=== PATIENT | female | born 1945 ===

== ENCOUNTER 2022-07-13 12:26 | Outpatient (REF) | payer MEDICARE, SELFPAY ==
[2022-07-13 13:49] LABS: MANUAL DIFF FLAG NO
[2022-07-13 13:52] LABS: Basophils Absolute Auto 0.1 X10*3/uL (0.0-0.2); Basophils Percent Auto 0.7 % (0-2); Eosinophils Absolute Auto 1.1 X10*3/uL (0.0-0.4); Eosinophils Percent Auto 12.6 % (0-4); Hematocrit 41.5 % (37.0-47.0); Imm Gran Abs Auto 0.04 X10*3/uL (0.00-0.03); Imm Gran Pct Auto 0.5 % (0.0-0.4); Lymphocytes Absolute Auto 1.6 X10*3/uL (1.2-4.9); Lymphocytes Percent Auto 17.7 % (20-40); Mean Corpuscular HGB Conc 33.7 g/dl (31.0-35.0); Mean Corpuscular Hemoglobin 28.8 pg (27.0-33.0); Mean Corpuscular Volume 85.4 fL (80.0-98.0); Mean Platelet Volume 9.9 fL (9.4-12.3); Monocytes Absolute Auto 0.3 X10*3/uL (0.1-1.2); Monocytes Percent Auto 3.8 % (2-11); Neutrophils Absolute Auto 5.7 x10*3/uL (2.0-8.3); Neutrophils Percent Auto 64.7 % (45-73); Platelet Count 372 X10*3/uL (160-400); Red Blood Count 4.86 X10*6/uL (4.20-5.50); Red Cell Distribution Width 13.2 % (11.0-16.0); White Blood Count 8.8 X10*3/uL (4.8-10.8)
[2022-07-13 14:11] LABS: Anion Gap 13 (12-20); Blood Urea Nitrogen 11 mg/dL (9-16); C Reactive Protein 4.08 mg/dL (< or = 0.50); Calcium 9.8 mg/dL (8.4-10.2); Carbon Dioxide 25 mmol/L (22-29); Chloride 107 mmol/L (96-108); Estimated Glomerular Filt Rate > 60; Glucose Random 106 mg/dL (60-115); Potassium 3.5 mmol/L (3.3-5.1); Rheumatoid Factor < 13.0 IU/mL (<15.0); Sodium 141 mmol/L (135-145)
[2022-07-13 14:33] LABS: Erythrocyte Sedimentation Rate 36 MM/HR (0-20)
[2022-07-15 21:54] LABS: A. Phagocytphilium DNA,RT-PCR NOT DETECTED (NOT DETECTED); Babesia Microti DNA, RT-PCR NOT DETECTED (NOT DETECTED); Borrelia Miyamotoi,DNA RT-PCR NOT DETECTED (NOT DETECTED); E.Chaffeensis DNA RT-PCR NOT DETECTED (NOT DETECTED); Lyme(Borrelia ssp)DNA RT-PCR NOT DETECTED (NOT DETECTED)
== END 2022-07-13 12:27 | disposition home or self-care (01) ==
LOC: HO.HMGCLDS 12:26
PROVIDERS: PCP Internal Medicine; Visit Provider Physician Assistant Medical
DX: M25.50 Pain in unspecified joint (principal); M25.40 Effusion, unspecified joint; R79.82 Elevated C-reactive protein (CRP); R70.0 Elevated erythrocyte sedimentation rate
CPT/HCPCS: 36415; 80048; 84550; 85025; 85652; 86140; 86431; 87798; 87801

== ENCOUNTER 2022-08-18 08:42 | Outpatient (REF) | payer MEDICARE, SELFPAY ==
[2022-08-18 11:28] LABS: MANUAL DIFF FLAG NO
[2022-08-18 11:32] LABS: Basophils Absolute Auto 0.1 X10*3/uL (0.0-0.2); Eosinophils Absolute Auto 0.4 X10*3/uL (0.0-0.4); Eosinophils Percent Auto 5.4 % (0-4); Hematocrit 40.9 % (37.0-47.0); Hemoglobin 13.4 g/dl (12.0-16.0); Imm Gran Abs Auto 0.02 X10*3/uL (0.00-0.03); Imm Gran Pct Auto 0.3 % (0.0-0.4); Lymphocytes Absolute Auto 1.9 X10*3/uL (1.2-4.9); Lymphocytes Percent Auto 26.7 % (20-40); Mean Corpuscular HGB Conc 32.8 g/dl (31.0-35.0); Mean Corpuscular Hemoglobin 28.7 pg (27.0-33.0); Mean Corpuscular Volume 87.6 fL (80.0-98.0); Monocytes Absolute Auto 0.5 X10*3/uL (0.1-1.2); Monocytes Percent Auto 6.2 % (2-11); Neutrophils Absolute Auto 4.4 x10*3/uL (2.0-8.3); Neutrophils Percent Auto 60.4 % (45-73); Platelet Count 342 X10*3/uL (160-400); Red Blood Count 4.67 X10*6/uL (4.20-5.50); Red Cell Distribution Width 13.9 % (11.0-16.0); White Blood Count 7.2 X10*3/uL (4.8-10.8)
[2022-08-18 11:59] LABS: Estimated Average Glucose 97 mg/dL; Hemoglobin A1C 106.9233 umol/L
[2022-08-18 12:20] LABS: Alanine Aminotransferase 29 U/L (0-31); Albumin Level 4.1 g/dL (3.5-5.0); Alkaline Phosphatase 104 U/L (39-117); Anion Gap 13 (12-20); Aspartate Amino Transferase 25 U/L (5-31); Bilirubin Total 0.4 mg/dL (0.0-1.0); Blood Urea Nitrogen 20 mg/dL (9-16); Calcium 10.3 mg/dL (8.4-10.2); Carbon Dioxide 26 mmol/L (22-29); Chloride 107 mmol/L (96-108); Cholesterol 217 mg/dL; Estimated Glomerular Filt Rate > 60; Glucose Fasting 107 mg/dL (60-99); HDL Cholesterol 61 mg/dL; LDL Cholesterol Calculated 143 mg/dl; Potassium 4.3 mmol/L (3.3-5.1); Sodium 142 mmol/L (135-145); Total Protein 6.9 g/dL (6.5-8.0); Triglycerides 67 mg/dL
[2022-08-18 12:38] LABS: TSH reflex Free T4 0.72 uIU/mL (0.32-4.0)
== END 2022-08-18 08:43 | disposition home or self-care (01) ==
LOC: HO.HMGCLDS 08:42
PROVIDERS: PCP Internal Medicine; Visit Provider Internal Medicine
DX: E03.9 Hypothyroidism, unspecified (principal)
CPT/HCPCS: 36415; 80053; 80061; 83036; 84443; 85025

== ENCOUNTER 2023-03-13 13:52 | Outpatient (AMB) | payer MEDICARE, SELFPAY ==
[2023-03-13 14:13] VITALS: BP 140/64; PULSE 55; O2SAT 97; BMI 43.7
--- NOTE | 2023-03-13 14:13 | A.OFFVIS_ITS ---
Intake Vital Signs 03/13/23 14:13 Height 5 ft Weight 224 lb BMI 43.7 BP 140/64 H Blood Pressure Location Lt brachial Position Sitting Pulse 55 Pulse Source Pulse Oximeter Pulse Oximetry (%) 97 Oxygen Delivery Method Room Air Intake Visit Reasons: Obstructive sleep apnea Intake Note: pt is here as a new patient, no problem with sleeping and some short of breath with fast walking. 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 Allergies acetaminophen [From Percocet] Allergy (Verified 03/13/23 16:03) Itching, swelling of the eyelids oxycodone [From Percocet] Allergy (Verified 03/13/23 16:03) Itching, swelling of the eyelids bees Allergy (Uncoded 03/13/23 16:03) itching Medication List - Last Reconciled 03/13/23 by Jesus Starr MD albuterol sulfate 90 mcg/actuation 2 puffs inhalation Q6H PRN amlodipine 5 mg PO DAILY aspirin (Adult Aspirin Regimen) 81 mg PO DAILY ibuprofen 800 mg PO Q8H isosorbide mononitrate ER 30 mg PO DAILY levothyroxine 150 mcg PO DAILY Do you need a note to return to daycare/school/sports/work: No HPI Obstructive sleep apnea HPI Details This is 77 years old very pleasant female of [place] background. Is being seen for the 1st time, as she needed a labor relations specialist on board. She speaks Malay very well and we had a detailed discussion. Actually I have seen her a few weeks ago, who has advanced chronic obstructive pulmonary disease, and he came today to have pulmonary function test. Silvia is more worried and concerned about her then herself. She has an interesting history as follows. She has always been overweight. Back in 2016 she underwent right knee replacement surgery. Post surgery she had low O2 and also manifested breathing pattern of so sleep apnea. She was sent home on oxygen. Later on she also had sleep study which was positive for obstructive sleep apnea and she was provided with this CPAP . To use at night Patient use the CPAP as well as O2 up until 2018, when she and her went to visit [place] and and stayed there for 3 months. Before she left for [place] and she had returned her CPAP as well as O2 equipment. On coming back from [place] she did not have any problem with sleep, she claims that she has been okay and has not felt the need for using CPAP. She was sent for a sleep study at [facility], they tried to quit nasal mask, but she could not tolerated. She declined to use the CPAP. Again she tells me that she has had no problem in sleeping. Her has never complained of her snoring. She is not sure about her oxygen at night. Overnight oximetry recording has not been done. I HAVE MENTIONED THAT WE SHOULD DO PULMONARY FUNCTION TEST, SHE TOLD ME THAT SHE HAS HAD SOME TEST RECENTLY AT [facility]. SO BEFORE I ORDERED A NEW PFT WE ARE GOING TO CHECK INTO. During the days she does get short of breath on walking around, and at times she has some cough and feels like having wheezing. She has albuterol HFA on hand for the past many years but she has really not needed to use. PATIENT IS A NONSMOKER EXCEPT FOR A FEW YEARS IN HER 20S. SHE IS BEING TREATED FOR HYPOTHYROIDISM, AND ALSO FOR QUESTION OF ANGINA. PFS . [facility] Medical History (Updated 03/13/23 @ 16:22 by Jesus Starr MD) Restrictive lung disease Morbid obesity Surgical History History of surgery of uterus History of shoulder surgery Hx of total knee replacement Hx of cholecystectomy Family History Father No problems noted. Mother Breast cancer Lung cancer Sister Breast cancer Social History Housing: House Patient Tobacco Use Status: Former Tobacco user (30 years ago) e-Cigarette/Vaping Use: Never Used Current occupational status: retired Cognitive needs: No Hearing needs: No Vision needs: Yes Review of Systems Const All systems reviewed & are unremarkable except as noted in HPI and below Eyes Reports no additional complaints ENT Reports no additional complaints and Denies nasal obstruction (Has the some kind of blockage of the right nostril, chronically ) Card Denies chest pain, Denies irregular heart rhythm, Denies leg edema and Reports dyspnea on exertion (Mild to moderate) Resp Denies cough, Reports dyspnea on exertion (Mild to moderate) and Denies wheezing GI Reports no additional complaints Reports no additional complaints Musc Reports arthralgias (Knees and shoulders) Skin/Breast Reports system reviewed and no additional complaints, except as documented Neuro Reports no additional complaints Psych Reports no additional complaints Endo Reports other (Hypothyroidism being treated with med) Lorenzo/Lymph Reports no additional complaints Aller/Immun Reports no additional complaints and Denies wheezing Physical Exam Vital Signs: Last Vital Signs Pulse 55 03/13/23 14:13 BP 140/64 H 03/13/23 14:13 Pulse Ox 97 03/13/23 14:13 Oxygen Delivery Method Room Air 03/13/23 14:13 BMI result Body Mass Index 43.7 Patient is grossly obese, with a round face. Const General: comfortable, no acute distress, alert and awake Orientation/consciousness: patient oriented x3 HEENT Head: Yes normal to inspection General nose exam: No nasal polyps present, mucous membranes and turbinates abnormal (There is moderate hypertrophy of the middle turbinate on the right side) and No nasal discharge present Face and sinus: Yes sinuses nontender Mouth: oropharynx normal Throat: Yes posterior oropharynx normal Eyes General: appearance normal, both eyes and all related structures Neck Neck: Yes normal visual inspection, Yes no lymphadenopathy, Yes trachea midline and Yes no JVD Thyroid: Thyroid normal Chest Chest palpation & inspection: normal inspection of the chest, normal palpation of entire chest wall and no tenderness Resp Other: Percussion note not perceptible because of thick chest wall. Breath sounds are as moderately distant. But no wheezes rhonchi or crepitations are heard. Cardio Palpation: normal PMI Rate: regular rate Rhythm: regular rhythm Heart sounds: no gallops and no murmurs GI Palpation (GI): Soft to palpation, nontender, No hepatosplenomegaly present and no masses Auscultation: normal bowel sounds Back/Spine/Pelvis Thoracic/Lumbar Spine: thoracic and lumbar spine normal to inspection and thoraco-lumbar ROM limited Skin General skin exam: no rashes or lesions noted Neuro General: patient oriented x3 and no focal motor deficits Cranial nerves: Yes CN's II-XII intact bilaterally Extrem General: Yes normal to inspection, Yes no clubbing, cyanosis or edema and Yes no calf tenderness Psych Appearance: grossly normal and well kempt Speech and movement: Normal speech and movement present Assessment & Plan Assessment & Plan (1) Morbid obesity: Comment: BMI= 43.7 , STRONG POSSIBILITY OF OBSTRUCTIVE SLEEP APNEA. PATIENT IS AWARE OF BEING OVERWEIGHT, SHE IS NOT ABLE TO LOSE MUCH WEIGHT. Code(s): E66.01 - Morbid (severe) obesity due to excess calories (2) Sleep apnea: Comment: PATIENT DOES HAVE HISTORY OF SLEEP APNEA DOCUMENTED AFTER HER KNEE SURGERY IN 2016, AND SUBSEQUENTLY WITH HIS SLEEP STUDY. USED CPAP AND O2 AT NIGHT BETWEEN 2016 TO 2019, WHEN SHE STOPPED USING AND RETURNED THE CPAP WELL OXYGEN EQUIPMENT. PATIENT CLAIMS THAT SHE SLEEPS WELL WHOLE NIGHT, AND WAKES UP ONLY ONCE OR TWICE TO GO TO THE BATHROOM. SHE DOES NOT WANT TO USE THE CPAP. SHE IS SLEEP STUDY IN THE SLEEP LAB HAS BEEN SCHEDULED BY HER PRIMARY CARE PHYSICIAN BUT SHE SAY IS SHE IS NOT INTERESTED IN HAVING THE STUDY. IF WE CAN DOCUMENT TO HYPOXEMIA AT NIGHT SHE WOULD BE WILLING TO USE OXYGEN AT NIGHT. I WILL ARRANGE FOR DOING OVERNIGHT OXIMETRY RECORDING. Code(s): G47.30 - Sleep apnea, unspecified (3) Nocturnal hypoxia: Comment: used supplemental O2, pt has not seeing pulmonology because of insurance NOTED ABOVE, SHE NEEDS TO HAVE OVERNIGHT OXIMETRY RECORDING. Code(s): G47.34 - Idiopathic sleep related nonobstructive alveolar hypoventilation (4) Restrictive lung disease: Comment: BECAUSE OF HER MORBID OBESITY SHE IS EXPECTED TO HAVE SIGNIFICANT RESTRICTIVE LUNG DISEASE. I WILL ORDER A CHEST X-RAY. SHE IS ADVISED THAT SHE NEEDS TO LOSE WEIGHT. SHE IS ALSO ADVISED TO DO DEEP BREATHING EXERCISES. SHE DOES HAVE AN INCENTIVE SPIROMETRY DEVICE AT HOME. Code(s): J98.4 - Other disorders of lung Orders: Orders XR chest 1V Today E66.01 - Morbid (severe) obesity due to excess calories, J98.4 - Other disorders of lung Coding Level of Care Code New Pt Level 4 (97987) Diagnoses Morbid obesity E66.01 Sleep apnea G47.30 Nocturnal hypoxia G47.34 Restrictive lung disease J98.4
== END 2023-03-13 15:13 | disposition home or self-care (01) ==
PROVIDERS: PCP Internal Medicine; Visit Provider Internal Medicine
DX: E66.01 Morbid (severe) obesity due to excess calories (principal); G47.30 Sleep apnea, unspecified; G47.34 Idiopathic sleep related nonobstructive alveolar hypoventilation; J98.4 Other disorders of lung
CPT/HCPCS: 99204

== ENCOUNTER → 2023-03-13 13:52 | Outpatient (BNVA) | payer MEDICARE, SELFPAY | PROVIDERS: PCP Internal Medicine; Visit Provider Internal Medicine ==

== ENCOUNTER 2023-03-22 08:59 | Outpatient (REF) | payer MEDICARE, SELFPAY | END 2023-03-22 09:00 | disposition home or self-care (01) | LOC: HO.XRAY 08:59 | PROVIDERS: PCP Internal Medicine; Visit Provider Internal Medicine | DX: E66.01 Morbid (severe) obesity due to excess calories (principal); J98.4 Other disorders of lung | CPT/HCPCS: 71045 ==

== ENCOUNTER 2023-05-16 11:52 | Outpatient (AMB) | payer MEDICARE, SELFPAY ==
[2023-05-16 11:54] VITALS: BP 136/80; PULSE 62; O2SAT 98; BMI 43.0
--- NOTE | 2023-05-16 11:54 | A.OFFPC_ITS ---
Vital Signs 05/16/23 11:54 Height 5 ft Weight 220 lb BMI 43.0 BP 136/80 Blood Pressure Location Lt brachial Position Sitting Pulse 62 Pulse Source Pulse Oximeter Pulse Oximetry (%) 98 Oxygen Delivery Method Room Air Intake Visit Reasons: Annual PE/HTN Intake Note: Pt is here today for PE. Allergies acetaminophen [From Percocet] Allergy (Verified 05/16/23 11:55) Itching, swelling of the eyelids oxycodone [From Percocet] Allergy (Verified 05/16/23 11:55) Itching, swelling of the eyelids bees Allergy (Uncoded 05/16/23 11:55) itching Medication List - Last Reconciled 05/16/23 by Queta Ambriz MD albuterol sulfate 90 mcg/actuation 2 puffs inhalation Q6H PRN amlodipine 5 mg PO DAILY aspirin (Adult Aspirin Regimen) 81 mg PO DAILY ibuprofen 800 mg PO Q8H isosorbide mononitrate ER 30 mg PO DAILY levothyroxine 150 mcg PO DAILY Tobacco use date assessed: 05/16/23 Fall risk assessment: No Falls in past year Last assessed Fall Risk: 05/16/23 Dental Screening Dental Screen Date: 05/16/23 Did you have a dental visit in the last 12 months?: Yes Did you have a dental problem in the last 6 months where you did not have access to dental care?: No Was dental information given to patient?: Patient has dentist HPI Annual PE/HTN HPI Details Pt presents for PE. Pt was diagnosed with TENZIN but could not tolerate Cpap. 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 Mother Breast cancer Lung cancer Sister Breast cancer Social History Housing: House Patient Tobacco Use Status: Former Tobacco user (30 years ago) e-Cigarette/Vaping Use: Never Used Current occupational status: retired Cognitive needs: No Hearing needs: No Vision needs: Yes Questionnaire Thrive Questionnaire Date Thrive assessed: 08/15/22 AUDIT C Alcohol Use Questionnaire (AUDIT-C) 1. How often do you have a drink containing alcohol?: Never 3. How often do you have six or more drinks on one occasion?: Never Total Score: 0 ZACH-7 AMB Questionnaire ZACH-7 Date ZACH - 7 assessed: 08/15/22 Source: Developed by Drs. Kulwinder Carcamo, Modesta Capellan, Kory Robert and colleagues, with an educational clara from [employer]. Review of Systems Const All systems reviewed & are unremarkable except as noted in HPI and below Reports no additional complaints Eyes Reports no additional complaints ENT Reports no additional complaints Card Reports no additional complaints Resp Reports no additional complaints GI Reports no additional complaints Reports no additional complaints Physical exam (Primary Care) Vital Signs: Last Vital Signs Pulse 62 05/16/23 11:54 BP 136/80 05/16/23 11:54 Pulse Ox 98 05/16/23 11:54 Oxygen Delivery Method Room Air 05/16/23 11:54 BMI result Body Mass Index 43.0 Tobacco/Smoking Status: Tobacco use Status Tobacco use date assessed 05/16/23 05/16/23 11:58 Patient Tobacco Use Status Former Tobacco user (30 05/16/23 11:58 years ago) e-Cigarette/Vaping Use Never Used 05/16/23 11:58 Thrive Assessment: Date of Thrive Assessment Date Thrive assessed 08/15/22 05/16/23 11:58 Const General: no acute distress HENMT Head: Yes normal to inspection Eyes General: appearance normal, both eyes and all related structures Neck Neck: Yes no lymphadenopathy and Yes supple Resp Effort & Inspection: normal respiratory effort Auscultation: clear to auscultation bilaterally Cardio Rhythm: regular rhythm Heart sounds: S1 normal heart sound present and S2 normal heart sound present GI Inspection: Yes normal to inspection Palpation (GI): Soft to palpation Percussion: Yes normal to percussion Auscultation: normal bowel sounds Assessment and Plan Assessment & Plan (1) Nocturnal hypoxia: Comment: used supplemental O2, pt has not seeing pulmonology because of insurance NOTED ABOVE, SHE NEEDS TO HAVE OVERNIGHT OXIMETRY RECORDING. Code(s): G47.34 - Idiopathic sleep related nonobstructive alveolar hypoventilation (2) Hypothyroid: Code(s): E03.9 - Hypothyroidism, unspecified Plan: Continue levothyroxine check TSH (3) HTN (hypertension): Code(s): I10 - Essential (primary) hypertension Plan: Continue current medications follow-up in 6 months with a fasting labs before (4) Hyperlipidemia: Code(s): E78.5 - Hyperlipidemia, unspecified Plan: Low-cholesterol diet increase exercise weight loss discussed with the patient (5) Obesity: Code(s): E66.9 - Obesity, unspecified Plan: Weight loss discussed with the patient Orders: Orders TSH reflex Free T4 6 Months E03.9 - Hypothyroidism, unspecified, G47.34 - Idiopathic sleep related nonobstructive alveolar hypoventilation, I10 - Essential (primary) hypertension Comprehensive [place]. Panel Fast 6 Months E03.9 - Hypothyroidism, unspecified, G47.34 - Idiopathic sleep related nonobstructive alveolar hypoventilation, I10 - Essential (primary) hypertension Complete Blood Count Auto Diff 6 Months E03.9 - Hypothyroidism, unspecified, G47.34 - Idiopathic sleep related nonobstructive alveolar hypoventilation, I10 - Essential (primary) hypertension Lipid Panel 6 Months E03.9 - Hypothyroidism, unspecified, G47.34 - Idiopathic sleep related nonobstructive alveolar hypoventilation, I10 - Essential (primary) hypertension Medications: Refilled ibuprofen 800 mg PO Q8H 30 tabs 1RF Coding Level of Care Code Est Pt Level 4 (17452) Diagnoses Nocturnal hypoxia G47.34 Hypothyroid E03.9 HTN (hypertension) I10 Hyperlipidemia E78.5 Obesity E66.9
== END 2023-05-16 12:28 | disposition home or self-care (01) ==
PROVIDERS: Visit Provider Internal Medicine
DX: G47.34 Idiopathic sleep related nonobstructive alveolar hypoventilation (principal); E03.9 Hypothyroidism, unspecified; E66.9 Obesity, unspecified; Z68.41 Body mass index [BMI] 40.0-44.9, adult; I10 Essential (primary) hypertension; E78.5 Hyperlipidemia, unspecified
CPT/HCPCS: 99214

== ENCOUNTER 2023-05-16 14:39 | Outpatient (AMB) | payer MEDICARE, SELFPAY ==
[2023-05-16 15:10] VITALS: BP 130/70; PULSE 63; O2SAT 97; BMI 43.0
--- NOTE | 2023-05-16 15:10 | MHC.OFFVIS ---
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 Allergies acetaminophen [From Percocet] Allergy (Verified 05/16/23 15:48) Itching, swelling of the eyelids oxycodone [From Percocet] Allergy (Verified 05/16/23 15:48) Itching, swelling of the eyelids bees Allergy (Uncoded 05/16/23 15:48) itching Medication List - Last Reconciled 05/16/23 by Jesus Starr MD albuterol sulfate 90 mcg/actuation 2 puffs inhalation Q6H PRN amlodipine 5 mg PO DAILY aspirin (Adult Aspirin Regimen) 81 mg PO DAILY ibuprofen 800 mg PO Q8H isosorbide mononitrate ER 30 mg PO DAILY levothyroxine 150 mcg PO DAILY Do you need a note to return to daycare/school/sports/work: No HPI Obstructive sleep apnea HPI Details THIS 77 YEARS OLD VERY PLEASANT FEMALE IS HERE FOR FOLLOW-UP. , SHE IS MORBIDLY OBESE AND HAS CLINICAL FEATURES OF OBSTRUCTIVE SLEEP APNEA. HOWEVER SHE HAS DECLINED TO GO FOR ANY TESTING AND USE CPAP. SHE DOES NOT HAVE ANY CHRONIC PULMONARY DISEASE BUT BECAUSE OF HER MORBID OBESITY IS EXPECTED TO HAVE SIGNIFICANT RESTRICTIVE LUNG DISEASE. SHE WAS CHECKED WITH OVERNIGHT OXIMETRY RECORDING AND FOUND TO HAVE O2 SAT BELOW 88% FOR 36 MINUTES. SHE CLAIMS THAT SHE IS SLEEPING WELL, AND DENIES ANY. DAYTIME SLEEPINESS SHE WILL BE WILLING TO USE O2 AT NIGHTTIME. [facility] Medical History Restrictive lung disease Morbid obesity Surgical History History of surgery of uterus History of shoulder surgery Hx of total knee replacement Hx of cholecystectomy Family History Father No problems noted. Mother Breast cancer Lung cancer Sister Breast cancer Social History Housing: House Patient Tobacco Use Status: Former Tobacco user (30 years ago) e-Cigarette/Vaping Use: Never Used Current occupational status: retired Cognitive needs: No Hearing needs: No Vision needs: Yes Review of Systems Const All systems reviewed & are unremarkable except as noted in HPI and below Eyes Reports no additional complaints ENT Reports no additional complaints and Denies nasal obstruction (Has the some kind of blockage of the right nostril, chronically ) Card Denies chest pain, Denies irregular heart rhythm, Denies leg edema and Reports dyspnea on exertion (Mild to moderate) Resp Denies cough, Reports dyspnea on exertion (Mild to moderate) and Denies wheezing GI Reports no additional complaints Reports no additional complaints Musc Reports arthralgias (Knees and shoulders) Skin/Breast Reports system reviewed and no additional complaints, except as documented Neuro Reports no additional complaints Psych Reports no additional complaints Endo Reports other (Hypothyroidism being treated with med) Lorenzo/Lymph Reports no additional complaints Aller/Immun Reports no additional complaints and Denies wheezing Physical Exam Vital Signs: Last Vital Signs Pulse 63 05/16/23 15:10 BP 130/70 05/16/23 15:10 Pulse Ox 97 05/16/23 15:10 Oxygen Delivery Method Room Air 05/16/23 15:10 BMI result Body Mass Index 43.0 Patient is grossly obese, with a round face. Const General: comfortable, no acute distress, alert and awake Orientation/consciousness: patient oriented x3 HEENT Head: Yes normal to inspection General nose exam: No nasal polyps present, mucous membranes and turbinates abnormal (There is moderate hypertrophy of the middle turbinate on the right side) and No nasal discharge present Face and sinus: Yes sinuses nontender Mouth: oropharynx normal Throat: Yes posterior oropharynx normal Eyes General: appearance normal, both eyes and all related structures Neck Neck: Yes normal visual inspection, Yes no lymphadenopathy, Yes trachea midline and Yes no JVD Thyroid: Thyroid normal Chest Chest palpation & inspection: normal inspection of the chest, normal palpation of entire chest wall and no tenderness Resp Other: Percussion note not perceptible because of thick chest wall. Breath sounds are as moderately distant. But no wheezes rhonchi or crepitations are heard. Cardio Palpation: normal PMI Rate: regular rate Rhythm: regular rhythm Heart sounds: no gallops and no murmurs GI Palpation (GI): Soft to palpation, nontender, No hepatosplenomegaly present and no masses Auscultation: normal bowel sounds Back/Spine/Pelvis Thoracic/Lumbar Spine: thoracic and lumbar spine normal to inspection and thoraco-lumbar ROM limited Skin General skin exam: no rashes or lesions noted Neuro General: patient oriented x3 and no focal motor deficits Cranial nerves: Yes CN's II-XII intact bilaterally Extrem General: Yes normal to inspection, Yes no clubbing, cyanosis or edema and Yes no calf tenderness Psych Appearance: grossly normal and well kempt Speech and movement: Normal speech and movement present Results Reviewed Results Reviewed: OVERNIGHT OXIMETRY RECORDING SHOWS THAT HER O2 SAT WAS BELOW 88% FOR 36 MINUTES. THIS QUALIFIES HER FOR USE OF OXYGEN AT NIGHT. Assessment & Plan Assessment & Plan (1) Morbid obesity: Comment: BMI= 43.0 , PATIENT IS AWARE OF BEING OVERWEIGHT, SHE IS NOT ABLE TO LOSE MUCH WEIGHT. Code(s): E66.01 - Morbid (severe) obesity due to excess calories Plan: DISCUSSED ABOUT HER WEIGHT AND ENCOURAGED TO LOSE WEIGHT EVEN AT A VERY SLOW PACE. (2) Restrictive lung disease: Comment: BECAUSE OF HER MORBID OBESITY SHE IS EXPECTED TO HAVE SIGNIFICANT RESTRICTIVE LUNG DISEASE. SHE IS ADVISED THAT SHE NEEDS TO LOSE WEIGHT. SHE IS ALSO ADVISED TO DO DEEP BREATHING EXERCISES. SHE DOES HAVE AN INCENTIVE SPIROMETRY DEVICE AT HOME. Code(s): J98.4 - Other disorders of lung Plan: ABOVE (3) Nocturnal hypoxia: Comment: Used supplemental O2, Pt has not been seeing pulmonology because of insurance Finally she agreed to have overnight oximetry recording which has confirmed that her O2 sat was below 88% for 36 minutes. Code(s): G47.34 - Idiopathic sleep related nonobstructive alveolar hypoventilation Plan: Explained to her that she would benefit from use of O2 at night. She is agreeable. So O2 concentrator has been ordered and she is advised to use 2 L/minute at night. (4) Sleep apnea: Comment: PATIENT DOES HAVE HISTORY OF SLEEP APNEA DOCUMENTED AFTER HER KNEE SURGERY IN 2016, AND SUBSEQUENTLY WITH HIS SLEEP STUDY. USED CPAP AND O2 AT NIGHT BETWEEN 2016 TO 2019, WHEN SHE STOPPED USING AND RETURNED THE CPAP WELL OXYGEN EQUIPMENT. PATIENT CLAIMS THAT SHE SLEEPS WELL WHOLE NIGHT, AND WAKES UP ONLY ONCE OR TWICE TO GO TO THE BATHROOM. SHE DOES NOT WANT TO USE THE CPAP. Code(s): G47.30 - Sleep apnea, unspecified Plan: as above Coding Level of Care Code Est Pt Level 3 (81168) Diagnoses Morbid obesity E66.01 Restrictive lung disease J98.4 Nocturnal hypoxia G47.34 Sleep apnea G47.30
== END 2023-05-16 16:00 | disposition home or self-care (01) ==
PROVIDERS: PCP Internal Medicine; Visit Provider Internal Medicine
DX: E66.01 Morbid (severe) obesity due to excess calories (principal); J98.4 Other disorders of lung; G47.34 Idiopathic sleep related nonobstructive alveolar hypoventilation; G47.30 Sleep apnea, unspecified
CPT/HCPCS: 99213

== ENCOUNTER → 2023-05-16 14:39 | Outpatient (BNVA) | payer MEDICARE, SELFPAY | PROVIDERS: PCP Internal Medicine; Visit Provider Internal Medicine | DX: G47.30 Sleep apnea, unspecified (principal); G47.34 Idiopathic sleep related nonobstructive alveolar hypoventilation; J98.4 Other disorders of lung; E66.01 Morbid (severe) obesity due to excess calories; Z68.41 Body mass index [BMI] 40.0-44.9, adult | CPT/HCPCS: 99212 ==

== ENCOUNTER 2023-09-11 13:40 | Outpatient (AMB) | payer MEDICARE, SELFPAY ==
[2023-09-11 14:03] VITALS: BP 140/74; PULSE 97; O2SAT 96; BMI 43.5
--- NOTE | 2023-09-11 14:03 | A.OFFVIS_ITS ---
Intake Vital Signs 09/11/23 14:03 Height 5 ft Weight 222 lb 10.67 oz BMI 43.5 BP 140/74 H Blood Pressure Location Lt brachial Position Sitting Pulse 97 Pulse Source Pulse Oximeter Pulse Oximetry (%) 96 Oxygen Delivery Method Room Air Intake Visit Reasons: Obstructive sleep apnea Intake Note: pt is here for follow up and states she is okay during the day but night time is not good. Allergies acetaminophen [From Percocet] Allergy (Verified 09/11/23 15:06) Itching, swelling of the eyelids oxycodone [From Percocet] Allergy (Verified 09/11/23 15:06) Itching, swelling of the eyelids bees Allergy (Uncoded 09/11/23 15:06) itching Medication List - Last Reconciled 09/11/23 by Jesus Starr MD albuterol sulfate 90 mcg/actuation 2 puffs inhalation Q6H PRN amlodipine 5 mg PO DAILY aspirin (Adult Aspirin Regimen) 81 mg PO DAILY ibuprofen 800 mg PO Q8H isosorbide mononitrate ER 30 mg PO DAILY levothyroxine 150 mcg PO DAILY Do you need a note to return to daycare/school/sports/work: No HPI Obstructive sleep apnea HPI Details Silvia is 77 years old female with morbid obesity. Past history of obstructive sleep apnea and nocturnal hypoxemia , who used O2 at night for about 3 years and gave up in 2018. Now she complains that she has a restless sleep at night and she feels tired during the daytime. She is stating that she is not getting enough oxygen at nighttime. She has no cough or wheezing. During the day she gets short of breath when she walks around, and this may be due to her severe obesity. She had overnight oximetry recording in March 2023 and her O2 sat was below 88% for 36 minutes. We had to try to get her oxygen at home. However it was not covered by insurance because she did not have an associated medical diagnosis [facility] Medical History Restrictive lung disease Morbid obesity Surgical History History of surgery of uterus History of shoulder surgery Hx of total knee replacement Hx of cholecystectomy Family History Father No problems noted. Mother Breast cancer Lung cancer Sister Breast cancer Social History Housing: House Patient Tobacco Use Status: Former Tobacco user (30 years ago) e-Cigarette/Vaping Use: Never Used Current occupational status: retired Cognitive needs: No Hearing needs: No Vision needs: Yes Review of Systems Const All systems reviewed & are unremarkable except as noted in HPI and below Eyes Reports no additional complaints ENT Reports no additional complaints and Denies nasal obstruction (Has the some kind of blockage of the right nostril, chronically ) Card Denies chest pain, Denies irregular heart rhythm, Denies leg edema and Reports dyspnea on exertion (Mild to moderate) Resp Denies cough, Reports dyspnea on exertion (Mild to moderate) and Denies wheezing GI Reports no additional complaints Reports no additional complaints Musc Reports arthralgias (Knees and shoulders) Skin/Breast Reports system reviewed and no additional complaints, except as documented Neuro Reports no additional complaints Psych Reports no additional complaints Endo Reports other (Hypothyroidism being treated with med) Lorenzo/Lymph Reports no additional complaints Aller/Immun Reports no additional complaints and Denies wheezing Physical Exam Vital Signs: Last Vital Signs Pulse 97 09/11/23 14:03 BP 140/74 H 09/11/23 14:03 Pulse Ox 96 09/11/23 14:03 Oxygen Delivery Method Room Air 09/11/23 14:03 BMI result Body Mass Index 43.5 Patient is grossly obese, with a round face. Const General: comfortable, no acute distress, alert and awake Orientation/consciousness: patient oriented x3 HEENT Head: Yes normal to inspection General nose exam: No nasal polyps present, mucous membranes and turbinates abnormal (There is moderate hypertrophy of the middle turbinate on the right side) and No nasal discharge present Face and sinus: Yes sinuses nontender Mouth: oropharynx normal Throat: Yes posterior oropharynx normal Eyes General: appearance normal, both eyes and all related structures Neck Neck: Yes normal visual inspection, Yes no lymphadenopathy, Yes trachea midline and Yes no JVD Thyroid: Thyroid normal Chest Chest palpation & inspection: normal inspection of the chest, normal palpation of entire chest wall and no tenderness Resp Other: Percussion note not perceptible because of thick chest wall. Breath sounds are as moderately distant. But no wheezes rhonchi or crepitations are heard. Cardio Palpation: normal PMI Rate: regular rate Rhythm: regular rhythm Heart sounds: no gallops and no murmurs GI Palpation (GI): Soft to palpation, nontender, No hepatosplenomegaly present and no masses Auscultation: normal bowel sounds Back/Spine/Pelvis Thoracic/Lumbar Spine: thoracic and lumbar spine normal to inspection and thoraco-lumbar ROM limited Skin General skin exam: no rashes or lesions noted Neuro General: patient oriented x3 and no focal motor deficits Cranial nerves: Yes CN's II-XII intact bilaterally Extrem General: Yes normal to inspection, Yes no clubbing, cyanosis or edema and Yes no calf tenderness Psych Appearance: grossly normal and well kempt Speech and movement: Normal speech and movement present Assessment & Plan Assessment & Plan (1) Morbid obesity: Comment: BMI= 43.5 , PATIENT IS AWARE OF BEING OVERWEIGHT, SHE IS NOT ABLE TO LOSE MUCH WEIGHT. Code(s): E66.01 - Morbid (severe) obesity due to excess calories Plan: Discussed with the patient about her weight, but from practical point of view she is not going to be able to lose much weight. She is already trying to watch her diet. She can not do any vigorous exercise. (2) Sleep apnea: Comment: PATIENT DOES HAVE HISTORY OF SLEEP APNEA DOCUMENTED AFTER HER KNEE SURGERY IN 2016, AND SUBSEQUENTLY WITH HER SLEEP STUDY. USED CPAP AND O2 AT NIGHT BETWEEN 2015 TO 2019, WHEN SHE STOPPED USING AND RETURNED THE CPAP WELL OXYGEN EQUIPMENT. PATIENT CLAIMS THAT SHE WAS SLEEPING WELL WHOLE NIGHT, BUT NOW MORE RECENTLY HER SLEEP IS DITURBED , AND SHE FEELS TIRED DURING DAY TIME . SHE IS REQUESTING IF SHE CAN HAVE O2 TO USE AT NIGHT Code(s): G47.30 - Sleep apnea, unspecified Plan: PULMONARY FUNCTION TEST IS ORDERED TO SEE IF SHE HAS ANY SIGNIFICANT RESTRICTIVE PULMONARY DISORDER. WE NEED TO ORDER O2 FOR HER HOME ON BASIS OF A PULMONARY DIAGNOSIS RATHER THAN SLEEP DIAGNOSIS (3) Nocturnal hypoxia: Comment: Used supplemental O2, Pt has not been seeing pulmonology because of insurance . Finally she agreed to have overnight oximetry recording which has confirmed that her O2 sat was below 88% for 36 minutes. Code(s): G47.34 - Idiopathic sleep related nonobstructive alveolar hypoventilation Plan: PULMONARY FUNCTION TEST IS ORDERED TO CHECK IF WE CAN QUALIFY HER FOR OXYGEN ON BASIS OF A PULMONARY DIAGNOSIS . (4) Restrictive lung disease: Comment: BECAUSE OF HER MORBID OBESITY SHE IS EXPECTED TO HAVE SIGNIFICANT RESTRICTIVE LUNG DISEASE. Code(s): J98.4 - Other disorders of lung Plan: SHE IS ADVISED THAT SHE NEEDS TO LOSE WEIGHT. SHE IS ALSO ADVISED TO DO DEEP BREATHING EXERCISES. SHE DOES HAVE AN INCENTIVE SPIROMETRY DEVICE AT HOME. Orders: Orders PFT pulmonary function test Today E66.01 - Morbid (severe) obesity due to excess calories, G47.34 - Idiopathic sleep related nonobstructive alveolar hypoventilation Coding Level of Care Code Est Pt Level 3 (34229) Diagnoses Morbid obesity E66.01 Sleep apnea G47.30 Nocturnal hypoxia G47.34 Restrictive lung disease J98.4
== END 2023-09-11 14:33 | disposition home or self-care (01) ==
PROVIDERS: PCP Internal Medicine; Visit Provider Internal Medicine
DX: E66.01 Morbid (severe) obesity due to excess calories (principal); G47.30 Sleep apnea, unspecified; G47.34 Idiopathic sleep related nonobstructive alveolar hypoventilation; J98.4 Other disorders of lung
CPT/HCPCS: 99213

== ENCOUNTER → 2023-09-11 13:40 | Outpatient (BNVA) | payer MEDICARE, SELFPAY | PROVIDERS: PCP Internal Medicine; Visit Provider Internal Medicine | DX: E66.01 Morbid (severe) obesity due to excess calories (principal); J98.4 Other disorders of lung; G47.34 Idiopathic sleep related nonobstructive alveolar hypoventilation; G47.30 Sleep apnea, unspecified | CPT/HCPCS: 99212 ==

== ENCOUNTER 2023-09-13 09:48 | Outpatient (REF) | payer MEDICARE, SELFPAY ==
[2023-09-13 09:35] VITALS: PULSE 82; RESP 16; O2SAT 96
--- NOTE | 2023-09-13 11:03 | PFT_ITS ---
Flows: FEV1: 100 % of predicted at 1.76 L FVC: 100 % of predicted at 2.30 L FEV1/FVC: 76 % Bronchodilator response: Absent Volumes: Total lung capacity: 90 % of predicted at 3.82 L Residual volume: 87 % of predicted at 1.58 L Slow vital capacity: 94 % of predicted at 2.24 L Expiratory reserve volume: 133 % of predicted at 0.73 L Diffusion capacity: Normal Impression: No obstructive or restrictive ventilatory defect. No bronchodilator response. Normal pulmonary function test. MTDD
== END 2023-09-13 09:49 | disposition home or self-care (01) ==
LOC: HO.RESP 09:48
PROVIDERS: PCP Internal Medicine; Visit Provider Internal Medicine
DX: E66.01 Morbid (severe) obesity due to excess calories (principal); G47.34 Idiopathic sleep related nonobstructive alveolar hypoventilation
CPT/HCPCS: 94010; 94640; 94727; 94729

== ENCOUNTER → 2023-09-13 11:03 | Outpatient (BNV) | payer MEDICARE, SELFPAY | PROVIDERS: PCP Internal Medicine; Visit Provider Internal Medicine Pulmonary Disease | DX: R06.09 Other forms of dyspnea (principal) | CPT/HCPCS: 94060; 94727; 94729 ==

== ENCOUNTER 2023-11-13 09:37 | Outpatient (REF) | payer MEDICARE, SELFPAY ==
[2023-11-13 10:22] LABS: MANUAL DIFF FLAG NO
[2023-11-13 10:33] LABS: Basophils Absolute Auto 0.1 X10*3/uL (0.0-0.2); Eosinophils Absolute Auto 0.3 X10*3/uL (0.0-0.4); Eosinophils Percent Auto 4.3 % (0-4); Hematocrit 43.1 % (37.0-47.0); Hemoglobin 14.2 g/dl (12.0-16.0); Imm Gran Abs Auto 0.04 X10*3/uL (0.00-0.03); Imm Gran Pct Auto 0.6 % (0.0-0.4); Lymphocytes Absolute Auto 2.1 X10*3/uL (1.2-4.9); Mean Corpuscular HGB Conc 32.9 g/dl (31.0-35.0); Mean Corpuscular Hemoglobin 28.5 pg (27.0-33.0); Mean Corpuscular Volume 86.4 fL (80.0-98.0); Mean Platelet Volume 9.4 fL (9.4-12.3); Monocytes Absolute Auto 0.4 X10*3/uL (0.1-1.2); Neutrophils Absolute Auto 4.3 x10*3/uL (2.0-8.3); Neutrophils Percent Auto 59.1 % (45-73); Platelet Count 372 X10*3/uL (160-400); Red Blood Count 4.99 X10*6/uL (4.20-5.50); Red Cell Distribution Width 13.2 % (11.0-16.0); White Blood Count 7.2 X10*3/uL (4.8-10.8)
[2023-11-13 11:24] LABS: Alanine Aminotransferase 26 U/L (0-31); Albumin Level 4.2 g/dL (3.5-5.0); Alkaline Phosphatase 79 U/L (39-117); Anion Gap 11 (12-20); Aspartate Amino Transferase 25 U/L (5-31); Bilirubin Total 0.4 mg/dL (0.0-1.0); Blood Urea Nitrogen 14 mg/dL (9-16); Calcium 10.7 mg/dL (8.4-10.2); Carbon Dioxide 29 mmol/L (22-29); Chloride 106 mmol/L (96-108); Cholesterol 220 mg/dL (<200); Estimated Glomerular Filt Rate > 60; Glucose Fasting 113 mg/dL (60-99); HDL Cholesterol 58 mg/dL (>40); LDL Cholesterol Calculated 146 mg/dL (<100); Potassium 4.3 mmol/L (3.3-5.1); Sodium 142 mmol/L (135-145); Total Protein 7.5 g/dL (6.5-8.0); Triglycerides 81 mg/dL (<150)
== END 2023-11-13 09:38 | disposition home or self-care (01) ==
LOC: HO.HMGCLDS 09:37
PROVIDERS: PCP Internal Medicine; Visit Provider Internal Medicine
DX: E03.9 Hypothyroidism, unspecified (principal); I10 Essential (primary) hypertension; G47.34 Idiopathic sleep related nonobstructive alveolar hypoventilation
CPT/HCPCS: 36415; 80053; 80061; 84439; 84443; 85025

== ENCOUNTER 2023-11-15 12:10 | Outpatient (AMB) | payer MEDICARE, SELFPAY ==
--- NOTE | 2023-11-15 12:21 | MHC.PC.OV ---
Vital Signs 11/15/23 12:23 Height 5 ft Weight 215 lb 8 oz BMI 42.1 BP 139/80 Blood Pressure Location Lt brachial Position Sitting Pulse 84 Pulse Source Pulse Oximeter Pulse Oximetry (%) 98 Oxygen Delivery Method Room Air Intake Visit Reasons: 6 month follow up Allergies acetaminophen [From Percocet] Allergy (Verified 11/15/23 12:25) Itching, swelling of the eyelids oxycodone [From Percocet] Allergy (Verified 11/15/23 12:25) Itching, swelling of the eyelids bees Allergy (Uncoded 09/11/23 15:06) itching Medication List - Last Reconciled 11/15/23 by Queta Ambriz MD albuterol sulfate 90 mcg/actuation 2 puffs inhalation Q6H PRN amlodipine-valsartan 5-160 mg 1 tab PO DAILY aspirin (Adult Aspirin Regimen) 81 mg PO DAILY ibuprofen 800 mg PO .qd isosorbide mononitrate ER 30 mg PO DAILY levothyroxine 137 mcg PO DAILY Tobacco use date assessed: 11/15/23 Fall risk assessment: No Falls in past year Last assessed Fall Risk: 11/15/23 Dental Screening Dental Screen Date: 11/15/23 Did you have a dental visit in the last 12 months?: No Did you have a dental problem in the last 6 months where you did not have access to dental care?: No Was dental information given to patient?: No HPI 6 month follow up HPI Details Pt presents for f/u HTN, hypothyroid, hyperlipidemia PFSH Medical History (Updated 11/15/23 @ 13:01 by Queta Ambriz MD) Restrictive lung disease Morbid obesity Surgical History History of surgery of uterus History of shoulder surgery Hx of total knee replacement Hx of cholecystectomy Family History Father No problems noted. Mother Breast cancer Lung cancer Sister Breast cancer Social History Housing: House Patient Tobacco Use Status: Former Tobacco user (30 years ago) e-Cigarette/Vaping Use: Never Used Current occupational status: retired Cognitive needs: No Hearing needs: No Vision needs: Yes Questionnaire Thrive Questionnaire Date Thrive assessed: 08/15/22 ZACH-7 AMB Questionnaire ZACH-7 Date ZACH - 7 assessed: 08/15/22 Source: Developed by Drs. Kulwinder Carcamo, Modesta Capellan, Kory Robert and colleagues, with an educational clara from [employer]. Review of Systems Const All systems reviewed & are unremarkable except as noted in HPI and below Reports no additional complaints Eyes Reports no additional complaints ENT Reports no additional complaints Card Reports no additional complaints Resp Reports no additional complaints GI Reports no additional complaints Reports no additional complaints Physical exam (Primary Care) Vital Signs: Last Vital Signs Pulse 84 11/15/23 12:23 BP 152/80 H 11/15/23 12:23 Pulse Ox 98 11/15/23 12:23 Oxygen Delivery Method Room Air 11/15/23 12:23 BMI result Body Mass Index 42.1 Tobacco/Smoking Status: Tobacco use Status Tobacco use date assessed 11/15/23 11/15/23 12:25 Patient Tobacco Use Status Former Tobacco user (11/15/23 12:25 years ago) e-Cigarette/Vaping Use Never Used 11/15/23 12:25 Thrive Assessment: Date of Thrive Assessment Date Thrive assessed 08/15/22 11/15/23 12:25 Const General: no acute distress HENMT Head: Yes normal to inspection Ears: hearing grossly normal bilaterally Face and sinus: Yes normal facial exam Mouth: Normal oral and palatal mucosa present Throat: Yes posterior oropharynx normal Eyes General: appearance normal, both eyes and all related structures Neck Neck: Yes no lymphadenopathy and Yes supple Resp Effort & Inspection: normal respiratory effort Auscultation: clear to auscultation bilaterally Cardio Rhythm: regular rhythm Heart sounds: S1 normal heart sound present and S2 normal heart sound present GI Inspection: Yes normal to inspection Palpation (GI): Soft to palpation Percussion: Yes normal to percussion Auscultation: normal bowel sounds Assessment and Plan Assessment & Plan (1) Hypothyroid: Code(s): E03.9 - Hypothyroidism, unspecified Plan: Decrease levothyroxine to 137 mcg and check TSH in 2 months (2) HTN (hypertension): Code(s): I10 - Essential (primary) hypertension Plan: Change amlodipine to amlodipine with valsartan , check basic metabolic panel in 1 week follow-up in 6 weeks (3) Hyperlipidemia: Comment: Patient refuses medications Code(s): E78.5 - Hyperlipidemia, unspecified Plan: Low-cholesterol diet increase physical activity weight loss discussed with the patient (4) Morbid obesity: Comment: BMI= 43.5 , PATIENT IS AWARE OF BEING OVERWEIGHT, SHE IS NOT ABLE TO LOSE MUCH WEIGHT. Code(s): E66.01 - Morbid (severe) obesity due to excess calories Plan: Increase physical activity decrease caloric intake and weight loss discussed with the patient Orders: Orders TSH reflex Free T4 2 Months E03.9 - Hypothyroidism, unspecified Basic Metabolic Panel 1 Week I10 - Essential (primary) hypertension Medications: New amlodipine-valsartan 5-160 mg 1 tab PO DAILY 90 tabs 0RF levothyroxine 137 mcg PO DAILY 90 caps 1RF Changed From ibuprofen 800 mg PO Q8H 30 tabs 1RF To ibuprofen 800 mg PO .qd 30 tabs 2RF Coding Level of Care Code Est Pt Level 4 (61030) Diagnoses Hypothyroid E03.9 HTN (hypertension) I10 Hyperlipidemia E78.5 Morbid obesity E66.01
[2023-11-15 12:23] VITALS: BP 139/80; PULSE 84; O2SAT 98; BMI 42.1
== END 2023-11-15 13:08 | disposition home or self-care (01) ==
PROVIDERS: PCP Internal Medicine; Visit Provider Internal Medicine
DX: E03.9 Hypothyroidism, unspecified (principal); I10 Essential (primary) hypertension; E66.01 Morbid (severe) obesity due to excess calories; Z68.41 Body mass index [BMI] 40.0-44.9, adult; E78.5 Hyperlipidemia, unspecified
CPT/HCPCS: 99214

== ENCOUNTER 2023-12-25 10:41 | Outpatient (REF) | payer MEDICARE, SELFPAY ==
[2023-12-25 13:19] LABS: Anion Gap 12 (12-20); Blood Urea Nitrogen 20 mg/dL (9-16); Calcium 10.3 mg/dL (8.4-10.2); Carbon Dioxide 27 mmol/L (22-29); Chloride 106 mmol/L (96-108); Estimated Glomerular Filt Rate > 60; Glucose Random 108 mg/dL (60-115); Potassium 3.9 mmol/L (3.3-5.1); Sodium 141 mmol/L (135-145)
== END 2023-12-25 10:42 | disposition home or self-care (01) ==
LOC: HO.HMGCLDS 10:41
PROVIDERS: PCP Internal Medicine; Visit Provider Internal Medicine
DX: I10 Essential (primary) hypertension (principal)
CPT/HCPCS: 36415; 80048

== ENCOUNTER 2023-12-27 14:04 | Outpatient (AMB) | payer MEDICARE, SELFPAY ==
--- NOTE | 2023-12-27 14:17 | A.OFFPC_ITS ---
Vital Signs 12/27/23 14:30 Height 5 ft Weight 218 lb BMI 42.6 BP 122/74 Blood Pressure Location Rt brachial Position Sitting Pulse 83 Pulse Source Pulse Oximeter Pulse Oximetry (%) 95 Oxygen Delivery Method Room Air Intake Visit Reasons: 6 week follow up Intake Note: Pt is here today for 6 weeks follow up visit on labs. Allergies acetaminophen [From Percocet] Allergy (Verified 12/27/23 14:31) Itching, swelling of the eyelids oxycodone [From Percocet] Allergy (Verified 12/27/23 14:31) Itching, swelling of the eyelids bees Allergy (Uncoded 12/27/23 14:31) itching Medication List - Last Reconciled 12/27/23 by Queta Ambriz MD albuterol sulfate 90 mcg/actuation 2 puffs inhalation Q6H PRN amlodipine-valsartan 5-160 mg 1 tab PO DAILY aspirin (Adult Aspirin Regimen) 81 mg PO DAILY ibuprofen 800 mg PO .qd isosorbide mononitrate ER 30 mg PO DAILY Levoxyl (levothyroxine) 137 mcg PO DAILY NS Tobacco use date assessed: 12/27/23 Dental Screening Dental Screen Date: 11/15/23 HPI 6 week follow up HPI Details Pt presents for f/u HTN, hypothyroidism. Patient reports not feeling well since she decreased the dose of levothyroxine from 150 to 137 mcg. She reports feeling tired and gaining weight. Patient complains of chronic left knee pain and stiffness getting worse. She was diagnosed with advanced osteoarthritis in the past and surgery was recommended but patient decided against. She would like to be evaluated for left knee arthroplasty. [facility] Medical History (Updated 12/27/23 @ 15:12 by Queta Ambriz MD) Restrictive lung disease Morbid obesity Surgical History History of surgery of uterus History of shoulder surgery Hx of total knee replacement Hx of cholecystectomy Family History Father No problems noted. Mother Breast cancer Lung cancer Sister Breast cancer Social History Housing: House Patient Tobacco Use Status: Former Tobacco user (30 years ago) e-Cigarette/Vaping Use: Never Used Current occupational status: retired Cognitive needs: No Hearing needs: No Vision needs: Yes Questionnaire PHQ-9 Over the last 2 weeks, how often have you been bothered by any of the following problems? 1. Little interest or pleasure in doing things: not at all 2. Feeling down, depressed, or hopeless: several days 3. Trouble falling or staying asleep, or sleeping too much: not at all 4. Feeling tired or having little energy: several days 5. Poor appetite or overeating: not at all 6. Feeling bad about yourself - or that you are a failure or have let yourself or your family down: several days 7. Trouble concentrating on things, such as reading the newspaper or watching television: not at all 8. Moving or speaking so slowly that other people could have noticed. Or the opposite - being so fidgety or restless that you have been moving around a lot more than usual: not at all 9. Thoughts that you would be better off or of hurting yourself in some way: not at all Total score: 3 Depression Screening Interpretation: Negative Depression Screening Done: Yes Source: Developed by Drs. Kulwinder Carcamo, Modesta Capellan, Kory Robert and colleagues, with an educational clara from [employer]. Thrive Questionnaire Date Thrive assessed: 12/27/23 I am a: Patient What is your living situation today?: I have a steady place to live Within the past 12 months, did the food you bought not last and you didn't have the money to get more?: Never true Within the past 12 months, did you worry whether your food would run out before you got money to buy more?: Never true Do you have trouble paying for medicines?: No Do you have trouble getting transportation to medical appointments?: No Do you have trouble paying your heating and electricity bill?: No Do you have trouble taking care of your child, family member or friend?: No Do you have trouble with day-to-day activities such as bathing, preparing meals, shopping, managing finances, etc.?: No Are you currently unemployed and looking for a job?: No Are you interested in more education?: No Please select the resources that you would like help with: None THRIVE Score: 0 ZACH-7 AMB Questionnaire ZACH-7 Date ZACH - 7 assessed: 12/27/23 Feeling nervous, anxious, or on edge: 0 = Not at all Not being able to stop or control worryin = Not at all Worrying too much about different things: 0 = Not at all Trouble relaxin = Not at all Being so restless that it is hard to sit still: 0 = Not at all Becoming easily annoyed or irritable: 0 = Not at all Feeling afraid as if something awful might happen: 0 = Not at all Total ZACH-7 score (0-4 normal; 5-9 mild; 10-14 moderate; 15-21 severe): 0 Source: Developed by Drs. Kulwinder Carcamo, Modesta Capellan, Kory Robert and colleagues, with an educational clara from [employer]. Review of Systems Const All systems reviewed & are unremarkable except as noted in HPI and below ENT Reports no additional complaints Card Reports no additional complaints Resp Reports no additional complaints GI Reports no additional complaints Physical exam (Primary Care) Vital Signs: Last Vital Signs Pulse 83 12/27/23 14:30 BP 122/74 12/27/23 14:30 Pulse Ox 95 12/27/23 14:30 Oxygen Delivery Method Room Air 12/27/23 14:30 BMI result Body Mass Index 42.6 Tobacco/Smoking Status: Tobacco use Status Tobacco use date assessed 12/27/23 12/27/23 14:40 Patient Tobacco Use Status Former Tobacco user (30 12/27/23 14:17 years ago) e-Cigarette/Vaping Use Never Used 12/27/23 14:17 PHQ-9: PHQ-9 Score PHQ-9: Total score 3 12/27/23 14:40 Depression Screening Interpretation: Negative Thrive Assessment: Date of Thrive Assessment Date Thrive assessed 12/27/23 12/27/23 14:40 Const General: no acute distress HENMT Throat: Yes posterior oropharynx normal Neck Neck: Yes supple Resp Effort & Inspection: normal respiratory effort Auscultation: clear to auscultation bilaterally Cardio Rhythm: regular rhythm Heart sounds: S1 normal heart sound present and S2 normal heart sound present Extrem Other: Decreased range of motion and crepitus of the left knee Assessment and Plan Assessment & Plan (1) Hypothyroid: Code(s): E03.9 - Hypothyroidism, unspecified Plan: Check TSH level if it is borderline elevated patient will restart high dose of levothyroxine (2) Hyperglycemia: Code(s): R73.9 - Hyperglycemia, unspecified Plan: Check A1c continue ADA diet increase exercise and weight loss (3) Knee osteoarthritis: Comment: left Code(s): M17.9 - Osteoarthritis of knee, unspecified Plan: Referred to ortho (4) HTN (hypertension): Code(s): I10 - Essential (primary) hypertension Plan: Continue current medication Orders: Orders Hemoglobin A1c Today R73.9 - Hyperglycemia, unspecified Vitamin B12 and Folate Today R53.83 - Other fatigue TSH reflex Free T4 Today E03.9 - Hypothyroidism, unspecified Referrals Orthopedics Referral M17.9 - Osteoarthritis of knee, unspecified Coding Level of Care Code Est Pt Level 4 (04316) Diagnoses Hypothyroid E03.9 Hyperglycemia R73.9 Knee osteoarthritis M17.9 HTN (hypertension) I10
[2023-12-27 14:30] VITALS: BP 122/74; PULSE 83; O2SAT 95; BMI 42.6
== END 2023-12-27 15:19 | disposition home or self-care (01) ==
PROVIDERS: PCP Internal Medicine; Visit Provider Internal Medicine
DX: E03.9 Hypothyroidism, unspecified (principal); R73.9 Hyperglycemia, unspecified; M17.9 Osteoarthritis of knee, unspecified; I10 Essential (primary) hypertension
CPT/HCPCS: 99214

== ENCOUNTER 2023-12-28 09:10 | Outpatient (REF) | payer MEDICARE, MEDICAID, SELFPAY ==
[2023-12-28 13:28] LABS: Estimated Average Glucose 105 mg/dL; Hemoglobin A1C 121.3286 umol/L; Hemoglobin A1c % 5.3 % (<6.0)
[2023-12-28 13:57] LABS: TSH reflex Free T4 0.03 uIU/mL (0.32-4.0)
[2023-12-28 14:12] LABS: Folate 8.9 ng/mL (> or = 4.0); Vitamin B12 566 pg/mL (200-900)
[2023-12-28 15:00] LABS: Free T4 (Free Thyroxine) 1.38 ng/dL (0.71-1.85)
== END 2023-12-28 09:11 | disposition home or self-care (01) ==
LOC: HO.HMGCLDS 09:10
PROVIDERS: PCP Internal Medicine; Visit Provider Internal Medicine
DX: R73.9 Hyperglycemia, unspecified (principal); R53.83 Other fatigue; E03.9 Hypothyroidism, unspecified
CPT/HCPCS: 36415; 82607; 82746; 83036; 84439; 84443

== ENCOUNTER 2024-01-08 13:28 | Outpatient (AMB) | payer MEDICARE, SELFPAY ==
[2024-01-08 13:35] VITALS: BP 142/70; PULSE 95; O2SAT 93; BMI 42.6
--- NOTE | 2024-01-08 13:35 | A.OFFVIS_ITS ---
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 Allergies acetaminophen [From Percocet] Allergy (Verified 01/08/24 13:39) Itching, swelling of the eyelids oxycodone [From Percocet] Allergy (Verified 01/08/24 13:39) Itching, swelling of the eyelids bees Allergy (Uncoded 01/08/24 13:39) itching Medication List - Last Reconciled 01/08/24 by Jesus Starr MD albuterol sulfate 90 mcg/actuation 2 puffs inhalation Q6H PRN amlodipine-valsartan 5-160 mg 1 tab PO DAILY aspirin (Adult Aspirin Regimen) 81 mg PO DAILY ibuprofen 800 mg PO .qd isosorbide mononitrate ER 30 mg PO DAILY Levoxyl (levothyroxine) 137 mcg PO DAILY NS Do you need a note to return to daycare/school/sports/work: No HPI HPI Obstructive sleep apnea: Details: Eli is 78 years old very pleasant female with morbid obesity. She does have diagnosis of obstructive sleep apnea but gave up on using the CPAP. She has nocturnal hypoxemia but could not get O2 through the insurance. She does use oxygen at night via POC of her . She states that with the use of oxygen she sleeps fairly good. During the daytime she has no specific problem. She has very little cough does not complain of any shortness of breath on walking and does not have any wheezing attacks. Pulmonary function test performed in August 2023, again reviewed with her and it was essentially normal there was no evidence of obstructive or restrictive lung disorder. [facility] Medical History Restrictive lung disease Morbid obesity Surgical History History of surgery of uterus History of shoulder surgery Hx of total knee replacement Hx of cholecystectomy Family History Father No problems noted. Mother Breast cancer Lung cancer Sister Breast cancer Social History Housing: House Patient Tobacco Use Status: Former Tobacco user (30 years ago) e-Cigarette/Vaping Use: Never Used Current occupational status: retired Cognitive needs: No Hearing needs: No Vision needs: Yes Review of Systems Const All systems reviewed & are unremarkable except as noted in HPI and below Eyes Reports no additional complaints ENT Reports no additional complaints and Denies nasal obstruction (Has the some kind of blockage of the right nostril, chronically ) Card Denies chest pain, Denies irregular heart rhythm, Denies leg edema and Reports dyspnea on exertion (Mild to moderate) Resp Denies cough, Reports dyspnea on exertion (Mild to moderate) and Denies wheezing GI Reports no additional complaints Reports no additional complaints Musc Reports arthralgias (Knees and shoulders) Skin/Breast Reports system reviewed and no additional complaints, except as documented Neuro Reports no additional complaints Psych Reports no additional complaints Endo Reports other (Hypothyroidism being treated with med) Lorenzo/Lymph Reports no additional complaints Aller/Immun Reports no additional complaints and Denies wheezing Physical Exam Vital Signs: Last Vital Signs Pulse 95 01/08/24 13:35 BP 142/70 H 01/08/24 13:35 Pulse Ox 93 01/08/24 13:35 Oxygen Delivery Method Room Air 01/08/24 13:35 BMI result Body Mass Index 42.6 Patient is grossly obese, with a round face. Const General: comfortable, no acute distress, alert and awake Orientation/consciousness: patient oriented x3 HEENT Head: Yes normal to inspection General nose exam: No nasal polyps present, mucous membranes and turbinates abnormal (There is moderate hypertrophy of the middle turbinate on the right side) and No nasal discharge present Face and sinus: Yes sinuses nontender Mouth: oropharynx normal Throat: Yes posterior oropharynx normal Eyes General: appearance normal, both eyes and all related structures Neck Neck: Yes normal visual inspection, Yes no lymphadenopathy, Yes trachea midline and Yes no JVD Thyroid: Thyroid normal Chest Chest palpation & inspection: normal inspection of the chest, normal palpation of entire chest wall and no tenderness Resp Other: Percussion note not perceptible because of thick chest wall. Breath sounds are as moderately distant. But no wheezes rhonchi or crepitations are heard. Cardio Palpation: normal PMI Rate: regular rate Rhythm: regular rhythm Heart sounds: no gallops and no murmurs GI Palpation (GI): Soft to palpation, nontender, No hepatosplenomegaly present and no masses Auscultation: normal bowel sounds Back/Spine/Pelvis Thoracic/Lumbar Spine: thoracic and lumbar spine normal to inspection and thoraco-lumbar ROM limited Skin General skin exam: no rashes or lesions noted Neuro General: patient oriented x3 and no focal motor deficits Cranial nerves: Yes CN's II-XII intact bilaterally Extrem General: Yes normal to inspection, Yes no clubbing, cyanosis or edema and Yes no calf tenderness Psych Appearance: grossly normal and well kempt Speech and movement: Normal speech and movement present Assessment & Plan Assessment & Plan (1) Morbid obesity: Comment: BMI= 42.6 , PATIENT IS AWARE OF BEING OVERWEIGHT, SHE IS NOT ABLE TO LOSE MUCH WEIGHT. Code(s): E66.01 - Morbid (severe) obesity due to excess calories Category: Medical Plan: Advise that she should lose even if she can but 1 lb per month. And make sure not to gain any weight. (2) Sleep apnea: Comment: PATIENT DOES HAVE HISTORY OF SLEEP APNEA DOCUMENTED AFTER HER KNEE SURGERY IN 2016, AND SUBSEQUENTLY WITH HER SLEEP STUDY. USED CPAP AND O2 AT NIGHT BETWEEN 2015 TO 2019, WHEN SHE STOPPED USING AND RETURNED THE CPAP WELL OXYGEN EQUIPMENT. PATIENT CLAIMS THAT SHE DOES SLEEP FAIRLY GOOD, BUT NOW MORE RECENTLY HER SLEEP IS DITURBED , AND SHE FEELS TIRED DURING DAY TIME . SHE IS REQUESTING IF SHE CAN HAVE O2 TO USE AT NIGHT SHE COULD NOT QUALIFY FOR HAVING OXYGEN AT NIGHT, ON BASIS OF THE 6 MINUTES WALK. THE FAMILY HAD BUT A POC, FOR USE OF HER . HE USES THE STATIONARY CONCENTRATOR AT NIGHT AND SHE IS USING HIS POC AT NIGHTTIME. SHE STATES THAT WITH THE USE OF OXYGEN SHE IS SLEEPING BETTER. Code(s): G47.30 - Sleep apnea, unspecified Category: Medical Plan: PATIENT NOT USING THE CPAP, AND DOES NOT WANT TO CONSIDER USING IT IN FUTURE, (3) Nocturnal hypoxia: Comment: Used supplemental O2, Pt has not been seeing pulmonology because of insurance . Finally she agreed to have overnight oximetry recording which has confirmed that her O2 sat was below 88% for 36 minutes. Code(s): G47.34 - Idiopathic sleep related nonobstructive alveolar hypoventilation Category: Medical Plan: ADVISE THAT SHE CAN CONTINUE TO USE THE POC, WITH O2 2 L/MINUTE AT NIGHTTIME Coding Level of Care Code Est Pt Level 3 (95903) Diagnoses Morbid obesity E66.01 Sleep apnea G47.30 Nocturnal hypoxia G47.34
== END 2024-01-08 13:54 | disposition home or self-care (01) ==
PROVIDERS: PCP Internal Medicine; Visit Provider Internal Medicine
DX: E66.01 Morbid (severe) obesity due to excess calories (principal); G47.30 Sleep apnea, unspecified; G47.34 Idiopathic sleep related nonobstructive alveolar hypoventilation
CPT/HCPCS: 99213

== ENCOUNTER → 2024-01-08 13:28 | Outpatient (BNVA) | payer MEDICARE, SELFPAY | PROVIDERS: PCP Internal Medicine; Visit Provider Internal Medicine | DX: E66.01 Morbid (severe) obesity due to excess calories (principal); Z68.41 Body mass index [BMI] 40.0-44.9, adult; G47.34 Idiopathic sleep related nonobstructive alveolar hypoventilation; G47.30 Sleep apnea, unspecified | CPT/HCPCS: 99212 ==

== ENCOUNTER 2024-01-31 08:11 | Outpatient (REF) | payer MEDICARE, SELFPAY ==
--- NOTE | ~2024-01-31 | XR_ITS ---
EXAMINATION: XR KNEE, LEFT CLINICAL INFORMATION: Left knee pain COMPARISON: None available. TECHNIQUE: Three views of the left knee, frontal x-ray of bilateral knees. FINDINGS: BONES: Bony structures are intact. Prominent osteophyte is seen in left medial tibial plateau. Small osteophyte is seen in superior left patella articular border. There is no focal bone destruction or periosteal reaction seen. JOINTS: There is normal alignment of the right total knee arthroplasty prostheses on the frontal view. Alignment of joints is normal. There is complete loss of medial compartment left knee joint space. SOFT TISSUE: Left suprapatellar fat pad shows increase in density. No radiopaque foreign body or abnormal air collection is seen. XR/XR knee LT 3V IMPRESSION: 1. Severe medial compartment left tibiofemoral joint and mild left patellofemoral joint osteoarthritis. 2. Left knee effusion is present. 3. No fracture or dislocation or signs of osteomyelitis are found. 4. Status post right total knee arthroplasty. Electronically signed by: Prabhu Alston MD 02/15/2024 03:20 PM EDT
== END 2024-01-31 08:12 | disposition home or self-care (01) ==
LOC: HO.HOSX 08:11
PROVIDERS: Visit Provider Orthopaedic Surgery
DX: M25.562 Pain in left knee (principal); M17.12 Unilateral primary osteoarthritis, left knee; M25.462 Effusion, left knee; Z96.651 Presence of right artificial knee joint
CPT/HCPCS: 73562; 99202

== ENCOUNTER 2024-01-31 09:58 | Outpatient (AMB) | payer MEDICARE, MEDICAID, SELFPAY ==
--- NOTE | 2024-01-31 10:12 | MHC.OFFVIS ---
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 Patient reports that this is chronic and worsening left knee pain, she has previously seen an Orthopedic Surgeon who recommended TKA but patient was not ready for surgical intervention at that time. Now she continues to have pain and injections have not been helpful. She cannot walk comfortably at all and has very poor ambulatory capacity. She can only walk for a few minutes wihout pain. She uses a cane. She has a sucessful right TKA several years ago. [facility] Medical History Restrictive lung disease Morbid obesity Surgical History History of surgery of uterus History of shoulder surgery Hx of total knee replacement Hx of cholecystectomy Family History Father No problems noted. Mother Breast cancer Lung cancer Sister Breast cancer Social History Housing: House Patient Tobacco Use Status: Former Tobacco user e-Cigarette/Vaping Use: Never Used Current occupational status: retired Cognitive needs: No Hearing needs: No Vision needs: Yes Physical Exam Vital Signs: BMI result Body Mass Index 42.6 Extrem Other: Well healed right anterior kene incision Left knee with vaurs alignment and TTP medial comaprtment Results Reviewed Results Reviewed: I personally reviewed relevant radiographs. Severe left knee medial compartment OA Assessment & Plan Assessment & Plan (1) Knee osteoarthritis: Comment: left Code(s): M17.9 - Osteoarthritis of knee, unspecified Category: Medical Plan: This is a 78-year-old woman with lose severe left knee osteoarthritis. She had a very successful right knee replacement. She is remarkably active and feels limited by her inability to ambulate more than a few blocks. She has had multiple injections in the past which helped briefly and does not want to continue this. I recommend left knee arthroplasty. She understands the procedure but I did discuss it with her again nevertheless.I discussed the risks benefits and alternatives including but not limited to the risk of pain, infection, stiffness, need for further surgery as well as potential medical complications such as blood clots, pulmonary embolism and cardiac complications. She expressed understanding and will proceed forward accordingly. Orders: Orders XR knee LT 3V 01/31/24 M25.562 - Pain in left knee Coding Level of Care Code New Pt Level 4 (70807) Diagnoses Knee osteoarthritis M17.9
[2024-01-31 10:13] VITALS: BMI 42.6
== END 2024-01-31 10:50 | disposition home or self-care (01) ==
PROVIDERS: PCP Internal Medicine; Visit Provider Orthopaedic Surgery
DX: M17.12 Unilateral primary osteoarthritis, left knee (principal)
CPT/HCPCS: 99204

== ENCOUNTER 2024-02-12 11:00 | Outpatient (REF) | payer MEDICARE, MEDICAID, SELFPAY ==
[2024-02-12 14:01] LABS: Alanine Aminotransferase 24 U/L (0-31); Alkaline Phosphatase 65 U/L (39-117); Anion Gap 13 (12-20); Aspartate Amino Transferase 22 U/L (5-31); Bilirubin Total 0.6 mg/dL (0.0-1.0); Blood Urea Nitrogen 24 mg/dL (9-16); Calcium 10.4 mg/dL (8.4-10.2); Carbon Dioxide 26 mmol/L (22-29); Chloride 104 mmol/L (96-108); Estimated Glomerular Filt Rate > 60; Glucose Random 129 mg/dL (60-115); Potassium 3.4 mmol/L (3.3-5.1); Sodium 140 mmol/L (135-145); Total Protein 7.1 g/dL (6.5-8.0)
== END 2024-02-12 11:01 | disposition home or self-care (01) ==
LOC: HO.HMGCLDS 11:00
PROVIDERS: PCP Internal Medicine; Referring Provider Nurse Practitioner; Visit Provider Internal Medicine
DX: R00.2 Palpitations (principal)
CPT/HCPCS: 36415; 80053

== ENCOUNTER → 2024-02-26 08:54 | Outpatient (BNVA) | payer MEDICARE, MEDICAID, SELFPAY | PROVIDERS: PCP Internal Medicine | DX: Z01.818 Encounter for other preprocedural examination (principal) ==

== ENCOUNTER 2024-03-06 08:46 | Outpatient (REF) | payer MEDICARE, MEDICAID, SELFPAY ==
[2024-03-07 17:18] LABS: Triiodothyronine T3 Free 3.2 pg/mL (2.3-4.2)
== END 2024-03-06 08:47 | disposition home or self-care (01) ==
LOC: HO.HMGCLDS 08:46
PROVIDERS: PCP Internal Medicine; Visit Provider Internal Medicine
DX: E03.9 Hypothyroidism, unspecified (principal)
CPT/HCPCS: 36415; 84439; 84443; 84481

== ENCOUNTER 2024-03-18 13:49 | Outpatient (AMB) | payer MEDICARE, MEDICAID, SELFPAY ==
[2024-03-18 13:51] VITALS: BP 128/70; PULSE 76; O2SAT 98; BMI 42.6
--- NOTE | 2024-03-18 13:51 | MHC.PC.OV ---
Vital Signs 03/18/24 13:51 Height 5 ft Weight 218 lb BMI 42.6 BP 128/70 Blood Pressure Location Lt brachial Position Sitting Pulse 76 Pulse Source Pulse Oximeter Pulse Oximetry (%) 98 Oxygen Delivery Method Room Air Intake Visit Reasons: Pre op Left TKA Dr. Yu 04/01/24 Intake Note: Pt is here today for a pre op visit. Pt is having L total knee surgery on 04/01/[address] Yu. Pt had cardiac clearance with her Certified Dialysis Technician today. Allergies acetaminophen [From Percocet] Allergy (Verified 02/26/24 09:22) Itching, swelling of the eyelids oxycodone [From Percocet] Allergy (Verified 02/26/24 09:22) Itching, swelling of the eyelids bees Allergy (Uncoded 02/26/24 09:22) itching Tobacco use date assessed: 03/18/24 Fall risk assessment: No Falls in past year Last assessed Fall Risk: 03/18/24 Dental Screening Dental Screen Date: 03/18/24 Did you have a dental visit in the last 12 months?: Yes Did you have a dental problem in the last 6 months where you did not have access to dental care?: No Was dental information given to patient?: Patient has dentist HPI Pre op Left TKA Dr. Yu 04/01/24 HPI Details Pt presents for preop for L knee arthroplasty. Hypertension is controlled on current medications. Patient had an appointment with [facility] today and is scheduled for nuclear stress test. She denies chest pain shortness of breath palpitations, but is now physically active due to morbid obesity and severe knee osteoarthritis. Patient uses her 's supplemental O2 occasionally but not every night. For obstructive sleep apnea she has a follow-up appointment with pulmonology this week. Patient has not started a new lower dose of levothyroxine because is concerned about side effect before the surgery. [facility] Medical History Restrictive lung disease Morbid obesity Surgical History History of surgery of uterus History of shoulder surgery Hx of total knee replacement Hx of cholecystectomy Family History Father No problems noted. Mother Breast cancer Lung cancer Sister Breast cancer Social History Housing: House Patient Tobacco Use Status: Former Tobacco user e-Cigarette/Vaping Use: Never Used service: No Current occupational status: retired Cognitive needs: No Hearing needs: No Vision needs: Yes Questionnaire Thrive Questionnaire Date Thrive assessed: 12/27/23 AUDIT C Alcohol Use Questionnaire (AUDIT-C) 1. How often do you have a drink containing alcohol?: Never 3. How often do you have six or more drinks on one occasion?: Never Total Score: 0 ZACH-7 AMB Questionnaire ZACH-7 Date ZACH - 7 assessed: 12/27/23 Source: Developed by Drs. Kulwinder Carcamo, Modesta Capellan, Kory Robert and colleagues, with an educational clara from [employer]. Review of Systems Const All systems reviewed & are unremarkable except as noted in HPI and below Eyes Reports no additional complaints ENT Reports no additional complaints Card Reports no additional complaints Resp Reports no additional complaints GI Reports no additional complaints Reports no additional complaints Physical exam (Primary Care) Vital Signs: Last Vital Signs Pulse 76 03/18/24 13:51 BP 128/70 03/18/24 13:51 Pulse Ox 98 03/18/24 13:51 Oxygen Delivery Method Room Air 03/18/24 13:51 BMI result Body Mass Index 42.6 Tobacco/Smoking Status: Tobacco use Status Tobacco use date assessed 03/18/24 03/18/24 14:01 Patient Tobacco Use Status Former Tobacco user 03/18/24 13:54 e-Cigarette/Vaping Use Never Used 03/18/24 13:54 Thrive Assessment: Date of Thrive Assessment Date Thrive assessed 12/27/23 03/18/24 13:54 Const General: no acute distress HENMT Mouth: Normal oral and palatal mucosa present Eyes General: appearance normal, both eyes and all related structures Neck Neck: Yes supple Resp Effort & Inspection: normal respiratory effort Auscultation: clear to auscultation bilaterally Cardio Rhythm: regular rhythm Heart sounds: S1 normal heart sound present and S2 normal heart sound present GI Inspection: Yes normal to inspection Palpation (GI): Soft to palpation Percussion: Yes normal to percussion Auscultation: normal bowel sounds Coding Level of Care Code Est Pt Level 4 (61898) Diagnoses Sleep apnea G47.30 Osteoarthritis of left knee M17.12 Hypothyroid E03.9 HTN (hypertension) I10 Assessment & Plan Assessment & Plan (1) Sleep apnea: Comment: PATIENT DOES HAVE HISTORY OF SLEEP APNEA DOCUMENTED AFTER HER KNEE SURGERY IN 2016, AND SUBSEQUENTLY WITH HER SLEEP STUDY. USED CPAP AND O2 AT NIGHT BETWEEN 2015 TO 2019, WHEN SHE STOPPED USING AND RETURNED THE CPAP WELL OXYGEN EQUIPMENT. PATIENT CLAIMS THAT SHE DOES SLEEP FAIRLY GOOD, BUT NOW MORE RECENTLY HER SLEEP IS DITURBED , AND SHE FEELS TIRED DURING DAY TIME . SHE IS REQUESTING IF SHE CAN HAVE O2 TO USE AT NIGHT SHE COULD NOT QUALIFY FOR HAVING OXYGEN AT NIGHT, ON BASIS OF THE 6 MINUTES WALK. THE FAMILY HAD BUT A POC, FOR USE OF HER . HE USES THE STATIONARY CONCENTRATOR AT NIGHT AND SHE IS USING HIS POC AT NIGHTTIME. SHE STATES THAT WITH THE USE OF OXYGEN SHE IS SLEEPING BETTER. Code(s): G47.30 - Sleep apnea, unspecified Category: Medical Plan: Follow-up with pulmonology (2) Osteoarthritis of left knee: Code(s): M17.12 - Unilateral primary osteoarthritis, left knee Category: Medical Plan: Patient is medically cleared for knee arthroplasty surgeon (3) Hypothyroid: Code(s): E03.9 - Hypothyroidism, unspecified Category: Medical Plan: She will start a low dose of levothyroxine after the surgery and have repeat TSH level after 2 months (4) HTN (hypertension): Code(s): I10 - Essential (primary) hypertension Category: Medical Plan: Continue current medications
== END 2024-03-18 14:37 | disposition home or self-care (01) ==
PROVIDERS: PCP Internal Medicine; Visit Provider Internal Medicine
DX: G47.30 Sleep apnea, unspecified (principal); M17.12 Unilateral primary osteoarthritis, left knee; E03.9 Hypothyroidism, unspecified; I10 Essential (primary) hypertension

== ENCOUNTER → 2024-03-18 13:49 | Outpatient (BNVA) | payer MEDICARE, MEDICAID, SELFPAY | PROVIDERS: PCP Internal Medicine; Visit Provider Internal Medicine | DX: G47.30 Sleep apnea, unspecified (principal); M17.12 Unilateral primary osteoarthritis, left knee; E03.9 Hypothyroidism, unspecified; I10 Essential (primary) hypertension | CPT/HCPCS: 99212 ==

== ENCOUNTER 2024-03-20 13:29 | Outpatient (AMB) | payer MEDICARE, MEDICAID, SELFPAY ==
[2024-03-20 13:37] VITALS: BP 148/82; PULSE 71; O2SAT 97; BMI 42.6
--- NOTE | 2024-03-20 13:37 | MHC.OFFVIS ---
Vital Signs 03/20/24 13:37 Height 5 ft Weight 218 lb BMI 42.6 BP 148/82 H Blood Pressure Location Lt brachial Position Sitting Pulse 71 Pulse Source Pulse Oximeter Pulse Oximetry (%) 97 Oxygen Delivery Method Room Air Intake Visit Reasons: left tka Intake Note: pt is here for pre-op clearance for total left knee replacement on 04/01 at [facility] Required: No Allergies oxycodone [From Percocet] Allergy (Severe, Verified 03/20/24 13:58) Itching, swelling of the eyelids bees Allergy (Severe, Uncoded 03/20/24 13:58) Anaphylaxis Medication List - Last Reconciled 03/20/24 by Jesus Starr MD albuterol sulfate 90 mcg/actuation 2 puffs inhalation Q6H PRN amlodipine-valsartan 5-160 mg 1 tab PO DAILY aspirin (Adult Aspirin Regimen) 81 mg PO DAILY ibuprofen 800 mg PO DAILY PRN isosorbide mononitrate ER 30 mg PO DAILY levothyroxine (Levoxyl) 125 mcg PO DAILY walker Folding Front wheeled walker HPI HPI left tka: Details: SHAMIKA IS 78 YEARS OLD FEMALE, WHO WILL UNDERGO LEFT KNEE REPLACEMENT SURGERY ON 04/01. SHE HAS BEEN REFERRED FOR PREOP EVALUATION AND PULMONARY CLEARANCE. SHE IS GROSSLY OBESE, AND DOES HAVE DIAGNOSIS OF OBSTRUCTIVE SLEEP APNEA, BY IS SLEEP STUDY IN 2016. SHE DID USE CPAP AT NIGHT UP UNTIL 2019 AND THEN STOPPED USING IT. SHE CLAIMS THAT SHE SLEEPS GOOD WITHOUT THE CPAP, SHE DENIES. ANY DAYTIME SLEEPINESS SHE WAS FOUND TO HAVE NOCTURNAL HYPOXEMIA, AND ADVISED TO USE O2 2 L/MINUTE. SHE HAS USED O2 ONLY OFF AND ON, WITH HER 'S POC, SHE DENIES COUGH WHEEZING OR SHORTNESS OF BREATH AT REST. HER WALKING IS SLOW SO SHE DOES NOT GET SHORT OF BREATH WHEN WALKING. 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 SHE HAS ALBUTEROL TO USE P.R.N. BUT HARDLY NEEDS TO USE IT. [facility] Medical History Macular degeneration of left eye Walker as ambulation aid Osteoarthritis TENZIN (obstructive sleep apnea) Restrictive lung disease Hypothyroid Restrictive lung disease Morbid obesity Surgical History Hx of basal cell carcinoma excision Hx laparoscopic cholecystectomy Hx of hysterectomy History of surgery of uterus History of shoulder surgery Hx of total knee replacement Hx of cholecystectomy Family History Father No problems noted. Mother Breast cancer Lung cancer Sister Breast cancer Social History Household Members: Spouse Caregiver staying overnight: No Housing: House Are you a primary healthcare social worker to a significant other at home: No Do you presently have visiting nurse or other home services: No 75 years or older and lives alone: No Patient Tobacco Use Status: Former Tobacco user Tobacco use type: Cigarette e-Cigarette/Vaping Use: Never Used service: No Current occupational status: retired Cognitive needs: No Hearing needs: No Vision needs: Yes Review of Systems Const All systems reviewed & are unremarkable except as noted in HPI and below Eyes Reports no additional complaints ENT Reports no additional complaints and Denies nasal obstruction (Has the some kind of blockage of the right nostril, chronically ) Card Denies chest pain, Denies irregular heart rhythm, Denies leg edema and Reports dyspnea on exertion (Mild to moderate) Resp Denies cough, Reports dyspnea on exertion (Mild to moderate) and Denies wheezing GI Reports no additional complaints Reports no additional complaints Musc Reports arthralgias (Knees and shoulders) Skin/Breast Reports system reviewed and no additional complaints, except as documented Neuro Reports no additional complaints Psych Reports no additional complaints Endo Reports other (Hypothyroidism being treated with med) Lorenzo/Lymph Reports no additional complaints Aller/Immun Reports no additional complaints and Denies wheezing Physical Exam Vital Signs: Last Vital Signs Pulse 71 03/20/24 13:37 BP 148/82 H 03/20/24 13:37 Pulse Ox 97 03/20/24 13:37 Oxygen Delivery Method Room Air 03/20/24 13:37 BMI result Body Mass Index 42.6 Patient is grossly obese, with a round face. Const General: comfortable, no acute distress, alert and awake Orientation/consciousness: patient oriented x3 HEENT Head: Yes normal to inspection General nose exam: No nasal polyps present, mucous membranes and turbinates abnormal (There is moderate hypertrophy of the middle turbinate on the right side) and No nasal discharge present Face and sinus: Yes sinuses nontender Mouth: oropharynx normal Throat: Yes posterior oropharynx normal Eyes General: appearance normal, both eyes and all related structures Neck Neck: Yes normal visual inspection, Yes no lymphadenopathy, Yes trachea midline and Yes no JVD Thyroid: Thyroid normal Chest Chest palpation & inspection: normal inspection of the chest, normal palpation of entire chest wall and no tenderness Resp Other: Percussion note not perceptible because of thick chest wall. Breath sounds are as moderately distant especially over the bases . But no wheezes rhonchi or crepitations are heard. Cardio Palpation: normal PMI Rate: regular rate Rhythm: regular rhythm Heart sounds: no gallops and no murmurs GI Palpation (GI): Soft to palpation, nontender, No hepatosplenomegaly present and no masses Auscultation: normal bowel sounds Back/Spine/Pelvis Thoracic/Lumbar Spine: thoracic and lumbar spine normal to inspection and thoraco-lumbar ROM limited Skin General skin exam: no rashes or lesions noted Neuro General: patient oriented x3 and no focal motor deficits Cranial nerves: Yes CN's II-XII intact bilaterally Extrem General: Yes normal to inspection, Yes no clubbing, cyanosis or edema and Yes no calf tenderness Psych Appearance: grossly normal and well kempt Speech and movement: Normal speech and movement present Assessment & Plan Assessment & Plan (1) Morbid obesity: Comment: BMI= 42.6 , PATIENT IS AWARE OF BEING OVERWEIGHT, SHE IS NOT ABLE TO LOSE MUCH WEIGHT. Code(s): E66.01 - Morbid (severe) obesity due to excess calories Category: Medical (2) Restrictive lung disease: Comment: BECAUSE OF HER MORBID OBESITY SHE DOES HAVE SIGNIFICANT RESTRICTIVE LUNG DISEASE. BUT DENIES ANY RESPIRATORY ISSUES. SHE HAS USE THE INCENTIVE SPIROMETRY DEVICE IN THE PAST BUT DOES NOT USE IT NOW. Code(s): J98.4 - Other disorders of lung Category: Medical Plan: I ENCOURAGED HER TO START USING THE INCENTIVE SPIROMETRY DEVICE AND DO BREATHING EXERCISES 3 TIMES A DAY, BEFORE THE SURGERY AND THEN CONTINUE AFTER THE SURGERY AT LEAST FOR FEW WEEKS. (3) Sleep apnea: Comment: PATIENT DOES HAVE HISTORY OF SLEEP APNEA DOCUMENTED AFTER HER KNEE SURGERY IN 2016, AND SUBSEQUENTLY WITH HER SLEEP STUDY. USED CPAP AND O2 AT NIGHT BETWEEN 2015 TO 2019, THEN SHE STOPPED USING AND RETURNED THE CPAP WELL OXYGEN EQUIPMENT. PATIENT CLAIMS THAT SHE DOES SLEEP FAIRLY GOOD . SHE DOES HAVE NOCTURNAL HYPOXEMIA, HAS USED O2 2 L/MINUTE IN THE PAST . BUT THEN GAVE BACK HER OXYGEN CONCENTRATOR ALONG WITH THE CPAP DEVICE . SHE WAS RECHECKED WITH OVERNIGHT OXIMETRY RECORDING AND DOES HAVE NOCTURNAL HYPOXEMIA. Code(s): G47.30 - Sleep apnea, unspecified Category: Medical Plan: I ADVISED HER TO USE O2 2 L/MINUTE AT NIGHT AT LEAST FOR 1 WEEK PRIOR TO THE SURGERY AND CONTINUE USING FOR AT LEAST FOR A FEW WEEKS AFTER SURGERY. (4) Nocturnal hypoxia: Comment: Used supplemental O2, Pt has not been seeing pulmonology because of insurance . Finally she agreed to have overnight oximetry recording which has confirmed that her O2 sat was below 88% for 36 minutes. Code(s): G47.34 - Idiopathic sleep related nonobstructive alveolar hypoventilation Category: Medical Plan: PATIENT IS ENCOURAGED TO USE O2 2 L/MINUTE AT NIGHT, NOTED ABOVE UNDER SLEEP APNEA. Plan PRE - OP CLEARANCE * FROM PULMONARY POINT OF VIEW SHE IS FIT TO UNDERGO LEFT KNEE SURGERY. SHE IS ADVISED TO START USING O2 2 L/MINUTE AT NIGHT PRIOR TO SURGERY. SHE HAS ALSO ADVISED TO DO DEEP BREATHING EXERCISES AT LEAST 3 TIMES A DAY , FOR A FEW DAYS BEFORE SURGERY AND CONTINUE POSTOPERATIVELY. Coding Level of Care Code Est Pt Level 3 (83345) Diagnoses Morbid obesity E66.01 Restrictive lung disease J98.4 Sleep apnea G47.30 Nocturnal hypoxia G47.34
== END 2024-03-20 14:00 | disposition home or self-care (01) ==
PROVIDERS: PCP Internal Medicine; Visit Provider Internal Medicine
DX: E66.01 Morbid (severe) obesity due to excess calories (principal); J98.4 Other disorders of lung; G47.30 Sleep apnea, unspecified; G47.34 Idiopathic sleep related nonobstructive alveolar hypoventilation
CPT/HCPCS: 99213

== ENCOUNTER → 2024-03-20 13:29 | Outpatient (BNVA) | payer MEDICARE, MEDICAID, SELFPAY | PROVIDERS: PCP Internal Medicine; Visit Provider Internal Medicine | DX: G47.30 Sleep apnea, unspecified (principal); G47.34 Idiopathic sleep related nonobstructive alveolar hypoventilation; J98.4 Other disorders of lung; E66.01 Morbid (severe) obesity due to excess calories; Z68.41 Body mass index [BMI] 40.0-44.9, adult | CPT/HCPCS: 99212 ==

== ENCOUNTER 2024-03-27 10:50 | Outpatient (REF) | payer MEDICARE, MEDICAID, SELFPAY | END 2024-03-27 10:51 | disposition home or self-care (01) | LOC: HO.HOSX 10:50 | PROVIDERS: Visit Provider Physician Assistant | DX: M25.561 Pain in right knee (principal); M25.562 Pain in left knee; M17.9 Osteoarthritis of knee, unspecified | CPT/HCPCS: 73560; 73562; 99212 ==

== ENCOUNTER 2024-03-27 13:00 | Outpatient (AMB) | payer MEDICARE, MEDICAID, SELFPAY ==
--- NOTE | 2024-03-27 13:09 | A.OFFVIS_ITS ---
Intake Visit Reasons: Pre-Op: L TKA w/NE 04/01/24 Intake Note: Silvia a 78 year old female who presents today for a preoperative visit, LT TKA on 04/01/24 NE. Pain management agreement reviewed and signed. Allergies oxycodone [From Percocet] Allergy (Severe, Verified 03/27/24 13:17) Itching, swelling of the eyelids bees Allergy (Severe, Uncoded 03/27/24 13:17) Anaphylaxis Medication List - Last Reconciled 03/27/24 by Lotus Ayala PA-C albuterol sulfate 90 mcg/actuation 2 puffs inhalation Q6H PRN amlodipine-valsartan 5-160 mg 1 tab PO DAILY aspirin (Adult Aspirin Regimen) 81 mg PO DAILY ibuprofen 800 mg PO DAILY PRN isosorbide mononitrate ER 30 mg PO DAILY levothyroxine (Levoxyl) 125 mcg PO DAILY walker Folding Front wheeled walker HPI Comments Details: Ms Steinberg presents to the office today for preop visit. She is scheduled for left total knee arthroplasty with Dr. Yu. She continues to have ongoing pain and difficulty with ambulation in the left knee, which is affecting her quality of life; therefore, she has elected to move forward with surgery. [facility] Medical History Macular degeneration of left eye Walker as ambulation aid Osteoarthritis TENZIN (obstructive sleep apnea) Restrictive lung disease Hypothyroid Restrictive lung disease Morbid obesity Surgical History Hx of basal cell carcinoma excision Hx laparoscopic cholecystectomy Hx of hysterectomy History of surgery of uterus History of shoulder surgery Hx of total knee replacement Hx of cholecystectomy Family History Father No problems noted. Mother Breast cancer Lung cancer Sister Breast cancer Social History Household Members: Spouse Caregiver staying overnight: No Housing: House Are you a primary adult care manager to a significant other at home: No Do you presently have visiting nurse or other home services: No 75 years or older and lives alone: No Patient Tobacco Use Status: Former Tobacco user Tobacco use type: Cigarette e-Cigarette/Vaping Use: Never Used service: No Current occupational status: retired Cognitive needs: No Hearing needs: No Vision needs: Yes Review of Systems Const All systems reviewed & are unremarkable except as noted in HPI and below Physical Exam Const General: cooperative and no acute distress Orientation/consciousness: patient oriented x3 Neck Neck: Yes normal visual inspection and Yes no lymphadenopathy Resp Effort & Inspection: normal respiratory effort and able to speak in complete sentences Cardio Peripheral pulses: Peripheral pulses 2+ throughout GI Inspection: Yes normal to inspection Palpation (GI): Soft to palpation Skin General skin exam: no rashes or lesions noted Neuro General: patient oriented x3 Extrem Other: Left knee skin intact, no open wounds Left knee with vaurs alignment and TTP medial comaprtment Assessment & Plan Assessment & Plan (1) Knee osteoarthritis: Comment: left Code(s): M17.9 - Osteoarthritis of knee, unspecified Category: Medical Plan I discussed in detail the procedure and what to expect pre and post operatively. We discussed the risks, benefits and alternatives to the surgery as well as the rehabilitation course. The risks; which include, but are not limited to infection, bleeding, nerve injury, ongoing pain, swelling, and stiffness, perioperative risk of injury to bones and soft tissues, and blood clots. I?ve answered all questions and with their understanding they have consented to move forward with Left total knee arthroplasty with Dr. Gigi BRO Vicodin for pain Orders: Orders XR knee LT 3V Today M25.562 - Pain in left knee XR knee RT 1V Today M25.561 - Pain in right knee Patient Instructions: Scribed for Lotus Ayala PA-C, by Ab Espinoza medical equipment technician, on 03/27/2024 at 1:15 PM EST.? I, Lotus Ayala PA-C, have personally reviewed and agree with t0he information entered by the scribe. Coding Level of Care Code Est Pt Level 3 (74880) Complex EM visit Add On G2211 Diagnoses Knee osteoarthritis M17.9
== END 2024-03-27 13:41 | disposition home or self-care (01) ==
PROVIDERS: PCP Internal Medicine; Visit Provider Physician Assistant
DX: M17.9 Osteoarthritis of knee, unspecified (principal)
CPT/HCPCS: 99024

== ENCOUNTER → 2024-04-01 06:48 | Day surgery (SDC) | payer MEDICARE, MEDICAID, SELFPAY ==
[2024-03-20 12:16] VITALS: BP 146/73; PULSE 77; RESP 16; O2SAT 97; BMI 42.6
--- NOTE | 2024-03-20 12:50 | P.CONAN_ITS ---
HPI - Anesthesia Eval Consult details Narrative: 78yo F for Left ?Knee Replacement Total, 04/01/24 Cardiac clear pending - stress test ordered [facility] Pulmo cleared. Rec'd O2 QHS and incentive spirometry leading up surgery PCP optimized No recent illness No CP/SOB with minimal activity TENZIN: no cpap, does not tolerate. Uses O2 on and off. Will use QHS leading up to surgery based on pulmo rec. RLD: Never needs albuterol PMFSH Active Problems Active Problems: All Active Problems Osteoarthritis of left knee (Acute) Fatigue (Acute) Knee osteoarthritis (Acute) Hyperglycemia (Acute) Hyperlipidemia (Acute) Nocturnal hypoxia (Acute) Sleep apnea (Acute) Hypothyroid (Acute) HTN (hypertension) (Acute) Restrictive lung disease (Acute) Morbid obesity (Acute) Past Medical History Medical History Macular degeneration of left eye Walker as ambulation aid Osteoarthritis TENZIN (obstructive sleep apnea) Restrictive lung disease Hypothyroid Restrictive lung disease Morbid obesity Family History Family History Father No problems noted. Mother Breast cancer Lung cancer Sister Breast cancer Family history of problems with anesthesia: No Surgical History Surgical History Hx of basal cell carcinoma excision Hx laparoscopic cholecystectomy Hx of hysterectomy History of surgery of uterus History of shoulder surgery Hx of total knee replacement Hx of cholecystectomy History of Problems with Anesthesia: No (Reports some memory issues following 2016 TKA) Social History Social History Household Members: Spouse Caregiver staying overnight: No Housing: House Are you a primary day care assistant to a significant other at home: No Do you presently have visiting nurse or other home services: No 75 years or older and lives alone: No Patient Tobacco Use Status: Former Tobacco user Tobacco use type: Cigarette e-Cigarette/Vaping Use: Never Used service: No Current occupational status: retired Cognitive needs: No Hearing needs: No Vision needs: Yes Meds Allergies Allergy/AdvReac Type Severity Reaction Status Date / Time oxycodone [From Percocet] Allergy Severe Itching, Verified 03/27/24 13:17 swelling of the eyelids bees Allergy Severe Anaphylaxis Uncoded 03/27/24 13:17 Home Medications ?Medication ?Instructions ?Recorded ?Confirmed ?Last Taken ?Type isosorbide mononitrate 30 mg 30 mg PO DAILY 07/13/22 03/27/24 Unknown History tablet,extended release 24 hr albuterol sulfate 90 mcg/actuation 2 puff inhalation Q6H PRN 03/13/23 03/27/24 Unknown History aerosol inhaler aspirin 81 mg tablet,delayed 81 mg PO DAILY 03/13/23 03/27/24 Unknown History release (Adult Aspirin Regimen) ibuprofen 800 mg tablet 800 mg PO DAILY PRN Pain 03/20/24 03/27/24 Unknown History Exam Height,Weight and Vital Signs: Height 5 ft Weight 98.883 kg Last Vital Signs Pulse 77 03/20/24 12:16 Resp 16 03/20/24 12:16 BP 146/73 H 03/20/24 12:16 Pulse Ox 97 03/20/24 12:16 O2 Del Method Room Air 03/20/24 12:16 Pertinent Lab Results Pertinent Lab Results: Lab Results 03/20/24 03/20/24 03/20/24 Range/Units 12:54 13:16 13:22 WBC 7.2 (4.8-10.8) X10*3/uL RBC 4.62 (4.20-5.50) X10*6/uL Hgb 13.3 (12.0-16.0) g/dl Hct 40.6 (37.0-47.0) % MCV 87.9 (80.0-98.0) fL MCH 28.8 (27.0-33.0) pg MCHC 32.8 (31.0-35.0) g/dl RDW 13.2 (11.0-16.0) % Plt Count 342 (160-400) X10*3/uL MPV 9.9 (9.4-12.3) fL Absolute Nucleated RBC 0.000 (0.0-0.012) X10*3/uL Nucleated RBC % (auto) 0.0 (0.0-0.2) /100WBC Sodium 142 (135-145) mmol/L Potassium 4.7 D (3.3-5.1) mmol/L Chloride 110 H (96-108) mmol/L Carbon Dioxide 26 (22-29) mmol/L Anion Gap 11 L (12-20) BUN 14 (9-16) mg/dL Creatinine 0.67 (0.5-1.4) mg/dL Estim Creat Clear Calc 74.2 Estimated GFR > 60 Random Glucose 105 (60-115) mg/dL Calcium 10.7 H (8.4-10.2) mg/dL Nasal Screen MRSA (PCR) NEGATIVE (Negative) Nasal S. aureus Screen NEGATIVE (Negative) Nasal MRSA/S.aureus Interp SEE NOTE Blood Type O Positive Antibody Screen NEGATIVE Narrative Narrative: EKG 03/2024 NSR @ 84 Cannot r/o anterior infarct Airway Mallampati Class: II TM Dist: >3cm Neck ROM: Full Partial: Upper Heart: RRR Lungs: CTAB Assessment and Plan Assessment Anesthesia Assessment: Anesthesia Plan Discussed and PAT Visit Final Anesthetic Review Family History of Problems with Anesthesia: No History of Problems with Anesthesia: No (Reports some memory issues following 2016 TKA)
[2024-03-20 14:12] LABS: Hematocrit 40.6 % (37.0-47.0); Hemoglobin 13.3 g/dl (12.0-16.0); Mean Corpuscular HGB Conc 32.8 g/dl (31.0-35.0); Mean Corpuscular Hemoglobin 28.8 pg (27.0-33.0); Mean Corpuscular Volume 87.9 fL (80.0-98.0); Mean Platelet Volume 9.9 fL (9.4-12.3); Platelet Count 342 X10*3/uL (160-400); Red Blood Count 4.62 X10*6/uL (4.20-5.50); Red Cell Distribution Width 13.2 % (11.0-16.0); White Blood Count 7.2 X10*3/uL (4.8-10.8)
[2024-03-20 14:39] LABS: Anion Gap 11 (12-20); Blood Urea Nitrogen 14 mg/dL (9-16); Calcium 10.7 mg/dL (8.4-10.2); Carbon Dioxide 26 mmol/L (22-29); Chloride 110 mmol/L (96-108); Creatinine Clr Calc Pharmacy 74.2; Estimated Glomerular Filt Rate > 60; Glucose Random 105 mg/dL (60-115); Potassium 4.7 mmol/L (3.3-5.1); Sodium 142 mmol/L (135-145)
[2024-03-20 15:11] LABS: MRSA Nasal PCR NEGATIVE (Negative); SA Nasal PCR NEGATIVE (Negative)
--- NOTE | 2024-04-01 07:24 | PC.NURSE ---
No cardiology or PCP clearance received from Ortho Office. Gracie Mukherjee, Senior Packaging Engineer notified via [employer]. Office also had not received clearance as of 04/01/24. Per space officer patient to be rescheduled.
== END ==
PROVIDERS: Nurse Practitioner; Physician Assistant; PCP Internal Medicine; Visit Provider Orthopaedic Surgery
DX: M17.12 Unilateral primary osteoarthritis, left knee (principal); Z53.8 Procedure and treatment not carried out for other reasons; G47.33 Obstructive sleep apnea (adult) (pediatric); I10 Essential (primary) hypertension
CPT/HCPCS: 36415; 80048; 85027; 86850; 86900; 86901; 87640; 87641

== ENCOUNTER 2024-04-08 07:50 | Day surgery (SDC) | payer MEDICARE, MEDICAID, SELFPAY ==
--- NOTE | 2024-04-04 12:22 | HO.ANESPROP2 ---
Documented by User: Ifrah Thorpe NP 04/04/24 13:22 HPI - Anesthesia Eval Consult details Narrative: 78yo F for Left ?Knee Replacement Total Cardiac cleared (stress test done) Pulmo cleared. Rec'd O2 QHS and incentive spirometry leading up surgery PCP optimized No recent illness No CP/SOB with minimal activity TENZIN: no cpap, does not tolerate. Uses O2 on and off. Will use QHS leading up to surgery based on pulmo rec. RLD: Never needs albuterol PMFSH Active Problems Active Problems: All Active Problems (Updated 03/20/24 @ 14:28 by Jesus Starr MD) Osteoarthritis of left knee (Acute) Fatigue (Acute) Knee osteoarthritis (Acute) Hyperglycemia (Acute) Hyperlipidemia (Acute) Nocturnal hypoxia (Acute) Sleep apnea (Acute) Hypothyroid (Acute) HTN (hypertension) (Acute) Restrictive lung disease (Acute) Morbid obesity (Acute) Past Medical History Medical History Macular degeneration of left eye Walker as ambulation aid Osteoarthritis TENZIN (obstructive sleep apnea) Restrictive lung disease Hypothyroid Restrictive lung disease Morbid obesity Family History Family History Father No problems noted. Mother Breast cancer Lung cancer Sister Breast cancer Family history of problems with anesthesia: No Surgical History Surgical History Hx of basal cell carcinoma excision Hx laparoscopic cholecystectomy Hx of hysterectomy History of surgery of uterus History of shoulder surgery Hx of total knee replacement Hx of cholecystectomy History of Problems with Anesthesia: No (Reports some memory issues following 2016 TKA) Social History Social History Household Members: Spouse Housing: House Are you a primary home health care case manager to a significant other at home: No Do you presently have visiting nurse or other home services: No Patient Tobacco Use Status: Former Tobacco user Tobacco use type: Cigarette e-Cigarette/Vaping Use: Never Used Use of substances other than those prescribed or required for medical reasons: No Are you DNR?: No Advance Directives: No Advance Directives Information Provided: Yes Recently lost weight without trying: No service: No Current occupational status: retired Cognitive needs: No Hearing needs: No Vision needs: Yes Meds Allergies Allergy/AdvReac Type Severity Reaction Status Date / Time oxycodone [From Percocet] Allergy Severe Itching, Verified 03/27/24 13:17 swelling of the eyelids Influenza Virus Vaccines Allergy Swelling Verified 04/08/24 08:23 bees Allergy Severe Anaphylaxis Uncoded 03/27/24 13:17 Home Medications ?Medication ?Instructions ?Recorded ?Confirmed ?Last Taken ?Type isosorbide mononitrate 30 mg 30 mg PO DAILY 07/13/22 04/08/24 04/08/24 05:45 History tablet,extended release 24 hr albuterol sulfate 90 mcg/actuation 2 puff inhalation Q6H PRN 03/13/23 04/08/24 Unknown History aerosol inhaler Shortness Of Breath aspirin 81 mg tablet,delayed 81 mg PO DAILY 03/13/23 04/08/24 03/25/24 History release (Adult Aspirin Regimen) ibuprofen 800 mg tablet 800 mg PO DAILY PRN Pain 03/20/24 04/08/24 03/25/24 History Exam Height,Weight and Vital Signs: Height 5 ft Weight 98.883 kg Last Vital Signs Pulse 77 03/20/24 12:16 Resp 16 03/20/24 12:16 BP 146/73 H 03/20/24 12:16 Pulse Ox 97 03/20/24 12:16 O2 Del Method Room Air 03/20/24 12:16 Pertinent Lab Results Pertinent Lab Results: Lab Results 03/20/24 03/20/24 03/20/24 Range/Units 12:54 13:16 13:22 WBC 7.2 (4.8-10.8) X10*3/uL RBC 4.62 (4.20-5.50) X10*6/uL Hgb 13.3 (12.0-16.0) g/dl Hct 40.6 (37.0-47.0) % MCV 87.9 (80.0-98.0) fL MCH 28.8 (27.0-33.0) pg MCHC 32.8 (31.0-35.0) g/dl RDW 13.2 (11.0-16.0) % Plt Count 342 (160-400) X10*3/uL MPV 9.9 (9.4-12.3) fL Absolute Nucleated RBC 0.000 (0.0-0.012) X10*3/uL Nucleated RBC % (auto) 0.0 (0.0-0.2) /100WBC Sodium 142 (135-145) mmol/L Potassium 4.7 D (3.3-5.1) mmol/L Chloride 110 H (96-108) mmol/L Carbon Dioxide 26 (22-29) mmol/L Anion Gap 11 L (12-20) BUN 14 (9-16) mg/dL Creatinine 0.67 (0.5-1.4) mg/dL Estim Creat Clear Calc 74.2 Estimated GFR > 60 Random Glucose 105 (60-115) mg/dL Calcium 10.7 H (8.4-10.2) mg/dL Nasal Screen MRSA (PCR) NEGATIVE (Negative) Nasal S. aureus Screen NEGATIVE (Negative) Nasal MRSA/S.aureus Interp SEE NOTE Blood Type O Positive Antibody Screen NEGATIVE Narrative Narrative: EKG 03/2024 NSR @ 84 Cannot r/o anterior infarct Nuc Stress 03/2024 Small size, moderate intesity apical defect without reversibility. No evidence of ischemia. EF 73% Airway Mallampati Class: II TM Dist: >3cm Neck ROM: Full Partial: Upper Heart: RRR Lungs: CTAB Assessment and Plan Assessment Anesthesia Assessment: Chart Reviewed (Previously seen in PAT 03/20/24) Final Anesthetic Review Family History of Problems with Anesthesia: No History of Problems with Anesthesia: No (Reports some memory issues following 2016 TKA) Documented by User: Alisha Cortez MD 04/08/24 09:44 [facility] Past Medical History Medical History Macular degeneration of left eye Walker as ambulation aid Osteoarthritis TENZIN (obstructive sleep apnea) Restrictive lung disease Hypothyroid Restrictive lung disease Morbid obesity Family History Family History Father No problems noted. Mother Breast cancer Lung cancer Sister Breast cancer Surgical History Surgical History Hx of basal cell carcinoma excision Hx laparoscopic cholecystectomy Hx of hysterectomy History of surgery of uterus History of shoulder surgery Hx of total knee replacement Hx of cholecystectomy Social History Social History Household Members: Spouse Housing: House Are you a primary home health care case manager to a significant other at home: No Do you presently have visiting nurse or other home services: No Patient Tobacco Use Status: Former Tobacco user Tobacco use type: Cigarette e-Cigarette/Vaping Use: Never Used Use of substances other than those prescribed or required for medical reasons: No Are you DNR?: No Advance Directives: No Advance Directives Information Provided: Yes Recently lost weight without trying: No service: No Current occupational status: retired Cognitive needs: No Hearing needs: No Vision needs: Yes Meds Allergies Allergy/AdvReac Type Severity Reaction Status Date / Time oxycodone [From Percocet] Allergy Severe Itching, Verified 03/27/24 13:17 swelling of the eyelids Influenza Virus Vaccines Allergy Swelling Verified 04/08/24 08:23 bees Allergy Severe Anaphylaxis Uncoded 03/27/24 13:17 Home Medications ?Medication ?Instructions ?Recorded ?Confirmed ?Last Taken ?Type isosorbide mononitrate 30 mg 30 mg PO DAILY 07/13/22 04/08/24 04/08/24 05:45 History tablet,extended release 24 hr albuterol sulfate 90 mcg/actuation 2 puff inhalation Q6H PRN 03/13/23 04/08/24 Unknown History aerosol inhaler Shortness Of Breath aspirin 81 mg tablet,delayed 81 mg PO DAILY 03/13/23 04/08/24 03/25/24 History release (Adult Aspirin Regimen) ibuprofen 800 mg tablet 800 mg PO DAILY PRN Pain 03/20/24 04/08/24 03/25/24 History Assessment and Plan Assessment Anesthesia Assessment: Anesthesia Plan Discussed Final Anesthetic Review NPO: Yes ASA Class: III Final Preanesthetic Review: No Changes in Pt Med Stat, Meds/Allgs Chart Reviewed, Consent Obtained/Reviewed and Anes Risks/Benef Reviewed Patient Risk: Intermediate Procedure Risk: Low Anesthetic Plan Anesthetic Plan: MAC: Disposition: Standard PACU
[2024-04-08] VITALS (12 sets, daily range): BP systolic 121–166; BP diastolic 59–81; PULSE 71–94; RESP 16–18; TEMP 36.4–37.2; O2SAT 95–99; BMI 41.6; BMI 41.9
--- NOTE | ~2024-04-08 | XR_ITS ---
EXAMINATION: XR KNEE, LEFT CLINICAL INFORMATION: Total knee arthroplasty COMPARISON: Left knee x-rays March 27, 2024 TECHNIQUE: Two views of the left knee. FINDINGS: Patient is status post left total knee arthroplasty. There is no periprosthetic fracture. Expected subcutaneous emphysema. Small suprapatellar joint effusion. Skin christina noted. XR/XR knee LT 2V IMPRESSION: Expected postoperative changes of the left knee. Electronically signed by: Freddie Hare MD 04/09/2024 03:47 PM EDT
[2024-04-08 08:34] LABS: Hematocrit 41.4 % (37.0-47.0); Hemoglobin 13.8 g/dl (12.0-16.0)
[2024-04-08] MEDS: Lactated Ringers 1,000 ML 100 ML IVCONT ×2 (09:15→15:10)
--- NOTE | 2024-04-08 09:29 | MHC.SHP ---
Pre-Procedural Eval Section A - 24 Hr Update-Section A only Date of Service: 04/08/24 The patient is an INPATIENT: No Changes since office visit: No Cold of Flu in the past 2 weeks, No New Medical Problems, No Changes in Medication and No Patient answered all questions The patient has been examined within 24 hours of the surgical procedure. The History & Physical has been completed within 30 days and I have reviewed it.: Yes Section B - Complete if H&P > 30 days Chief Complaint: Unilateral primary osteoarthritis, left knee Allergies: Allergies Allergy/AdvReac Type Severity Reaction Status Date / Time oxycodone [From Percocet] Allergy Severe Itching, Verified 03/27/24 13:17 swelling of the eyelids Influenza Virus Vaccines Allergy Swelling Verified 04/08/24 08:23 bees Allergy Severe Anaphylaxis Uncoded 03/27/24 13:17 Plan I have reviewed the history and physical and performed a pertinent physical examination on my patient. No changes have occurred unless specified. Time Spent With Patient Time: Total time managing care of this patient today ____ minutes.
--- NOTE | 2024-04-08 12:37 | P.BOP_ITS ---
Brief Operative Note Date of Service: 04/08/24 Pre-op diagnosis: Left knee OA Post-op diagnosis: same Procedure: Left TKA Implants: [place] [employer] cemented 07/21/13 Surgeon: Pranav Yu MD Anesthesia: regional and spinal Was an Divisional Merchandising Manager used for this Procedure?: Yes Divisional Merchandising Manager: Lotus Ayala Estimated blood loss (mL): 25 Tourniquet time (min): 60 IV fluids (mL): 1,000 Pathology: other Condition: stable Disposition: PACU
--- NOTE | 2024-04-08 12:45 | P.OP_ITS ---
Operative Note Operative Note Date of Service: 04/08/24 Narrative: Date of Service: 04/08/24 Pre-op diagnosis: Left knee OA Post-op diagnosis: same Procedure: Left TKA Implants: [place] [employer] cemented 07/21/13PS/29a Surgeon: Pranav Yu MD Anesthesia: regional and spinal Was an Hair Specialist used for this Procedure?: Yes Hair Specialist: Lotus Ayala Estimated blood loss (mL): 25 Tourniquet time (min): 60 IV fluids (mL): 1,000 Pathology: other Condition: stable Disposition: PACU Procedure in detail: The patient was brought to the operating room and prepped and draped in standard sterile fashion. A time-out was called to identify proper site proper procedure proper surgeon and IV antibiotics were administered. 1 g of IV tranexamic acid was administered. I began by making a midline incision to the retinaculum and performed a medial parapatellar arthrotomy. The patella was translated laterally and the knee was flexed up. The medial compartment was eburnated. I performed a small medial peel and resected the infrapatellar fat pad. Yuly's line was then used to drill my intramedullary femoral guide and my distal femur cut of 12 mm (10 deg flexion contracture) was made in 5 degrees of valgus while protecting the soft tissues. I then measured a # 2 femur and shay vaibhav my cutting guide and made my anterior posterior and chamfer cuts in 3 deg ER while protecting the soft tissues at all times. I then made my box but removing the PCL. Once I was satisfied with my cuts I turned my attention to the tibia. I removed the meniscus medially and laterally and , using an external cutting guide, in line with the tibial crest and the third ray, I made my distal tibial cut in 0 deg slope of while protecting the posterior soft tissues at all times. An extension block was used to confirm appropriate amount of bony resection. I then sized a #3 tibia and once I was satisfied that there was complete tibial coverage I placed my trial and with the trial femur in place took the knee through range of motion. I was satisfied with the extension and flexion as well as the balance at 0, 30 and 90 degrees. I then turned my attention to the patella where I removed 1 cm from the undersurface of the patella and then trialed a 29a patellar button. Again the knee was taken through range of motion I was satisfied with the tracking. I then prepared the tibia with a drill and punch. A femoral bone plug was placed and the knee was irrigated copiously. I then cemented the patella, tibia and femur in standard fashion. Axial compression adn a clamp were used while the cement dried. Once the cement was hard on the back table all excess cement was removed and I trialed different inserts until I selected a #14insert. The final insert was placed and local TXA was administered. The knee was then closed with a running Quill suture, a 3 0 Vicryl and christina on the skin. Patient was then placed in sterile dressing and brought to recovery room in stable condition there were no known complications.
--- NOTE | 2024-04-08 12:57 | PHA.MEDREC ---
Pharmacy Consult ? Medication Reconciliation Pharmacy has completed the medication reconciliation.
--- NOTE | 2024-04-08 13:35 | P.DS_ITS ---
DS: Providers Provider Date of Service: 04/09/24 Primary care physician: Queta Ambriz MD DS: Summary Hospital Course Hospital Course: The patient underwent a successful left total knee arthroplasty, they were tr ansferred to PACU and then to the floor to recover. During their stay, their vitals were stable, afebrile at 99.2. Labs were unremarkable, H/H 12.7/37.5. POD 1 they were started on Lovenox for DVT ppx, they also received Physical Therapy services twice a day. Prior to discharge, their dressing was clean dry and intact, and the plan was to be discharged home with VNA services. Time Attestation Discharge Coordination Time (in mins): 30 Quality: Safe Use of Opioids Does Pt have an Active Cancer Diagnosis on the Problem List?: No Quality: Stroke Does the patient have a stroke diagnosis?: No Physical Exam Vital Signs: Vital Signs: Last Vital Signs Temp 97.6 F 04/08/24 12:53 Pulse 75 04/08/24 13:23 Resp 16 04/08/24 13:23 BP 152/79 H 04/08/24 13:23 Pulse Ox 96 04/08/24 13:23 O2 Del Method Room Air 04/08/24 13:23 O2 Flow Rate 6 04/08/24 12:53 BMI result Body Mass Index 41.6 Const: General: cooperative, healthy appearing and no acute distress Resp: Effort & Inspection: normal respiratory effort and able to speak in complete sentences Cardio: Rate: regular rate Peripheral pulses: Peripheral pulses 2+ throughout GI: Palpation (GI): Soft to palpation Skin: Lesions: no lesions Rashes: no rashes Extrem: Other: left knee dressing is c/d/i. Able to dorsi/plantar flex. Calf is supple and n ontender. Sensation intact. Pedal pulse intact. DS: Data Data Completed and Pending Pending studies at discharge: Pending at discharge 04/08/24 12:30 Surgical [PTH] Routine Labs on day of discharge: Laboratory Results - last 24 hr 04/08/24 08:28 Hgb 13.8 Hct 41.4 Blood Type O Positive Antibody Screen NEGATIVE Discharge Plan Discharge Patient Disposition: Home, Self-Care Referrals: Lotus yAala PA-C [Physician Blood Bank Custodian] - 04/24/24 11:30 am Discharge Medications: New enoxaparin 40 mg/0.4 mL Syringe 40 mg subcut Q24H 42 Days Qty: 16.8 0RF celecoxib 200 mg Capsule 200 mg PO BID 30 Days Qty: 60 0RF acetaminophen 325 mg Tablet 650 mg PO Q6H PRN (Reason: Pain, Mild (Pain Scale 1-3), fever or headache) 30 Days Qty: 240 0RF hydromorphone 2 mg Tablet 1 mg PO Q4H PRN (Reason: Pain, Moderate(Pain Scale 4-6)) 7 Days Qty: 42 0RF Rx Instructions: Partial Fill upon patient request. docusate sodium 100 mg Capsule 100 mg PO BID 30 Days Qty: 60 0RF Continued amlodipine-valsartan 5-160 mg tablet 1 tab PO DAILY Qty: 90 0RF (DME) walker Misc See Rx Instructions .MEDSUPPLY Qty: 1 0RF Rx Instructions: Folding Front wheeled walker levothyroxine [Levoxyl] 137 mcg tablet 137 mcg PO DAILY isosorbide mononitrate 30 mg tablet extended release 24 hr 30 mg PO DAILY albuterol sulfate 90 mcg/actuation HFA aerosol inhaler 2 puff inhalation Q6H PRN (Reason: Shortness Of Breath) Held aspirin [Adult Aspirin Regimen] 81 mg tablet,delayed release (DR/EC) 81 mg PO DAILY Hold Instructions: Resume on 05/21/24. Discontinued ibuprofen 800 mg tablet 800 mg PO DAILY PRN (Reason: Pain) Discharge Orders: Discharge Order (Routine); Ordered 04/09/24 Ordered By: Sara Diaz Diet: Advance to usual diet Activity on Discharge: Walk with crutches Activity Restrictions/Additional Instructions: Physical Therapy for ROM 0-120, quad strength, gait training. Use walker for ambulation Limit stair climbing, No shower, No tub bath, No driving Continue anticoagulant x 6 weeks Keep Aquacel dressing clean, dry and intact. Follow up with orthopedics in 2 weeks Print Language: Lithuanian
--- NOTE | 2024-04-08 13:36 | P.F2F_ITS ---
Service Date Service Date: 04/08/24 Encounter Date of encounter: 04/09/24 Reasons for Services Signs and symptoms assessed: s/p LTKA Pt. is considered homebound due to recent surgery. Unable to drive, poor balance, poor gait mechanics. Reason for physical therapy: home safety and mobility, therapeutic exercises, restore joint function, gait/transfer training and ADL training Homebound: Leaving the home is medically contraindicated at this time without the asist of a device and/or another person due th the listed conditions above and below. Reason homebound: unsteady gait / fall risk, leg weakness, pain with ambulation and pain with transfers Certification: Based on the above findings, I certify that this patient is confined to the home and needs intermittent [facility] care, physical therapy and/or speech therapy, or continues to need occupational therapy. The patient is under my care, and I have initiated the establishment of the plan of care. The patient will be followed by a physician who will periodically review the plan of care. Time Spent With Patient Time: Total time managing care of this patient today ____ minutes.
--- NOTE | 2024-04-08 15:09 | P.CONHOSP_ITS ---
History of Present Illness Data of Consult Service Date: 04/08/24 Primary Care Provider: Queta Ambriz MD HPI 78-year-old woman with a history of osteoarthritis admitted by Orthopedic surgery and is status post left total knee arthroplasty. Surgery was unremarkable. Patient has been able to drink without any nausea or vomiting. No complaints of pain at this time. Vital signs within normal limits. Review of Systems 2 Review of Systems: Denies any recent fever chills or decrease in appetite respiratory denies any shortness of breath or cough cardiovascular denied chest pain gastrointestinal denies any dysphagia abdominal pain nausea vomiting or diarrhea genitourinary denies any dysuria frequency or hematuria musculoskeletal left knee ORIF neuropsych denies any weakness or seizures all other systems reviewed are negative [facility] Medical History Macular degeneration of left eye Walker as ambulation aid Osteoarthritis TENZIN (obstructive sleep apnea) Restrictive lung disease Hypothyroid Restrictive lung disease Morbid obesity Family History Father No problems noted. Mother Breast cancer Lung cancer Sister Breast cancer Surgical History Hx of basal cell carcinoma excision Hx laparoscopic cholecystectomy Hx of hysterectomy History of surgery of uterus History of shoulder surgery Hx of total knee replacement Hx of cholecystectomy Social History Household Members: Spouse Caregiver staying overnight: No Housing: Apartment Are you a primary animal care giver to a significant other at home: No Do you presently have visiting nurse or other home services: No 75 years or older and lives alone: No Patient Tobacco Use Status: Former Tobacco user Tobacco use type: Cigarette e-Cigarette/Vaping Use: Never Used service: No Current occupational status: retired Cognitive needs: No Hearing needs: No Vision needs: Yes Meds Allergies Allergy/AdvReac Type Severity Reaction Status Date / Time oxycodone [From Percocet] Allergy Severe Itching, Verified 04/24/24 11:34 swelling of the eyelids Influenza Virus Vaccines Allergy Swelling Verified 04/24/24 11:34 bees Allergy Severe Anaphylaxis Uncoded 04/24/24 11:34 Active Medications: Current Medications Acetaminophen (Acetaminophen 325 Mg Tablet) 650 mg PO Q6H PRN PRN Reason: Pain, Mild (Pain Scale 1-3), fever or headache Albuterol Sulfate (Albuterol Sulfate 90 Mcg 8 Gm Inhaler) 2 puff INHALE Q6H PRN PRN Reason: Shortness Of Breath Aspirin (Aspirin 325 Mg Tablet) 325 mg PO BID [facility] Celecoxib (Celecoxib 200 Mg Capsule) 200 mg PO BID [facility] Docusate Sodium (Docusate Sodium 100 Mg Capsule) 100 mg PO BID [facility] Hydromorphone HCl (Hydromorphone Hcl 0.5 Mg/0.5 Ml Syringe) 0.25 mg IVPUSH Q4H PRN; Protocol PRN Reason: Pain, Severe (Pain Scale 7-10) Lactated Ringer's (Lr) 1,000 mls @ 100 mls/hr IVCONT .Q10H ROCHELLE Stop: 04/09/24 12:59 Cefazolin Sodium/Dextrose (Ancef) 2 gm in 50 mls @ 100 mls/hr IV POSTOP ONE Stop: 04/08/24 17:29 Isosorbide Mononitrate (Isosorbide Mononitrate 30 Mg Tab.Er.24h) 30 mg PO DAILY [facility]; Protocol Non-Formulary Medication (Levothyroxine [Levoxyl]) 137 mcg PO DAILY [facility] Non-Formulary Medication (Amlodipine-Valsartan) 1 tab PO DAILY [facility] Ondansetron HCl (Ondansetron Hcl 4 Mg/2 Ml Vial) 4 mg IVPUSH Q8H PRN PRN Reason: Nausea and Vomiting Oxycodone HCl (Oxycodone Hcl Immed Release 5 Mg Tablet) 5 mg PO Q4H PRN PRN Reason: Pain, Moderate(Pain Scale 4-6) Sodium Chloride (0.9 % Sodium Chloride Flush 3 Ml Syringe) 3 ml IVFLUSH QSHIFT [facility] Home Medications ?Medication ?Instructions ?Recorded ?Confirmed ?Last Taken ?Type isosorbide mononitrate 30 mg 30 mg PO DAILY 07/13/22 04/24/24 04/08/24 05:45 History tablet,extended release 24 hr albuterol sulfate 90 mcg/actuation 2 puff inhalation Q6H PRN 03/13/23 04/24/24 Unknown History aerosol inhaler Shortness Of Breath aspirin 81 mg tablet,delayed 81 mg PO DAILY 03/13/23 04/24/24 03/25/24 History release (Adult Aspirin Regimen) levothyroxine 137 mcg tablet 137 mcg PO DAILY 04/08/24 04/24/24 Unknown History (Levoxyl) Physical Exam 2 Vital Signs and Narrative: Vital Signs: Last Vital Signs Temp 97.8 F 04/08/24 14:35 Pulse 77 04/08/24 14:35 Resp 16 04/08/24 14:35 BP 150/72 H 04/08/24 14:35 Pulse Ox 97 04/08/24 14:35 O2 Del Method Room Air 04/08/24 14:35 O2 Flow Rate 6 04/08/24 12:53 BMI result Body Mass Index 41.6 Appearing in no acute distress head is normocephalic atraumatic eyes pupils are PERRLA sclera is anicteric mouth throat mucous membranes are intact and moist neck is supple no lymphadenopathy, no JVD noted lung sounds are clear to auscultation heart regular rate rhythm, clear S1, S2 positive bowel sounds, abdomen is soft, nontender neuro patient is alert x3, no focal deficits Left knee surgical dressing intact, surgical incision not visualized Results Labs 04/09/24 05:58 04/09/24 05:58 Labs: Laboratory Results - last 24 hr 04/08/24 08:28 Blood Type O Positive Antibody Screen NEGATIVE Assessment and Plan (1) Status post total knee replacement, left: Status: Acute Plan 78-year-old woman admitted by Orthopedic surgery and is status post left total knee arthroplasty Left total knee arthroplasty Management as per surgical team Pain management Hypertension. Stable blood pressure Continue home medications tomorrow History of restrictive lung disease Albuterol as needed Hypothyroidism Continue levothyroxine Obstructive sleep apnea Not on CPAP, unable to tolerate Obesity class 3, morbid obesity. BMI 41.6 Discussed importance of weight management as this may be contributing to worsening of other comorbidities DVT prophylaxis as per admitting provider Full code Medical consultation complete. Will sign off
[2024-04-08] MEDS: 0.9 % Sodium Chloride Flush 3 ML SYRINGE IVFLUSH ×2 (15:16→20:41)
[2024-04-08] MEDS: HYDROmorphone HCl 0.5 MG/0.5 ML SYRINGE 0.25 MG IVPUSH ×2 (15:43→20:41)
[2024-04-08] MEDS: ceFAZolin Sodium/Dextrose,Iso 2 GM/50 ML PIGGYBACK IV (17:19)
[2024-04-08] MEDS: Docusate Sodium 100 MG CAPSULE PO (20:41)
[2024-04-08] MEDS: Celecoxib 200 MG CAPSULE PO (20:41)
[2024-04-09] MEDS: Lactated Ringers 1,000 ML 100 ML IVCONT ×2 (00:54→12:42)
[2024-04-09 03:00] VITALS: BP 158/88; PULSE 83; RESP 18; TEMP 36.9; O2SAT 96
[2024-04-09] MEDS: HYDROcodone Bit/Acetam 5/325 TABLET 1 TAB PO (04:55)
[2024-04-09] MEDS: Levothyroxine Sodium 25 MCG TABLET PO (05:57)
[2024-04-09] MEDS: Levothyroxine Sodium 112 MCG TABLET PO (05:57)
[2024-04-09 06:35] LABS: MANUAL DIFF FLAG NO
[2024-04-09 07:00] VITALS: BP 177/86; PULSE 76; RESP 18; TEMP 37.4; O2SAT 96
[2024-04-09 07:06] LABS: Anion Gap 10 (12-20); Basophils Percent Auto 0.2 % (0-2); Blood Urea Nitrogen 15 mg/dL (9-16); Carbon Dioxide 23 mmol/L (22-29); Chloride 110 mmol/L (96-108); Creatinine Clr Calc Pharmacy 80.7; Estimated Glomerular Filt Rate > 60; Glucose Fasting 171 mg/dL (60-99); Hematocrit 37.5 % (37.0-47.0); Hemoglobin 12.7 g/dl (12.0-16.0); Imm Gran Abs Auto 0.05 X10*3/uL (0.00-0.03); Imm Gran Pct Auto 0.5 % (0.0-0.4); Lymphocytes Absolute Auto 0.8 X10*3/uL (1.2-4.9); Lymphocytes Percent Auto 7.6 % (20-40); Mean Corpuscular HGB Conc 33.9 g/dl (31.0-35.0); Mean Corpuscular Hemoglobin 28.7 pg (27.0-33.0); Mean Corpuscular Volume 84.7 fL (80.0-98.0); Mean Platelet Volume 9.8 fL (9.4-12.3); Monocytes Absolute Auto 0.4 X10*3/uL (0.1-1.2); Monocytes Percent Auto 3.9 % (2-11); Neutrophils Absolute Auto 9.7 x10*3/uL (2.0-8.3); Neutrophils Percent Auto 87.8 % (45-73); Platelet Count 337 X10*3/uL (160-400); Potassium 3.4 mmol/L (3.3-5.1); Red Blood Count 4.43 X10*6/uL (4.20-5.50); Red Cell Distribution Width 12.8 % (11.0-16.0); Sodium 140 mmol/L (135-145); White Blood Count 11.1 X10*3/uL (4.8-10.8)
--- NOTE | 2024-04-09 07:34 | PM.PNORT ---
Subjective Subjective Date of Service: 04/09/24 Interval history: POD1 s/p LTKA Patient is resting in bed - Pain is uncontrolled No overnight events No additional complaints Physical Exam Vital Signs: Vital Signs: Last Vital Signs Temp 99.4 F 04/09/24 07:00 Pulse 76 04/09/24 07:00 Resp 18 04/09/24 07:00 BP 177/86 H 04/09/24 07:00 Pulse Ox 96 04/09/24 07:00 O2 Del Method Room Air 04/09/24 07:00 O2 Flow Rate 6 04/08/24 12:53 BMI result Body Mass Index 41.9 Const: General: cooperative, healthy appearing and no acute distress Resp: Effort & Inspection: normal respiratory effort and able to speak in complete sentences Cardio: Rate: regular rate Peripheral pulses: Peripheral pulses 2+ throughout GI: Palpation (GI): Soft to palpation Skin: Lesions: no lesions Rashes: no rashes Extrem: Other: left knee dressing is c/d/i. Able to dorsi/plantar flex. Calf is supple and nontender. Sensation intact. Pedal pulse intact. Procedures Date of Service Date of Service: 04/09/24 Progress Note: A&P Assessment and plan (1) Status post total knee replacement, left: Status: Acute Plan Continue pain mgmnt - Adjustments made Begin Lovenox for dvt ppx begin PT for LTKA Dispo planning-Pending PT eval, pain mgmnt Time Spent With Patient Time: Total time managing care of this patient today ____ minutes. Quality Stroke Does the patient have a stroke diagnosis?: No VTE Prior VTE?: No VTE Risk Level:: Medical - moderate - high VTE Device Contraindication: N/A - Device Ordered VTE Drug Contraindication: N/A - Med Ordered
[2024-04-09 07:49] VITALS: BP 159/60
[2024-04-09] MEDS: Isosorbide Mononitrate 30 MG TAB.ER.24H PO (08:03)
[2024-04-09] MEDS: HYDROmorphone HCl 2 MG TABLET 1 MG PO ×2 (08:03→12:44)
[2024-04-09] MEDS: Celecoxib 200 MG CAPSULE PO (08:04)
[2024-04-09] MEDS: Valsartan 160 MG TABLET PO (08:04)
[2024-04-09] MEDS: amLODIPine Besylate 5 MG TABLET PO (08:05)
[2024-04-09] MEDS: Docusate Sodium 100 MG CAPSULE PO (08:07)
--- NOTE | 2024-04-09 08:23 | HO.POSTANES ---
Post Anesthesia Evaluation Post Anesthesia Evaluation Date of Service: 04/09/24 Vital Signs: Vital Signs Temp Pulse Resp BP Pulse Ox O2 Del Method 04/09/24 07:49 159/60 H 04/09/24 07:00 99.4 F 76 18 177/86 H 96 Room Air 04/09/24 03:00 98.5 F 83 18 158/88 H 96 Room Air 04/08/24 23:39 98.8 F 88 18 166/79 H 95 Room Air Anesthesia: Spinal Mental Status: Awake Pain Control: Satisfactory Nausea/Vomiting: None Hydration: Adequate Anesthesia-Related Issues: No Anes. Related Issues
--- NOTE | 2024-04-09 09:00 | MHC.CM.PN ---
Addendum entered by Yaz Zepeda 04/09/24 14:14: DP: PT HAS BEEN MEDICALLY CLEARED FOR DC HOME WITH [facility] FOR P.T. SERVICES. [facility] UPDATED ON TODAY'S DC. RN AWARE AND COMPLETED LOVENOX TEACHING WITH PT. SON WILL TRANSPORT HOME. Original Note: [facility] DELIVERED PT LIVES WITH SPOUSE. INDEPENDENT WITH MOBILITY AT HOME, USES ROLLATOR PRN WHEN WALKING LONG DISTANCES OUTSIDE OF HOME. GRAB BARS IN BR. + HCP PCP DR. QUIROZ DP: HOME WITH NEW [facility] (PT FIRST CHOICE) FOR P.T. PT HAS OWN RIDE HOME. CM WILL CONTINUE TO FOLLOW FOR ANY CHANGE TO DC PLAN/NEEDS.
[2024-04-09 09:34] VITALS: BP 159/60
[2024-04-09] MEDS: Acetaminophen 325 MG TABLET 650 MG PO (09:39)
[2024-04-09 11:00] VITALS: BP 160/70; PULSE 84; RESP 16; TEMP 37.3; O2SAT 96
[2024-04-09] MEDS: Enoxaparin Sodium 40 MG/0.4 ML SYRINGE SUBCUT (12:45)
--- NOTE | 2024-04-09 14:04 | PC.NURSE ---
Pt. was taught Lovenox injection administration and care with demonstration, discussion and teach back.
[2024-04-09 14:12] VITALS: BP 160/70; PULSE 84; O2SAT 96
== END 2024-04-09 14:51 | disposition home or self-care (01) ==
LOC: HO.SSS 13:35 → HO.S3 13:55
PROVIDERS: Physician Assistant; PCP Internal Medicine; Visit Provider Orthopaedic Surgery
PROC: (CPT 27447; principal; 2024-04-08 11:20)
DX: M17.12 Unilateral primary osteoarthritis, left knee (principal); R26.2 Difficulty in walking, not elsewhere classified; M25.562 Pain in left knee; E66.01 Morbid (severe) obesity due to excess calories; Z68.41 Body mass index [BMI] 40.0-44.9, adult; J98.4 Other disorders of lung; G47.33 Obstructive sleep apnea (adult) (pediatric); H35.30 Unspecified macular degeneration; Z79.1 Long term (current) use of non-steroidal anti-inflammatories (NSAID); Z79.82 Long term (current) use of aspirin; Z79.899 Other long term (current) drug therapy; Z99.89 Dependence on other enabling machines and devices; Z88.5 Allergy status to narcotic agent; Z98.890 Other specified postprocedural states; Z87.891 Personal history of nicotine dependence
CPT/HCPCS: 27447; 36415; 73560; 80048; 85014; 85018; 85025; 86850; 86900; 86901; 88305; 88311; 97116; 97161; C1713; C1776; J0131; J0665; J0690; J1100; J1171; J1650; J2003; J2250; J2371; J2704; J7120

== ENCOUNTER → 2024-04-08 07:50 | Outpatient (BNV) | payer MEDICARE, MEDICAID, SELFPAY | PROVIDERS: PCP Internal Medicine; Visit Provider Nurse Practitioner Acute Care | DX: Z96.652 Presence of left artificial knee joint (principal); I10 Essential (primary) hypertension; E03.9 Hypothyroidism, unspecified; G47.33 Obstructive sleep apnea (adult) (pediatric) | CPT/HCPCS: 99222 ==

== ENCOUNTER → 2024-04-08 07:50 | Outpatient (BNV) | payer MEDICARE, MEDICAID, SELFPAY | PROVIDERS: PCP Internal Medicine; Visit Provider Orthopaedic Surgery | DX: M17.12 Unilateral primary osteoarthritis, left knee (principal) | CPT/HCPCS: 27447; 99024; G0180 ==

== ENCOUNTER 2024-04-24 11:15 | Outpatient (AMB) | payer MEDICARE, MEDICAID, SELFPAY ==
--- NOTE | 2024-04-24 11:24 | A.OFFVIS_ITS ---
Intake Visit Reasons: 2WK PO: L TKA w/NE 04/08/24 Intake Note: Silvia a 78 year old female who presents today for a post operative visit s/p LT TKA, DOS 04/08/24 NE. Patient reports she is doing well, states her only discomfort comes with knee stretches. Allergies oxycodone [From Percocet] Allergy (Severe, Verified 04/24/24 11:34) Itching, swelling of the eyelids Influenza Virus Vaccines Allergy (Verified 04/24/24 11:34) Swelling bees Allergy (Severe, Uncoded 04/24/24 11:34) Anaphylaxis Medication List - Last Reconciled 04/24/24 by Lotus Ayala PA-C acetaminophen 650 mg (2 x 325 mg) PO Q6H PRN 30 days albuterol sulfate 90 mcg/actuation 2 puffs inhalation Q6H PRN amlodipine-valsartan 5-160 mg 1 tab PO DAILY aspirin (Adult Aspirin Regimen) 81 mg PO DAILY celecoxib 200 mg PO BID 30 days docusate sodium 100 mg PO BID 30 days enoxaparin 40 mg (0.4 mL) subcut Q24H 42 days hydromorphone 1 mg (1/2 x 2 mg) PO Q4H PRN 7 days isosorbide mononitrate ER 30 mg PO DAILY levothyroxine (Levoxyl) 137 mcg PO DAILY walker Folding Front wheeled walker HPI HPI 2WK PO: L TKA w/NE 04/08/24: Details: 78-year-old female who returns to the office today for post-op left TKA, 04/08/[address] Yu. She reports she has discomfort with knee stretches however she is doing well otherwise. She has been working on home therapy as instructed. [facility] Medical History Macular degeneration of left eye Walker as ambulation aid Osteoarthritis TENZIN (obstructive sleep apnea) Restrictive lung disease Hypothyroid Restrictive lung disease Morbid obesity Surgical History Hx of basal cell carcinoma excision Hx laparoscopic cholecystectomy Hx of hysterectomy History of surgery of uterus History of shoulder surgery Hx of total knee replacement Hx of cholecystectomy Family History Father No problems noted. Mother Breast cancer Lung cancer Sister Breast cancer Social History Household Members: Spouse Caregiver staying overnight: No Housing: Apartment Are you a primary director critical care to a significant other at home: No Do you presently have visiting nurse or other home services: No 75 years or older and lives alone: No Patient Tobacco Use Status: Former Tobacco user Tobacco use type: Cigarette e-Cigarette/Vaping Use: Never Used service: No Current occupational status: retired Cognitive needs: No Hearing needs: No Vision needs: Yes Review of Systems Const All systems reviewed & are unremarkable except as noted in HPI and below Physical Exam Extrem Other: Left knee: Incision clean, dry and intact. No redness or drainage. ROM is 0-120 degrees. Calf supple, nontender. NVI. Assessment & Plan Assessment & Plan (1) Status post total knee replacement, left: Code(s): Z96.652 - Presence of left artificial knee joint Category: Surgical Plan [place] removed, steri strips applied. She will begin to transition to Outpatient PT to continue working on Gait training, ROM and quad strength. No driving for another 4 weeks. will require ppx abx for dental procedures. She will f/u in 4 weeks, sooner if needed. ? Patient Instructions: Scribed for Lotus Ayala PA-C, by Ab Espinoza medical insurance claims specialist, on 04/24/2024 at 11:30 AM EST.? I, Lotus Ayala PA-C, have personally reviewed and agree with the information entered by the scribe. Coding Level of Care Code Global (04558) Diagnoses Status post total knee replacement, left Z96.652
== END 2024-04-24 12:13 | disposition home or self-care (01) ==
LOC: HO.HOS 11:15
PROVIDERS: PCP Internal Medicine; Visit Provider Physician Assistant
DX: Z96.652 Presence of left artificial knee joint (principal)
CPT/HCPCS: 99024

== ENCOUNTER → 2024-04-24 11:15 | Outpatient (BNVA) | payer MEDICARE, MEDICAID, SELFPAY | PROVIDERS: PCP Internal Medicine; Visit Provider Physician Assistant | DX: Z96.652 Presence of left artificial knee joint (principal) | CPT/HCPCS: 99212 ==

== ENCOUNTER 2024-05-06 10:19 | Outpatient (AMB) | payer MEDICARE, MEDICAID, SELFPAY ==
--- NOTE | 2024-05-06 10:22 | MHC.OFFVIS ---
Intake Visit Reasons: PO-LT TKA on 04/08/24 Intake Note: Silvia a 78 year old female who presents today for a post operative visit s/p LT TKA, DOS 04/08/24 NE. Patient reports she noticed her knee get very red and hot to touch a couple days after her christina were removed. No signs of fever. She mentions that her knee was also swollen but today her swelling has gone down. Allergies oxycodone [From Percocet] Allergy (Severe, Verified 05/06/24 10:26) Itching, swelling of the eyelids Influenza Virus Vaccines Allergy (Verified 05/06/24 10:26) Swelling bees Allergy (Severe, Uncoded 04/24/24 11:34) Anaphylaxis HPI HPI PO-LT TKA on 04/08/24: Details: 78-year-old female who presents in the office today a 4 weeks status post left total knee arthroplasty, which was performed on 04/08/[address] Yu. The patient was seen by Lotus MATTSON on 04/24/24 when she was transitioned to outpatient physical therapy to continue working on gait training. ROM and quad strength. She was restricted from driving for another 4 weeks. While in the office today, the patient reports she noticed erythema and was warm to touch her left knee 2 days after her christina were removed. She also mentions edema in her left knee which has decreased today. [facility]LY [facility] Medical History Macular degeneration of left eye Walker as ambulation aid Osteoarthritis TENZIN (obstructive sleep apnea) Restrictive lung disease Hypothyroid Restrictive lung disease Morbid obesity Surgical History Hx of basal cell carcinoma excision Hx laparoscopic cholecystectomy Hx of hysterectomy History of surgery of uterus History of shoulder surgery Hx of total knee replacement Hx of cholecystectomy Family History Father No problems noted. Mother Breast cancer Lung cancer Sister Breast cancer Social History Household Members: Spouse Caregiver staying overnight: No Housing: Apartment Are you a primary critical care unit nurse to a significant other at home: No Do you presently have visiting nurse or other home services: No 75 years or older and lives alone: No Patient Tobacco Use Status: Former Tobacco user Tobacco use type: Cigarette e-Cigarette/Vaping Use: Never Used service: No Current occupational status: retired Cognitive needs: No Hearing needs: No Vision needs: Yes Review of Systems Const All systems reviewed & are unremarkable except as noted in HPI and below Physical Exam Const General: cooperative, healthy appearing and no acute distress Resp Effort & Inspection: normal respiratory effort and able to speak in complete sentences Cardio Rate: regular rate Peripheral pulses: Peripheral pulses 2+ throughout GI Palpation (GI): Soft to palpation Skin Lesions: no lesions Rashes: no rashes Extrem Other: Left knee incision site is c/d/i. There is erythema at the proximal end of the incision site roughly [id number]. No open areas, no active drainage. ROM 0-120. NVI. Assessment & Plan Assessment & Plan (1) Status post total knee replacement, left: Code(s): Z96.652 - Presence of left artificial knee joint Category: Surgical Plan Ms. Steinberg is a 78-year-old female who presents in the office today a 4 weeks status post left total knee arthroplasty, which was performed on 04/08/[address] Yu. The patient was seen by Lotus MATTSON on 04/24/24 when she was transitioned to outpatient physical therapy to continue working on gait training. ROM and quad strength. She was restricted from driving for another 4 weeks. While in the office today, the patient reports she noticed erythema and was warm to touch her left knee 2 days after her christina were removed. She also mentions edema in her left knee which has decreased today. A prescription for cephalexin 500 mg PO BID for 10 days was sent to the pharmacy. I did consider Bactrim; however, this was non-formulary and therefore I prescribed her with cephalexin. The case was discussed with SRINIVASAN Gautam, and the patient will follow up with Lotus MATTSON for a wound check. Follow-up will be on 05/12/24 with Lotus MATTSON for wound check, or sooner if needed. Medications: New cephalexin 500 mg PO BID 20 caps 0RF 10 days Patient Instructions: Scribed by Carleen Oleary medical diagnostic radiographer, for Sara Emily PA-C on 05/06/2024 at 11:08 am EST. Coding Level of Care Code Global (97591) Diagnoses Status post total knee replacement, left Z96.652
== END 2024-05-06 10:47 | disposition home or self-care (01) ==
PROVIDERS: PCP Internal Medicine; Visit Provider Physician Assistant
DX: Z96.652 Presence of left artificial knee joint (principal)
CPT/HCPCS: 99024

== ENCOUNTER → 2024-05-06 10:19 | Outpatient (BNVA) | payer MEDICARE, MEDICAID, SELFPAY | PROVIDERS: PCP Internal Medicine; Visit Provider Physician Assistant | DX: Z47.1 Aftercare following joint replacement surgery (principal); Z96.652 Presence of left artificial knee joint | CPT/HCPCS: 99212 ==

== ENCOUNTER 2024-05-12 11:29 | Outpatient (AMB) | payer MEDICARE, MEDICAID, SELFPAY ==
--- NOTE | 2024-05-12 11:43 | MHC.OFFVIS ---
Intake Visit Reasons: PO-wound check LT TKA on 04/08/24 Intake Note: Silvia a 78 year old female who presents today for a post operative LT TKA, DOS: 04/08/24 NE. Patient reports that she continues to have a lot of pain. States after christina were removed she had an increase of swelling and redness at incision site. Her swelling made it difficult to walk over the weekend. She continues taking antibiotic as prescribed. Allergies oxycodone [From Percocet] Allergy (Severe, Verified 05/12/24 11:47) Itching, swelling of the eyelids Influenza Virus Vaccines Allergy (Verified 05/12/24 11:47) Swelling bees Allergy (Severe, Uncoded 05/12/24 11:47) Anaphylaxis HPI HPI PO-wound check LT TKA on 04/08/24: Details: 78-year-old female who returns to the office today for post-op wound check s/p left TKA, 04/08/[address] Yu. She continues to have chronic pain and swelling in her left knee. Her swelling and pain made her unable to walk over the weekend. She reports she had increased swelling and redness at the incision site after her christina were removed. She has been taking antibiotics as prescribed. [facility]LY [facility] Medical History Macular degeneration of left eye Walker as ambulation aid Osteoarthritis TENZIN (obstructive sleep apnea) Restrictive lung disease Hypothyroid Restrictive lung disease Morbid obesity Surgical History Hx of basal cell carcinoma excision Hx laparoscopic cholecystectomy Hx of hysterectomy History of surgery of uterus History of shoulder surgery Hx of total knee replacement Hx of cholecystectomy Family History Father No problems noted. Mother Breast cancer Lung cancer Sister Breast cancer Social History Household Members: Spouse Caregiver staying overnight: No Housing: Apartment Are you a primary primary care sales representative to a significant other at home: No Do you presently have visiting nurse or other home services: No 75 years or older and lives alone: No Patient Tobacco Use Status: Former Tobacco user Tobacco use type: Cigarette e-Cigarette/Vaping Use: Never Used service: No Current occupational status: retired Cognitive needs: No Hearing needs: No Vision needs: Yes Review of Systems Const All systems reviewed & are unremarkable except as noted in HPI and below Physical Exam Extrem Other: Left knee: Incision well healed. She has scant redness along the incision. No joint effusion. No defect along the quad tendon. She is able to SLR. Flexion to 90 degrees. Calf supple, nontender. NVI. Assessment & Plan Assessment & Plan (1) Status post total knee replacement, left: Code(s): Z96.652 - Presence of left artificial knee joint Category: Surgical Plan Dr. Yu was available to see the patient with me today. She will continue with antibiotics and continue with physical therapy exercises. There is no evidence of a deep joint infection at this time. It does appear to be superficial and improving since the last visit therefore she will see me back in 2 weeks, sooner if needed. Patient Instructions: Scribed for Lotus Ayala PA-C, by Ab Espinoza certified medical transcriptionist, on 05/12/2024 at 11:45 AM EST.? I, Lotus Ayala PA-C, have personally reviewed and agree with the information entered by the scribe. Coding Level of Care Code Global (67137) Diagnoses Status post total knee replacement, left Z96.652
== END 2024-05-12 13:30 | disposition home or self-care (01) ==
PROVIDERS: PCP Internal Medicine; Visit Provider Physician Assistant
DX: Z96.652 Presence of left artificial knee joint (principal)
CPT/HCPCS: 99024

== ENCOUNTER → 2024-05-12 11:29 | Outpatient (BNVA) | payer MEDICARE, MEDICAID, SELFPAY | PROVIDERS: PCP Internal Medicine; Visit Provider Physician Assistant | DX: Z96.652 Presence of left artificial knee joint (principal) | CPT/HCPCS: 99212 ==

== ENCOUNTER 2024-05-21 10:30 | Outpatient (REF) | payer MEDICARE, MEDICAID, SELFPAY ==
[2024-05-21 13:08] LABS: MANUAL DIFF FLAG NO
[2024-05-21 13:19] LABS: Basophils Absolute Auto 0.1 X10*3/uL (0.0-0.2); Basophils Percent Auto 0.8 % (0-2); Eosinophils Absolute Auto 0.3 X10*3/uL (0.0-0.4); Eosinophils Percent Auto 3.5 % (0-4); Hematocrit 39.8 % (37.0-47.0); Hemoglobin 12.9 g/dl (12.0-16.0); Imm Gran Abs Auto 0.02 X10*3/uL (0.00-0.03); Imm Gran Pct Auto 0.3 % (0.0-0.4); Lymphocytes Absolute Auto 1.9 X10*3/uL (1.2-4.9); Lymphocytes Percent Auto 26.7 % (20-40); Mean Corpuscular HGB Conc 32.4 g/dl (31.0-35.0); Mean Corpuscular Hemoglobin 28.5 pg (27.0-33.0); Mean Corpuscular Volume 88.1 fL (80.0-98.0); Mean Platelet Volume 9.9 fL (9.4-12.3); Monocytes Absolute Auto 0.5 X10*3/uL (0.1-1.2); Monocytes Percent Auto 6.4 % (2-11); Neutrophils Absolute Auto 4.5 x10*3/uL (2.0-8.3); Neutrophils Percent Auto 62.3 % (45-73); Platelet Count 365 X10*3/uL (160-400); Red Blood Count 4.52 X10*6/uL (4.20-5.50); Red Cell Distribution Width 13.1 % (11.0-16.0); White Blood Count 7.2 X10*3/uL (4.8-10.8)
[2024-05-21 13:32] LABS: Estimated Average Glucose 97 mg/dL; Total Hemoglobin (HGBA1C) 3336.6166 umol/L
[2024-05-21 13:37] LABS: Alanine Aminotransferase 29 U/L (0-31); Albumin Level 4.1 g/dL (3.5-5.0); Alkaline Phosphatase 68 U/L (39-117); Anion Gap 10 (12-20); Aspartate Amino Transferase 26 U/L (5-31); Bilirubin Total 0.6 mg/dL (0.0-1.0); Blood Urea Nitrogen 22 mg/dL (9-16); Carbon Dioxide 27 mmol/L (22-29); Chloride 108 mmol/L (96-108); Estimated Glomerular Filt Rate > 60; Glucose Random 104 mg/dL (60-115); Potassium 4.2 mmol/L (3.3-5.1); Sodium 141 mmol/L (135-145); Total Protein 7.3 g/dL (6.5-8.0)
[2024-05-21 13:55] LABS: TSH reflex Free T4 0.02 uIU/mL (0.32-4.0)
[2024-05-21 14:59] LABS: Free T4 (Free Thyroxine) 1.55 ng/dL (0.71-1.85)
[2024-05-22 16:53] LABS: Triiodothyronine T3 Free 3.8 pg/mL (2.3-4.2)
== END 2024-05-21 10:31 | disposition home or self-care (01) ==
LOC: HO.HMGCLDS 10:30
PROVIDERS: PCP Internal Medicine; Visit Provider Internal Medicine
DX: R53.83 Other fatigue (principal); E03.9 Hypothyroidism, unspecified; I10 Essential (primary) hypertension; Z13.1 Encounter for screening for diabetes mellitus
CPT/HCPCS: 36415; 80053; 83036; 84439; 84443; 84481; 85025

== ENCOUNTER 2024-05-26 13:00 | Outpatient (RCR) | payer MEDICARE, MEDICAID, SELFPAY ==
--- NOTE | 2024-05-28 10:12 | MHC.PT.DC ---
[facility] [place] Office [place] Office [place] Office [address] [facility] [phone] F: [phone] F: [phone] F: [phone] F: [phone] Physical Therapy Discharge Report Diagnosis: This is a 78 yo female presenting to skilled PT with a script for s/p L TKA. Date of Surgery: Date of Evaluation: 04/30/24 Date of Discharge: 05/28/24 Treatments to Date: 3 Cancellations to Date: 0 No Shows to Date: 0 Discharge Status: Physician Discontinued Tx Discharge Summary: Patient is undergoing a new surgery. DC and will re-eval when medically appropriate. Electronically signed by: Radhika Vyas PT Please sign and return to therapist. Thank you for your referral.
== END 2024-05-28 10:12 | disposition home or self-care (01) ==
LOC: HO.PTCHIC 13:00
PROVIDERS: PCP Internal Medicine; Visit Provider Physician Assistant
DX: Z96.652 Presence of left artificial knee joint (principal)
CPT/HCPCS: 97110; 97162

== ENCOUNTER 2024-05-26 14:36 | Outpatient (AMB) | payer MEDICARE, MEDICAID, SELFPAY ==
--- NOTE | 2024-05-26 14:37 | MHC.OFFVIS ---
Intake Visit Reasons: PO- LT TKA 04/08/24 NE Intake Note: Silvia is a 78 year old female who presents today for a post operative appointment s/p Left TKA 04/08/24. Patient reports that she continues to have lots of pain. She is taking 800mg of Ibuprofen, Which provides minimal relief. She continues to work with physical therapy. She explains that she has finished her Abx but continues to have infection - she believe that this infection is present due to increased pain, warmth to touch, redness and swelling. 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 Patient reports that she continues to have lots of pain. She is taking 800mg of Ibuprofen, Which provides minimal relief. She continues to work with physical therapy. She explains that she has finished her Abx but continues to have infection - she believe that this infection is present due to increased pain, warmth to touch, redness and swelling. [facility] Medical History Osteoarthritis of left knee Macular degeneration of left eye Walker as ambulation aid Osteoarthritis TENZIN (obstructive sleep apnea) Restrictive lung disease Hypothyroid Restrictive lung disease Morbid obesity Surgical History Hx of basal cell carcinoma excision Hx laparoscopic cholecystectomy Hx of hysterectomy History of surgery of uterus History of shoulder surgery Hx of total knee replacement Hx of cholecystectomy Family History Father No problems noted. Mother Breast cancer Lung cancer Sister Breast cancer Social History Household Members: Spouse Housing: Apartment Are you a primary urgent care technician to a significant other at home: No Do you presently have visiting nurse or other home services: No Patient Tobacco Use Status: Former Tobacco user Tobacco use type: Cigarette e-Cigarette/Vaping Use: Never Used Advance Directives: No Advance Directives Information Provided: Yes service: No Current occupational status: retired Cognitive needs: No Hearing needs: No Vision needs: Yes Physical Exam Extrem Other: The left knee inc is c/d/i There is no erythema There is ttp at the distal quad insertion at the level of the proximal most aspect of the incision. She has a weak quad with small possible defect Assessment & Plan Assessment & Plan (1) Status post total knee replacement, left: Code(s): Z96.652 - Presence of left artificial knee joint Category: Surgical Plan: (2) Injury of quadriceps muscle: Code(s): S76.109A - Unspecified injury of unspecified quadriceps muscle, fascia and tendon, initial encounter Category: Medical Plan: THis is a 78yo f now ~ 6 weeks s/p left TKA who may have a partial quad tear. The swelling and erythema have gone down but she is weak and there is a quaestionable palpable defect. I recodmmend exploration with possible quad repair. I discussed this with her and I discussed the risks benefits and alternatives including but not limited to the risk of pain, infection, stiffness, need for further surgery as well as potential medical complications such as blood clots, pulmonary embolism and cardiac complications. Coding Level of Care Code Global (48500) Diagnoses Status post total knee replacement, left Z96.652 Injury of quadriceps muscle S76.109A
== END 2024-05-26 15:08 | disposition home or self-care (01) ==
PROVIDERS: PCP Internal Medicine; Visit Provider Orthopaedic Surgery
DX: Z96.652 Presence of left artificial knee joint (principal); S76.109A Unspecified injury of unspecified quadriceps muscle, fascia and tendon, initial encounter
CPT/HCPCS: 99024

== ENCOUNTER → 2024-05-26 14:36 | Outpatient (BNVA) | payer MEDICARE, MEDICAID, SELFPAY | PROVIDERS: PCP Internal Medicine; Visit Provider Orthopaedic Surgery | DX: Z47.1 Aftercare following joint replacement surgery (principal); S76.109A Unspecified injury of unspecified quadriceps muscle, fascia and tendon, initial encounter; Z96.652 Presence of left artificial knee joint | CPT/HCPCS: 99212 ==

== ENCOUNTER 2024-05-27 12:21 | Outpatient (AMB) | payer MEDICARE, MEDICAID, SELFPAY ==
--- NOTE | 2024-05-27 12:34 | MHC.PC.OV ---
Vital Signs 05/27/24 12:36 Height 5 ft Weight 205 lb BMI 40.0 BP 134/76 Blood Pressure Location Lt brachial Position Sitting Pulse 89 Pulse Source Pulse Oximeter Pulse Oximetry (%) 96 Oxygen Delivery Method Room Air Intake Visit Reasons: follow up/thyroid medication Intake Note: Pt is here today for a follow up visit. Allergies oxycodone [From Percocet] Allergy (Severe, Verified 05/27/24 12:38) Itching, swelling of the eyelids Influenza Virus Vaccines Allergy (Verified 05/27/24 12:38) Swelling bees Allergy (Severe, Uncoded 05/27/24 12:38) Anaphylaxis Medication List - Last Reconciled 05/27/24 by Queta Ambriz MD acetaminophen 650 mg (2 x 325 mg) PO Q6H PRN 30 days albuterol sulfate 90 mcg/actuation 2 puffs inhalation Q6H PRN amlodipine-valsartan 5-160 mg 1 tab PO DAILY aspirin (Adult Aspirin Regimen) 81 mg PO DAILY docusate sodium 100 mg PO BID 30 days enoxaparin 40 mg (0.4 mL) subcut Q24H 42 days hydromorphone 1 mg (1/2 x 2 mg) PO Q4H PRN 7 days isosorbide mononitrate ER 30 mg PO DAILY levothyroxine 125 mcg PO DAILY walker Folding Front wheeled walker Tobacco use date assessed: 05/27/24 Dental Screening Dental Screen Date: 03/18/24 HPI follow up/thyroid medication HPI Details Pt presents for the follow-up on hypertension hypothyroidism. She will be starting lower dose of levothyroxine 125 mcg tomorrow. Patient is going for 2nd left knee surgery tomorrow. [facility] Medical History Osteoarthritis of left knee Macular degeneration of left eye Walker as ambulation aid Osteoarthritis TENZIN (obstructive sleep apnea) Restrictive lung disease Hypothyroid Restrictive lung disease Morbid obesity Surgical History Hx of basal cell carcinoma excision Hx laparoscopic cholecystectomy Hx of hysterectomy History of surgery of uterus History of shoulder surgery Hx of total knee replacement Hx of cholecystectomy Family History Father No problems noted. Mother Breast cancer Lung cancer Sister Breast cancer Social History Household Members: Spouse Caregiver staying overnight: No Housing: Apartment Are you a primary point of care specialist to a significant other at home: No Do you presently have visiting nurse or other home services: No 75 years or older and lives alone: No Patient Tobacco Use Status: Former Tobacco user Tobacco use type: Cigarette e-Cigarette/Vaping Use: Never Used service: No Current occupational status: retired Cognitive needs: No Hearing needs: No Vision needs: Yes Questionnaire Thrive Questionnaire Date Thrive assessed: 04/09/24 ZACH-7 AMB Questionnaire ZACH-7 Date ZACH - 7 assessed: 12/27/23 Source: Developed by Drs. Kulwinder Carcamo, Modesta Capellan, Kory Robert and colleagues, with an educational clara from [employer]. Review of Systems Const All systems reviewed & are unremarkable except as noted in HPI and below Eyes Reports no additional complaints ENT Reports no additional complaints Card Reports no additional complaints Resp Reports no additional complaints GI Reports no additional complaints Physical exam (Primary Care) Vital Signs: Last Vital Signs Pulse 89 05/27/24 12:36 BP 134/76 05/27/24 12:36 Pulse Ox 96 05/27/24 12:36 Oxygen Delivery Method Room Air 05/27/24 12:36 BMI result Body Mass Index 40.0 Tobacco/Smoking Status: Tobacco use Status Tobacco use date assessed 05/27/24 05/27/24 12:40 Patient Tobacco Use Status Former Tobacco user 05/27/24 12:34 Tobacco use type Cigarette 05/27/24 12:34 e-Cigarette/Vaping Use Never Used 05/27/24 12:34 Thrive Assessment: Date of Thrive Assessment Date Thrive assessed 04/09/24 05/27/24 12:34 Const General: no acute distress HENMT Head: Yes normal to inspection Resp Effort & Inspection: normal respiratory effort Auscultation: clear to auscultation bilaterally Cardio Rhythm: regular rhythm Heart sounds: S1 normal heart sound present and S2 normal heart sound present GI Inspection: Yes normal to inspection Palpation (GI): Soft to palpation Percussion: Yes normal to percussion Auscultation: normal bowel sounds Coding Level of Care Code Est Pt Level 3 (62020) Diagnoses HTN (hypertension) I10 Hypothyroid E03.9 Status post total knee replacement, left Z96.652 Assessment & Plan Assessment & Plan (1) HTN (hypertension): Code(s): I10 - Essential (primary) hypertension Category: Medical Plan: Continue current medications (2) Hypothyroid: Code(s): E03.9 - Hypothyroidism, unspecified Category: Medical Plan: Patient will start 125 mcg of levothyroxine tomorrow and check TSH in 2 months (3) Status post total knee replacement, left: Code(s): Z96.652 - Presence of left artificial knee joint Category: Surgical Plan: Patient is going for 2nd surgery of left knee cause of worsening pain and swelling after knee replacement surgery 2 months ago Orders: Orders TSH reflex Free T4 2 Months E03.9 - Hypothyroidism, unspecified, I10 - Essential (primary) hypertension Medications: New levothyroxine 125 mcg PO DAILY 90 tabs 0RF Discontinued celecoxib Discontinued Reason: Doctor's Order 200 mg PO BID 30 days 60 caps 0RF cephalexin Discontinued Reason: Doctor's Order 500 mg PO BID 10 days 20 caps 0RF
[2024-05-27 12:36] VITALS: BP 134/76; PULSE 89; O2SAT 96; BMI 40.0
== END 2024-05-27 13:28 | disposition home or self-care (01) ==
PROVIDERS: PCP Internal Medicine; Visit Provider Internal Medicine
DX: I10 Essential (primary) hypertension (principal); E03.9 Hypothyroidism, unspecified; Z96.652 Presence of left artificial knee joint

== ENCOUNTER → 2024-05-27 12:21 | Outpatient (BNVA) | payer MEDICARE, MEDICAID, SELFPAY | PROVIDERS: PCP Internal Medicine; Visit Provider Internal Medicine | DX: E03.9 Hypothyroidism, unspecified (principal); I10 Essential (primary) hypertension; Z96.652 Presence of left artificial knee joint | CPT/HCPCS: 99212 ==

== ENCOUNTER 2024-05-28 12:11 | Day surgery (SDC) | payer MEDICARE, MEDICAID, SELFPAY ==
--- NOTE | 2024-05-27 10:39 | HO.ANESPROP2 ---
Documented by User: Ifrah Thorpe NP 05/27/24 10:41 HPI - Anesthesia Eval Consult details Narrative: 78yo F for Quad injury exploration vs Quad repair s/p Left ?Knee Replacement Total 03/2024 with spinal/block Per TKA PAT: Cardiac cleared (stress test done) Pulmo cleared. Rec'd O2 QHS and incentive spirometry leading up surgery PCP optimized No recent illness No CP/SOB with minimal activity TENZIN: no cpap, does not tolerate. Uses O2 on and off. Will use QHS leading up to surgery based on pulmo rec. RLD: Never needs albuterol PMFSH Active Problems Active Problems: All Active Problems Status post total knee replacement, left (Acute) Fatigue (Acute) Knee osteoarthritis (Acute) Hyperglycemia (Acute) Hyperlipidemia (Acute) Nocturnal hypoxia (Acute) Sleep apnea (Acute) Hypothyroid (Acute) HTN (hypertension) (Acute) Restrictive lung disease (Acute) Morbid obesity (Acute) Past Medical History Medical History Macular degeneration of left eye Walker as ambulation aid Osteoarthritis TENZIN (obstructive sleep apnea) Restrictive lung disease Hypothyroid Osteoarthritis of left knee Restrictive lung disease Morbid obesity Family History Family History Father No problems noted. Mother Breast cancer Lung cancer Sister Breast cancer Family history of problems with anesthesia: No Surgical History Surgical History History of total left knee replacement (TKR) Hx of basal cell carcinoma excision Hx laparoscopic cholecystectomy Hx of hysterectomy History of surgery of uterus History of shoulder surgery Hx of total knee replacement Hx of cholecystectomy History of Problems with Anesthesia: No (Reports some memory issues following 2016 TKA) Social History Social History Household Members: Spouse Housing: Apartment Are you a primary care management assistant to a significant other at home: No Do you presently have visiting nurse or other home services: No Patient Tobacco Use Status: Former Tobacco user Tobacco use type: Cigarette e-Cigarette/Vaping Use: Never Used Use of substances other than those prescribed or required for medical reasons: No Are you DNR?: No Advance Directives: No Advance Directives Information Provided: Yes Recently lost weight without trying: No service: No Current occupational status: retired Cognitive needs: No Hearing needs: No Vision needs: Yes Meds Allergies Allergy/AdvReac Type Severity Reaction Status Date / Time oxycodone [From Percocet] Allergy Severe Itching, Verified 05/28/24 14:12 swelling of the eyelids Influenza Virus Vaccines Allergy Swelling Verified 05/28/24 14:12 bees Allergy Severe Anaphylaxis Uncoded 05/27/24 12:38 Home Medications ?Medication ?Instructions ?Recorded ?Confirmed ?Last Taken ?Type isosorbide mononitrate 30 mg 30 mg PO DAILY 07/13/22 05/28/24 04/08/24 05:45 History tablet,extended release 24 hr albuterol sulfate 90 mcg/actuation 2 puff inhalation Q6H PRN 03/13/23 05/28/24 Unknown History aerosol inhaler Shortness Of Breath Exam Pertinent Lab Results Pertinent Lab Results: Laboratory Tests 05/21/24 10:38 WBC 7.2 Hgb 12.9 Hct 39.8 Plt Count 365 Sodium 141 Potassium 4.2 D Chloride 108 Carbon Dioxide 27 BUN 22 H Creatinine 0.66 Narrative Narrative: EKG 03/2024 NSR @ 84 Cannot r/o anterior infarct Nuc Stress 03/2024 Small size, moderate intesity apical defect without reversibility. No evidence of ischemia. EF 73% Assessment and Plan Final Anesthetic Review Family History of Problems with Anesthesia: No History of Problems with Anesthesia: No (Reports some memory issues following 2016 TKA) Documented by User: Alisha Cortez MD 05/28/24 16:06 [facility] Past Medical History Medical History Macular degeneration of left eye Walker as ambulation aid Osteoarthritis TENZIN (obstructive sleep apnea) Restrictive lung disease Hypothyroid Osteoarthritis of left knee Restrictive lung disease Morbid obesity Family History Family History Father No problems noted. Mother Breast cancer Lung cancer Sister Breast cancer Surgical History Surgical History History of total left knee replacement (TKR) Hx of basal cell carcinoma excision Hx laparoscopic cholecystectomy Hx of hysterectomy History of surgery of uterus History of shoulder surgery Hx of total knee replacement Hx of cholecystectomy History of Problems with Anesthesia: No Social History Social History Household Members: Spouse Housing: Apartment Are you a primary care management assistant to a significant other at home: No Do you presently have visiting nurse or other home services: No Patient Tobacco Use Status: Former Tobacco user Tobacco use type: Cigarette e-Cigarette/Vaping Use: Never Used Use of substances other than those prescribed or required for medical reasons: No Are you DNR?: No Advance Directives: No Advance Directives Information Provided: Yes Recently lost weight without trying: No service: No Current occupational status: retired Cognitive needs: No Hearing needs: No Vision needs: Yes Meds Allergies Allergy/AdvReac Type Severity Reaction Status Date / Time oxycodone [From Percocet] Allergy Severe Itching, Verified 05/28/24 14:12 swelling of the eyelids Influenza Virus Vaccines Allergy Swelling Verified 05/28/24 14:12 bees Allergy Severe Anaphylaxis Uncoded 05/27/24 12:38 Home Medications ?Medication ?Instructions ?Recorded ?Confirmed ?Last Taken ?Type isosorbide mononitrate 30 mg 30 mg PO DAILY 07/13/22 05/28/24 04/08/24 05:45 History tablet,extended release 24 hr albuterol sulfate 90 mcg/actuation 2 puff inhalation Q6H PRN 03/13/23 05/28/24 Unknown History aerosol inhaler Shortness Of Breath Exam Airway Mallampati Class: II TM Dist: >3cm Neck ROM: Full Heart: rrr Lungs: cta Assessment and Plan Assessment Anesthesia Assessment: Anesthesia Plan Discussed and Chart Reviewed Final Anesthetic Review History of Problems with Anesthesia: No NPO: Yes ASA Class: III Final Preanesthetic Review: No Changes in Pt Med Stat, Meds/Allgs Chart Reviewed, Consent Obtained/Reviewed and Anes Risks/Benef Reviewed Patient Risk: Intermediate Procedure Risk: Intermediate Anesthetic Plan Anesthetic Plan: GA and Regional Block Disposition: Standard PACU
[2024-05-28] VITALS (11 sets, daily range): BP systolic 122–160; BP diastolic 61–79; PULSE 58–97; RESP 15–20; TEMP 36.1–37.2; O2SAT 95–100; BMI 40.0
[2024-05-28] MEDS: Lactated Ringers 1,000 ML 100 ML IVCONT (13:50)
--- NOTE | 2024-05-28 16:54 | MHC.SHP ---
Pre-Procedural Eval Section A - 24 Hr Update-Section A only Date of Service: 05/28/24 The patient is an INPATIENT: No Changes since office visit: No Cold of Flu in the past 2 weeks, No New Medical Problems, No Changes in Medication and No Patient answered all questions The patient has been examined within 24 hours of the surgical procedure. The History & Physical has been completed within 30 days and I have reviewed it.: Yes Section B - Complete if H&P > 30 days Chief Complaint: Unspecified injury of left quadriceps muscle, fasc Allergies: Allergies Allergy/AdvReac Type Severity Reaction Status Date / Time oxycodone [From Percocet] Allergy Severe Itching, Verified 05/28/24 14:12 swelling of the eyelids Influenza Virus Vaccines Allergy Swelling Verified 05/28/24 14:12 bees Allergy Severe Anaphylaxis Uncoded 05/27/24 12:38 Plan I have reviewed the history and physical and performed a pertinent physical examination on my patient. No changes have occurred unless specified. Time Spent With Patient Time: Total time managing care of this patient today ____ minutes.
--- NOTE | 2024-05-28 18:00 | PM.OP ---
Brief Operative Note Date of Service: 05/28/24 Pre-op diagnosis: Left quad tear Post-op diagnosis: same Procedure: left quad repair Implants: Regeneten bioinductive collagen patch Surgeon: Pranav Yu MD Anesthesia: GETA and regional Was an Instant Printer Operator used for this Procedure?: Yes Instant Printer Operator: Sara Diaz Estimated blood loss (mL): 100 IV fluids (mL): 850 Pathology: other Condition: stable Disposition: PACU
[2024-05-28 18:48] LABS: RBC Synovial Fluid 0.009 X10*6/uL; WBC Synovial Fluid 0.364 X10*3/uL
[2024-05-28 19:14] LABS: Lymphocytes Synovial Fluid 11 %; Monocytes Synovial Fluid 45 %; Neutrophils Synovial Fluid 41 %; Other Cells Synovial Fluid 3
[2024-05-28 19:15] LABS: BF Shift QC OK YES
--- NOTE | 2024-05-28 20:55 | PHA.MEDREC ---
Pharmacy Consult ? Medication Reconciliation Pharmacy reviewed med rec done by nursing. Spoke with patient and she confirmed her medications. She confirmed she is not taking the Albuterol inhaler anymore not even as needed. She also confirmed she ran out of the Docusate 100mg tab and nevver got more. She also stated she is not longer taking the Enoxaparin 40 mg/0.4 mL and stated she completed that 2 weeks ago. She also stated she is no longer taking the Hydromorphone 2mg tab but states she has 1 tablet left at home if she is in extreme pain. The patient confirmed she took her Levthyroxine 125mcg tab this morning and everything else yesterday.
[2024-05-28] MEDS: Enoxaparin Sodium 40 MG/0.4 ML SYRINGE SUBCUT (21:19)
[2024-05-28] MEDS: Docusate Sodium 100 MG CAPSULE PO (21:19)
[2024-05-28] MEDS: ceFAZolin Sodium/Dextrose,Iso 2 GM/50 ML PIGGYBACK IV (22:56)
[2024-05-29 03:28] VITALS: BP 150/71; PULSE 78; RESP 18; TEMP 36.4; O2SAT 95
[2024-05-29] MEDS: Levothyroxine Sodium 125 MCG TABLET PO (05:30)
[2024-05-29 07:50] VITALS: BP 146/97; PULSE 78; RESP 18; TEMP 36.4; O2SAT 94
--- NOTE | 2024-05-29 07:59 | PM.PNORT ---
Subjective Subjective Date of Service: 05/29/24 Interval history: Postop day 1 status post left quad tendon repair Patient is resting comfortably in bed this morning No acute events overnight Patient reports that she still has no sensation in the left lower extremity and is unable to move the leg Patient states that she is very nervous about going home with regards to this as well as her mobility, as she states that there is nobody at home who can help her No other acute complaints or concerns at this time Physical Exam Vital Signs: Vital Signs: Last Vital Signs Temp 97.5 F 05/29/24 07:50 Pulse 78 05/29/24 07:50 Resp 18 05/29/24 07:50 BP 146/97 H 05/29/24 07:50 Pulse Ox 94 05/29/24 07:50 O2 Del Method Room Air 05/29/24 07:50 O2 Flow Rate 1 05/28/24 19:10 BMI result Body Mass Index 40.0 Extrem: Other: Brace on the left leg in place Dressing on left leg clean, dry, intact Patient reports no sensation in the left lower extremity at this time, likely secondary to block from surgery yesterday Patient is also unable to move the left lower extremity actively at this time, likely secondary to block from surgery yesterday Procedures Date of Service Date of Service: 05/29/24 Progress Note: A&P Assessment and plan (1) Injury of quadriceps muscle: Status: Acute Plan Postop day 1 status post left quad tendon repair Continue pain management Continue anticoagulation with Lovenox Dispo planning-PT eval, we will need to wait for block to wear off prior to discharge as well Time Spent With Patient Time: Total time managing care of this patient today ____ minutes. Quality Stroke Does the patient have a stroke diagnosis?: No VTE Prior VTE?: No VTE Risk Level:: Surgical - high VTE Device Contraindication: N/A - Device Ordered VTE Drug Contraindication: N/A - Med Ordered
[2024-05-29] MEDS: Isosorbide Mononitrate 30 MG TAB.ER.24H PO (08:44)
[2024-05-29] MEDS: AMLODIPINE BESYLATE 5 MG PO (08:44)
[2024-05-29] MEDS: VALSARTAN 160 MG PO (08:44)
[2024-05-29] MEDS: Docusate Sodium 100 MG CAPSULE PO ×2 (08:44→20:35)
--- NOTE | 2024-05-29 09:54 | MHC.CM.PN ---
Addendum entered by Karen De La Garza RN 05/29/24 13:59: Per Ortho PA, dc on hold until tomorrow. Addendum entered by Karen De La Garza RN 05/29/24 13:54: CM offer BLS transport. Patient declined. Addendum entered by Karen De La Garza RN 05/29/24 13:51: Per Ortho PA, patient medically cleared for dc. Patient will call son to transport. RN will teach lovenox prior to dc. Addendum entered by Karen De La Garza RN 05/29/24 10:50: [facility] able to provide SMALL PIECE CUTTER 2-3x/wk. [facility] liaison met with patient, patient declined LUBE ATTENDANT services w/ them d/t cost, but accepted MOW. Her sister in law will also come over daily to assist. Ortho PA aware. Original Note: Patient lives in a home w/ her . At baseline, she reports she is independent w/ ADL's and ambulates w/ rollator PRN. Has grab bars in bathroom. PCP Queta Ambriz MD HCP on file and verified. DP: PT rec STR. Patient declines STR. Would like to return home w/ PT and [facility] services in place. Feels that she will need assistance (LUBE ATTENDANT, home making, MOW) while recovering from surgery. Reports her is unable to assist. [facility] referral sent via [employer]. Referral also sent to [facility] per request for PT and SMALL PIECE CUTTER. Awaiting responses. Son will transport. CM will continue to follow.
--- NOTE | 2024-05-29 12:35 | HO.POSTANES ---
Post Anesthesia Evaluation Post Anesthesia Evaluation Date of Service: 05/29/24 Vital Signs: Vital Signs Temp Pulse Resp BP Pulse Ox O2 Del Method 05/29/24 07:50 97.5 F 78 18 146/97 H 94 Room Air 05/29/24 03:28 97.6 F 78 18 150/71 H 95 Room Air Anesthesia: Regional and General Mental Status: Awake Pain Control: Satisfactory Nausea/Vomiting: None Hydration: Adequate Anesthesia-Related Issues: No Anes. Related Issues
--- NOTE | 2024-05-29 13:11 | W.MHC.F2F ---
Service Date Service Date: 05/29/24 Encounter Date of encounter: 05/29/24 Reasons for Services Signs and symptoms assessed: Status post Left quadriceps tendon repair Homebound: Leaving the home is medically contraindicated at this time without the asist of a device and/or another person due th the listed conditions above and below. Reason homebound: unsteady gait / fall risk and pain with ambulation Certification: Based on the above findings, I certify that this patient is confined to the home and needs physical therapy and/or speech therapy, or continues to need occupational therapy. The patient is under my care, and I have initiated the establishment of the plan of care. The patient will be followed by a physician who will periodically review the plan of care. Time Spent With Patient Time: Total time managing care of this patient today ____ minutes.
--- NOTE | 2024-05-29 13:13 | PM.DS ---
DS: Providers Provider Date of Service: 05/29/24 Primary care physician: Qutea Ambriz MD DS: Diagnosis Discharge Diagnosis (1) Injury of quadriceps muscle: Status: Acute DS: Summary Hospital Course Hospital Course: The patient underwent a successful left quadriceps tendon repair on 05/28/2024, was transferred to PACU and then to the floor to recover. During their stay, their vitals were stable, afebrile at 97.5 . . POD 1 she was started on Lovenox 40 mg Subcutaneous a day for DVT ppx, they also received Physical Therapy services twice a day. Physical therapy should include WBAT with a walker. ? Brace may remain unlock 0-60 degrees - Do not bend any further ? Brace must be worn at all times Prior to discharge, her dressing was changed, incision clean dry and intact, new dressing applied. The dressing should remain intact and dry at all times. Any concerns with the dressing, please contact orthopedic office. No showering. The plan is to be discharged Status at Discharge Cognitive/behavioral status at discharge: Stable for discharge Time Attestation Discharge Coordination Time (in mins): 30 Quality: Safe Use of Opioids Does Pt have an Active Cancer Diagnosis on the Problem List?: No Quality: Stroke Does the patient have a stroke diagnosis?: No Physical Exam Vital Signs: Vital Signs: Last Vital Signs Temp 97.5 F 05/29/24 07:50 Pulse 78 05/29/24 07:50 Resp 18 05/29/24 07:50 BP 146/97 H 05/29/24 07:50 Pulse Ox 94 05/29/24 07:50 O2 Del Method Room Air 05/29/24 07:50 O2 Flow Rate 1 05/28/24 19:10 BMI result Body Mass Index 40.0 Extrem: Other: Brace on the left leg in place Dressing on left leg clean, dry, intact Patient reports no sensation in the left lower extremity at this time, likely secondary to block from surgery yesterday Patient is also unable to move the left lower extremity actively at this time, likely secondary to block from surgery yesterday DS: Data Data Completed and Pending Labs on day of discharge: Laboratory Results - last 24 hr 05/28/24 17:20 Synovial Source Left knee aspirate Synovial WBC 0.364 Synovial RBC 0.009 Synovial Neutrophils 41 Synovial Lymphocytes 11 Synovial Monocytes 45 Synovial Other Cells 3 Preliminary micro results at discharge 05/28/24 17:20 Anaerobic Culture - Preliminary Knee,Left No growth to date. Joint Fluid Culture - Preliminary No growth to date. Discharge Plan Discharge Patient Disposition: Home Health Service Referrals: Queta Ambriz MD [Primary Care Provider] - 1 Week Sara Diaz PA-C [Physician Marketing Programs Specialist] - 2 Weeks (06/05/24 15:00 [facility] [place] [facility] Surgeons) Discharge Medications: New hydromorphone 2 mg Tablet 1 mg PO Q4H PRN (Reason: Pain, Moderate(Pain Scale 4-6)) 7 Days Qty: 42 0RF Rx Instructions: Partial Fill upon patient request. enoxaparin 40 mg/0.4 mL Syringe 40 mg subcut Q24H 42 Days Qty: 16.8 0RF Continued (DME) walker [facility] [place] See Rx Instructions .MEDSUPPLY Qty: 1 0RF Rx Instructions: Folding Front wheeled walker amlodipine-valsartan 5-160 mg tablet 1 tab PO DAILY Qty: 90 3RF acetaminophen 325 mg Tablet 650 mg PO Q6H PRN (Reason: Pain, Mild (Pain Scale 1-3), fever or headache) 30 Days Qty: 240 0RF docusate sodium 100 mg Capsule 100 mg PO BID 30 Days Qty: 60 0RF isosorbide mononitrate 30 mg tablet extended release 24 hr 30 mg PO DAILY levothyroxine 125 mcg tablet 125 mcg PO DAILY Qty: 90 0RF Discharge Orders: Discharge Order (Routine); Ordered 05/29/24 Ordered By: Khoi Dwyer Diet: Advance to usual diet Activity on Discharge: Use cane or walker Activity Restrictions/Additional Instructions: ? Keep surgical dressings clean and dry ? Do not remove - Dressing will be removed at post op appointment ? Do not shower ? May WBAT with walker ? Brace may remain unlock 0-60 degrees - Do not bend any further ? Brace must be worn at all times Print Language: Indonesian
[2024-05-29 16:00] VITALS: BP 137/63; PULSE 81; RESP 18; TEMP 37.2; O2SAT 95
[2024-05-29 19:40] VITALS: BP 167/77; PULSE 79; RESP 18; TEMP 37; O2SAT 98
[2024-05-29] MEDS: Enoxaparin Sodium 40 MG/0.4 ML SYRINGE SUBCUT (20:36)
[2024-05-30 04:00] VITALS: BP 151/71; PULSE 76; RESP 18; TEMP 37.1; O2SAT 97
[2024-05-30] MEDS: Levothyroxine Sodium 125 MCG TABLET PO (05:38)
[2024-05-30 08:00] VITALS: BP 148/68; PULSE 74; RESP 16; TEMP 37; O2SAT 97
[2024-05-30] MEDS: Valsartan 160 MG TABLET PO (08:41)
[2024-05-30] MEDS: Docusate Sodium 100 MG CAPSULE PO (08:41)
[2024-05-30] MEDS: Isosorbide Mononitrate 30 MG TAB.ER.24H PO (08:41)
[2024-05-30] MEDS: amLODIPine Besylate 5 MG TABLET PO (08:41)
--- NOTE | 2024-05-30 09:39 | MHC.CM.PN ---
PT TO DC HOME TODAY WITH [facility] SERVICES SON TO TRANSPORT
--- NOTE | 2024-06-02 15:59 | P.OP_ITS ---
Operative Note Operative Note Date of Service: 05/28/24 Narrative: Date of Service: 05/28/24 Pre-op diagnosis: Left quad tear Post-op diagnosis: same Procedure: left quad repair Implants: Regeneten bioinductive collagen patch Surgeon: Pranav Yu MD Anesthesia: GETA and regional Was an Habilitation Training Specialist used for this Procedure?: Yes Habilitation Training Specialist: Sara Diaz Estimated blood loss (mL): 100 IV fluids (mL): 850 Pathology: other Condition: stable Disposition: PACU Patient was brought to the operating room and placed supine on the surgical table. She was prepped and draped in standard sterile fashion and a time out was called to identify proper site, proper procedure and IV antibiotics per weight were administered. I began by aspirating 15 mL of normal-appearing joint fluid. Antibiotics were then given. This fluid was sent to the lab but was not suspicious looking at all. I began by making a ~4 cm incision over the proximal aspect of the prior incision.. I dissected down to the fascia overlying the quadriceps tendon. There was scar tissue and some fibrous tissue adhering to the subcutaneous tissue. This was dissected night isolated the parapatellar and distal quadriceps fascia. The prior arthrotomy and repair was identified and there was, a partial quad tear and partial dehiscence with some evidence of healing. I used a sharp knife to debride necrotic tissue and was able to identify the area of injury. This was approximately a quarter size defect over the medial arthrotomy site with a majority of the lateral quad intact. I used a FiberWire to sew up the arthrotomy and then brought a portion of the VMO and medial tendon back to the intact lateral portion of the quadriceps mechanism. This reapproximated the normal anatomy nicely and I was able to bend the knee to 90 degrees without any tension on the repair. I then placed a large Regeneten bio inductive collagen patch over the repair and so the corners down with a 2-0 Vicryl. Prior to this I irrigated copiously in the joint. I then irrigated after closure and closed the subcutaneous tissue with absorbable suture and the skin with christina. Patient was placed into a sterile dressing and extubated and brought to recovery room in stable condition. There were no known complications.
== END 2024-05-30 08:58 | disposition home health service (06) ==
LOC: HO.SSS 12:11 → HO.S3 19:47
PROVIDERS: PCP Internal Medicine; Visit Provider Orthopaedic Surgery
PROC: (CPT 27385; principal; 2024-05-28 14:20)
DX: T81.328A Disruption or dehiscence of closure of other specified internal operation (surgical) wound, initial encounter (principal); S76.112A Strain of left quadriceps muscle, fascia and tendon, initial encounter; Y83.8 Other surgical procedures as the cause of abnormal reaction of the patient, or of later complication, without mention of misadventure at the time of the procedure; Y79.2 Prosthetic and other implants, materials and accessory orthopedic devices associated with adverse incidents; Y92.9 Unspecified place or not applicable; M25.462 Effusion, left knee; M17.12 Unilateral primary osteoarthritis, left knee; M25.562 Pain in left knee; Z96.652 Presence of left artificial knee joint; J98.4 Other disorders of lung; G47.33 Obstructive sleep apnea (adult) (pediatric); E03.9 Hypothyroidism, unspecified; Z85.828 Personal history of other malignant neoplasm of skin; Z79.899 Other long term (current) drug therapy; Z99.89 Dependence on other enabling machines and devices; Z88.5 Allergy status to narcotic agent; Z98.890 Other specified postprocedural states; Z87.891 Personal history of nicotine dependence
CPT/HCPCS: 27385; 20610; 87070; 87073; 87205; 89051; 97162; C1763; J0131; J0665; J0690; J1100; J1650; J2003; J2250; J2405; J2704

== ENCOUNTER → 2024-05-28 12:11 | Outpatient (BNV) | payer MEDICARE, MEDICAID, SELFPAY | PROVIDERS: PCP Internal Medicine; Visit Provider Orthopaedic Surgery | DX: S76.122A Laceration of left quadriceps muscle, fascia and tendon, initial encounter (principal) | CPT/HCPCS: 27385 ==

== ENCOUNTER 2024-06-05 14:49 | Outpatient (AMB) | payer MEDICARE, MEDICAID, SELFPAY ==
--- NOTE | 2024-06-05 14:51 | A.OFFVIS_ITS ---
Intake Visit Reasons: PO LT quad tendon repair 05/28/24 NE Intake Note: Silvia is a 78 year old female who presents today for a post op appointment s/p left quad tendon repair 05/28/24 NE. Patient reports she is still having pain since surgery. Allergies oxycodone [From Percocet] Allergy (Severe, Verified 06/05/24 14:56) Itching, swelling of the eyelids Influenza Virus Vaccines Allergy (Verified 06/05/24 14:56) Swelling bees Allergy (Severe, Uncoded 05/27/24 12:38) Anaphylaxis HPI HPI PO LT quad tendon repair 05/28/24 NE: Details: 78-year-old female who presents in the office today for 8 days status post left quad tendon repair, which was performed on 05/28/[address] Yu. While in the office today, the patient reports experiencing post-operative pain. The patient is status post left knee arthroplasty which was performed on 04/08/[address] Yu. [facility] Medical History Macular degeneration of left eye Walker as ambulation aid Osteoarthritis TENZIN (obstructive sleep apnea) Restrictive lung disease Hypothyroid Osteoarthritis of left knee Restrictive lung disease Morbid obesity Surgical History History of total left knee replacement (TKR) Hx of basal cell carcinoma excision Hx laparoscopic cholecystectomy Hx of hysterectomy History of surgery of uterus History of shoulder surgery Hx of total knee replacement Hx of cholecystectomy Family History Father No problems noted. Mother Breast cancer Lung cancer Sister Breast cancer Social History Household Members: Spouse Caregiver staying overnight: No Housing: Apartment Are you a primary care aide to a significant other at home: No Do you presently have visiting nurse or other home services: No 75 years or older and lives alone: No Patient Tobacco Use Status: Former Tobacco user Tobacco use type: Cigarette e-Cigarette/Vaping Use: Never Used service: No Current occupational status: retired Cognitive needs: No Hearing needs: No Vision needs: Yes Review of Systems Const All systems reviewed & are unremarkable except as noted in HPI and below Physical Exam Const General: cooperative, healthy appearing and no acute distress Resp Effort & Inspection: normal respiratory effort and able to speak in complete sentences Cardio Rate: regular rate Peripheral pulses: Peripheral pulses 2+ throughout GI Palpation (GI): Soft to palpation Skin Lesions: no lesions Rashes: no rashes Extrem Other: Left knee incision site is c/d/i. [place] intact. No surrounding erythema or drainage. No signs of infection. AROM 30-80 degrees. NVI. Assessment & Plan Assessment & Plan (1) Injury of quadriceps muscle: Code(s): S76.109A - Unspecified injury of unspecified quadriceps muscle, fascia and tendon, initial encounter Category: Medical (2) Status post total knee replacement, left: Code(s): Z96.652 - Presence of left artificial knee joint Category: Surgical Plan Mr. Steinberg is a 78-year-old female who presents in the office today for 8 days status post left quad tendon repair, which was performed on 05/28/[address] Yu. While in the office today, the patient reports experiencing post-operative pain. The patient is status post left knee arthroplasty which was performed on 04/08/[address] Yu was available to speak with me and see the patient today, and a collaborative treatment plan was made. The patient was educated that she may remove the brace and perform a range of motion exercises 0-90 degrees and nothing past 90 degrees. The brace should be on at all times while she is ambulating. Brace is unlocked from 0-80 degrees. The patient will follow up in one week in anticipation of the removal of christina. In the meantime, she can continue with a home physical therapy program. Additionally, exercises were demonstrated by Dr. Yu to the patient, who demonstrated understanding in regards to performing straight leg raises and knee flexion and extension exercises, not past 90 degrees. Follow-up will be in one week, or sooner if needed. Patient Instructions: Scribed by Carleen Oleary medical office technology instructor, for Sara Diaz PA-C on 06/05/24 at 3:37 pm EST. Coding Level of Care Code Global (23203) Diagnoses Injury of quadriceps muscle S76.109A Status post total knee replacement, left Z96.652
== END 2024-06-05 15:33 | disposition home or self-care (01) ==
PROVIDERS: PCP Internal Medicine; Visit Provider Physician Assistant
DX: S76.109A Unspecified injury of unspecified quadriceps muscle, fascia and tendon, initial encounter (principal); Z96.652 Presence of left artificial knee joint
CPT/HCPCS: 99024

== ENCOUNTER → 2024-06-05 14:49 | Outpatient (BNVA) | payer MEDICARE, MEDICAID, SELFPAY | PROVIDERS: PCP Internal Medicine; Visit Provider Physician Assistant | DX: S76.102A Unspecified injury of left quadriceps muscle, fascia and tendon, initial encounter (principal); X58.XXXA Exposure to other specified factors, initial encounter; Y93.9 Activity, unspecified; Y92.9 Unspecified place or not applicable; Y99.9 Unspecified external cause status; Z96.652 Presence of left artificial knee joint | CPT/HCPCS: 99212 ==

== ENCOUNTER 2024-06-13 12:56 | Outpatient (AMB) | payer MEDICARE, MEDICAID, SELFPAY ==
--- NOTE | 2024-06-13 13:04 | A.OFFVIS_ITS ---
Intake Visit Reasons: PO LT quad tendon repair 05/28/24 NE Intake Note: Silvia is a 78 year old female who presents today for a post op appointment s/p left quad tendon repair 05/28/24 NE. Patient reports her pain is improving. She is doing home P.T however feels she is not doing much due to doing P.T with brace on. Allergies oxycodone [From Percocet] Allergy (Severe, Verified 06/13/24 13:07) Itching, swelling of the eyelids Influenza Virus Vaccines Allergy (Verified 06/13/24 13:07) Swelling bees Allergy (Severe, Uncoded 06/13/24 13:07) Anaphylaxis HPI HPI PO LT quad tendon repair 05/28/24 NE: Details: 78-year-old female who presents in the office today 16 days status post left quad tendon repair, which was performed on 05/28/[address] Yu. I last saw the patient in the office on 06/05/24, when she was recommended to wear the brace while she was ambulating and encouraged to come out of the brace to perform a range of motion exercises. She was recommended to continue with a home physical therapy program and to perform exercises that were demonstrated by Dr. Yu in her last visit. While in the office today, the patient reports improved post-op pain. She cont inues doing a home physical therapy program; however, she mentions she does not feel like performing exercises with the brace on. The patient is status post left knee arthroplasty, which was performed on 04/08/[address] Yu. [facility] Medical History Macular degeneration of left eye Walker as ambulation aid Osteoarthritis TENZIN (obstructive sleep apnea) Restrictive lung disease Hypothyroid Osteoarthritis of left knee Restrictive lung disease Morbid obesity Surgical History History of total left knee replacement (TKR) Hx of basal cell carcinoma excision Hx laparoscopic cholecystectomy Hx of hysterectomy History of surgery of uterus History of shoulder surgery Hx of total knee replacement Hx of cholecystectomy Family History Father No problems noted. Mother Breast cancer Lung cancer Sister Breast cancer Social History Household Members: Spouse Caregiver staying overnight: No Housing: Apartment Are you a primary health care legal assistant to a significant other at home: No Do you presently have visiting nurse or other home services: No 75 years or older and lives alone: No Patient Tobacco Use Status: Former Tobacco user Tobacco use type: Cigarette e-Cigarette/Vaping Use: Never Used service: No Current occupational status: retired Cognitive needs: No Hearing needs: No Vision needs: Yes Review of Systems Const All systems reviewed & are unremarkable except as noted in HPI and below Physical Exam Const General: cooperative, healthy appearing and no acute distress Resp Effort & Inspection: normal respiratory effort and able to speak in complete sentences Cardio Rate: regular rate Peripheral pulses: Peripheral pulses 2+ throughout GI Palpation (GI): Soft to palpation Skin Lesions: no lesions Rashes: no rashes Extrem Other: Left knee incision site is c/d/i. [employer] intact. No surrounding erythema or drainage. No signs of infection. AROM 30-80 degrees. NVI. Assessment & Plan Assessment & Plan (1) Injury of quadriceps muscle: Code(s): S76.109A - Unspecified injury of unspecified quadriceps muscle, fascia and tendon, initial encounter Category: Medical (2) Status post total knee replacement, left: Code(s): Z96.652 - Presence of left artificial knee joint Category: Surgical Plan Ms. Steinberg is a 78-year-old female who presents in the office today 16 days status post left quad tendon repair, which was performed on 05/28/[address] Yu. I last saw the patient in the office on 06/05/24, when she was recommended to wear the brace while she was ambulating and encouraged to come out of the brace to perform a range of motion exercises. She was recommended to continue with a home physical therapy program and to perform exercises that were demonstrated by Dr. Yu in her last visit. While in the office today, the patient reports improved post-op pain. She continues doing a home physical therapy program; however, she mentions she does not feel like performing exercises with the brace on. The patient is status post left knee arthroplasty, which was performed on 04/08/[address] Yu. [place] were removed and steri-strips were applied. The patient was educated that she may remove the brace and perform a range of motion exercises 0-90 degrees and nothing past 90 degrees. The brace should be on at all times while she is ambulating. Brace is unlocked from 0-80 degrees. She was recommended to continue with a home physical therapy program and to perform exercises that were demonstrated by Dr. Yu in her last visit. Follow-up will be 3-4 weeks, or sooner if needed. Patient Instructions: Scribed by Carleen Oleary medical record consultant, for Sara Diaz PA-C on 06/13/24 at 1:26 pm EST. Coding Level of Care Code Global (48648) Diagnoses Injury of quadriceps muscle S76.109A Status post total knee replacement, left Z96.658
== END 2024-06-13 13:43 | disposition home or self-care (01) ==
PROVIDERS: PCP Internal Medicine; Visit Provider Physician Assistant
DX: S76.109A Unspecified injury of unspecified quadriceps muscle, fascia and tendon, initial encounter (principal); Z96.652 Presence of left artificial knee joint
CPT/HCPCS: 99024

== ENCOUNTER → 2024-06-13 12:56 | Outpatient (BNVA) | payer MEDICARE, MEDICAID, SELFPAY | PROVIDERS: PCP Internal Medicine; Visit Provider Physician Assistant | DX: S76.102D Unspecified injury of left quadriceps muscle, fascia and tendon, subsequent encounter (principal); X58.XXXD Exposure to other specified factors, subsequent encounter; Z96.652 Presence of left artificial knee joint | CPT/HCPCS: 99212 ==

== ENCOUNTER 2024-07-10 13:51 | Outpatient (AMB) | payer MEDICARE, MEDICAID, SELFPAY ==
--- NOTE | 2024-07-10 13:55 | MHC.OFFVIS ---
Intake Visit Reasons: PO LT quad tendon repair 05/28/24 NE Intake Note: Silvia is a 78 year old female who presents today for a post operative appointment six weeks s/p Left Quad Tendon Repair 05/28/24 & Left TKA 04/08/24. She has been instructed to wear brace while ambulating and encouraged to come out of brace while at home for ROM exercises. Patient reports that she is not good she has continued pain and discomfort - worse with weight bearing and improves slightly with rest. Allergies oxycodone [From Percocet] Allergy (Severe, Verified 06/13/24 13:07) Itching, swelling of the eyelids Influenza Virus Vaccines Allergy (Verified 06/13/24 13:07) Swelling bees Allergy (Severe, Uncoded 06/13/24 13:07) Anaphylaxis HPI HPI PO LT quad tendon repair 05/28/24 NE: Details: Silvia is a 78 year old female who presents today for a post operative appointment six weeks s/p Left Quad Tendon Repair 05/28/24 & Left TKA 04/08/24. She has been instructed to wear brace while ambulating and encouraged to come out of brace while at home for ROM exercises. Patient reports that she is not good she has continued pain and discomfort - worse with weight bearing and improves slightly with rest. [facility] Medical History Macular degeneration of left eye Walker as ambulation aid Osteoarthritis TENZIN (obstructive sleep apnea) Restrictive lung disease Hypothyroid Osteoarthritis of left knee Restrictive lung disease Morbid obesity Surgical History History of total left knee replacement (TKR) Hx of basal cell carcinoma excision Hx laparoscopic cholecystectomy Hx of hysterectomy History of surgery of uterus History of shoulder surgery Hx of total knee replacement Hx of cholecystectomy Family History Father No problems noted. Mother Breast cancer Lung cancer Sister Breast cancer Social History Household Members: Spouse Caregiver staying overnight: No Housing: Apartment Are you a primary reservoir caretaker to a significant other at home: No Do you presently have visiting nurse or other home services: No 75 years or older and lives alone: No Patient Tobacco Use Status: Former Tobacco user Tobacco use type: Cigarette e-Cigarette/Vaping Use: Never Used service: No Current occupational status: retired Cognitive needs: No Hearing needs: No Vision needs: Yes Physical Exam Extrem Other: No palpable defect. Extension to 0 with mild pain. Assessment & Plan Assessment & Plan (1) Status post total knee replacement, left: Code(s): Z96.652 - Presence of left artificial knee joint Category: Surgical Plan: Continue weight-bearing as tolerated. No brace required. (2) Injury of quadriceps muscle: Code(s): S76.109A - Unspecified injury of unspecified quadriceps muscle, fascia and tendon, initial encounter Category: Medical Plan: Small quad tear stable. Continue gentle straight leg raising. Follow up 4-6 weeks. Coding Level of Care Code Global (57783) Diagnoses Status post total knee replacement, left Z96.652 Injury of quadriceps muscle S76.109A
== END 2024-07-10 14:47 | disposition home or self-care (01) ==
PROVIDERS: PCP Internal Medicine; Visit Provider Orthopaedic Surgery
DX: Z96.652 Presence of left artificial knee joint (principal); S76.109A Unspecified injury of unspecified quadriceps muscle, fascia and tendon, initial encounter
CPT/HCPCS: 99024

== ENCOUNTER → 2024-07-10 13:51 | Outpatient (BNVA) | payer MEDICARE, MEDICAID, SELFPAY | PROVIDERS: PCP Internal Medicine; Visit Provider Orthopaedic Surgery | DX: S76.109D Unspecified injury of unspecified quadriceps muscle, fascia and tendon, subsequent encounter (principal); Z96.652 Presence of left artificial knee joint | CPT/HCPCS: 99212 ==

== ENCOUNTER 2024-07-23 11:07 | Outpatient (AMB) | payer MEDICARE, MEDICAID, SELFPAY ==
[2024-07-23 11:12] VITALS: BP 124/72; PULSE 74; RESP 18; TEMP 36.7; O2SAT 96; BMI 39.3
--- NOTE | 2024-07-23 11:12 | A.OFFPC_ITS ---
Vital Signs 07/23/24 11:12 Height 5 ft Weight 201 lb BMI 39.3 BP 124/72 Blood Pressure Location Lt brachial Position Sitting Respiration 18 Pulse 74 Pulse Source Pulse Oximeter Temp 98.1 F Temp Source Oral Pulse Oximetry (%) 96 Oxygen Delivery Method Room Air Intake Visit Reasons: PE Intake Note: Pt is here today for PE. Allergies oxycodone [From Percocet] Allergy (Severe, Verified 07/23/24 11:16) Itching, swelling of the eyelids Influenza Virus Vaccines Allergy (Verified 07/23/24 11:16) Swelling bees Allergy (Severe, Uncoded 07/23/24 11:16) Anaphylaxis Medication List - Last Reconciled 07/23/24 by Queta Ambriz MD acetaminophen 650 mg (2 x 325 mg) PO Q6H PRN 30 days amlodipine-valsartan 5-160 mg 1 tab PO DAILY docusate sodium 100 mg PO BID 30 days enoxaparin 40 mg (0.4 mL) subcut Q24H 42 days hydromorphone 1 mg (1/2 x 2 mg) PO Q4H PRN 7 days isosorbide mononitrate ER 30 mg PO DAILY levothyroxine 125 mcg PO DAILY walker Folding Front wheeled walker Tobacco use date assessed: 07/23/24 Fall risk assessment: No Falls in past year Last assessed Fall Risk: 07/23/24 Dental Screening Dental Screen Date: 07/23/24 Did you have a dental visit in the last 12 months?: Yes Did you have a dental problem in the last 6 months where you did not have access to dental care?: No Was dental information given to patient?: Patient has dentist HPI PE HPI Details Pt presents for PE. Hypertension hypothyroidism controlled on current medications. Patient is recovering from left knee arthroplasty surgery , still using walker to ambulate. [facility] Medical History Macular degeneration of left eye Walker as ambulation aid Osteoarthritis TENZIN (obstructive sleep apnea) Restrictive lung disease Hypothyroid Osteoarthritis of left knee Restrictive lung disease Morbid obesity Surgical History History of total left knee replacement (TKR) Hx of basal cell carcinoma excision Hx laparoscopic cholecystectomy Hx of hysterectomy History of surgery of uterus History of shoulder surgery Hx of total knee replacement Hx of cholecystectomy Family History Father No problems noted. Mother Breast cancer Lung cancer Sister Breast cancer Social History Household Members: Spouse Caregiver staying overnight: No Housing: Apartment Are you a primary plant health care technician to a significant other at home: No Do you presently have visiting nurse or other home services: No 75 years or older and lives alone: No Patient Tobacco Use Status: Former Tobacco user Tobacco use type: Cigarette e-Cigarette/Vaping Use: Never Used service: No Current occupational status: retired Cognitive needs: No Hearing needs: No Vision needs: Yes Questionnaire Thrive Questionnaire Date Thrive assessed: 07/23/24 I am a: Patient What is your living situation today?: I have a steady place to live Within the past 12 months, did the food you bought not last and you didn't have the money to get more?: Never true Within the past 12 months, did you worry whether your food would run out before you got money to buy more?: Never true Do you have trouble paying for medicines?: No Do you have trouble getting transportation to medical appointments?: No Do you have trouble paying your heating and electricity bill?: No Do you have trouble taking care of your child, family member or friend?: No Do you have trouble with day-to-day activities such as bathing, preparing meals, shopping, managing finances, etc.?: No Are you currently unemployed and looking for a job?: No Are you interested in more education?: No Please select the resources that you would like help with: None THRIVE Score: 0 AUDIT C Alcohol Use Questionnaire (AUDIT-C) 1. How often do you have a drink containing alcohol?: Never 3. How often do you have six or more drinks on one occasion?: Never Total Score: 0 ZACH-7 AMB Questionnaire ZACH-7 Date ZACH - 7 assessed: 07/23/24 Feeling nervous, anxious, or on edge: 0 = Not at all Not being able to stop or control worryin = Not at all Worrying too much about different things: 0 = Not at all Trouble relaxin = Not at all Being so restless that it is hard to sit still: 0 = Not at all Becoming easily annoyed or irritable: 0 = Not at all Feeling afraid as if something awful might happen: 0 = Not at all Total ZACH-7 score (0-4 normal; 5-9 mild; 10-14 moderate; 15-21 severe): 0 Source: Developed by Drs. Kulwinder Carcamo, Modesta Capellan, Kory Robert and colleagues, with an educational clara from [employer]. ZACH-7 Assessment Billing ZACH-7 Assessment Tool: ZACH-7 Assessment 98177 Review of Systems Const All systems reviewed & are unremarkable except as noted in HPI and below Reports no additional complaints Eyes Reports no additional complaints ENT Reports no additional complaints Card Reports no additional complaints Resp Reports no additional complaints GI Reports no additional complaints Reports no additional complaints Physical exam (Primary Care) Vital Signs: Last Vital Signs Temp 98.1 F 07/23/24 11:12 Pulse 74 07/23/24 11:12 Resp 18 07/23/24 11:12 BP 124/72 07/23/24 11:12 Pulse Ox 96 07/23/24 11:12 Oxygen Delivery Method Room Air 07/23/24 11:12 BMI result Body Mass Index 39.3 Tobacco/Smoking Status: Tobacco use Status Tobacco use date assessed 07/23/24 07/23/24 11:16 Patient Tobacco Use Status Former Tobacco user 07/23/24 11:13 Tobacco use type Cigarette 07/23/24 11:13 e-Cigarette/Vaping Use Never Used 07/23/24 11:13 Thrive Assessment: Date of Thrive Assessment Date Thrive assessed 07/23/24 07/23/24 11:13 Const General: no acute distress HENMT Head: Yes normal to inspection Face and sinus: Yes normal facial exam Resp Effort & Inspection: normal respiratory effort Auscultation: clear to auscultation bilaterally Cardio Rhythm: regular rhythm Heart sounds: S1 normal heart sound present and S2 normal heart sound present GI Inspection: Yes normal to inspection Palpation (GI): Soft to palpation Percussion: Yes normal to percussion Auscultation: normal bowel sounds Coding Level of Care Code Est Pt Prev Care >65y(14734) Diagnoses HTN (hypertension) I10 Hypothyroid E03.9 Morbid obesity E66.01 Hyperlipidemia E78.5 Hyperglycemia R73.9 Additional Codes ZACH-7 Assessment Billing - ZCAH-7 Assessment Tool: ZACH-7 Assessment 70156 ([id number]) Assessment & Plan Assessment & Plan (1) HTN (hypertension): Code(s): I10 - Essential (primary) hypertension Category: Medical Plan: Continue current medications. Patient will stop isosorbide and will monitor her blood pressure. (2) Hypothyroid: Code(s): E03.9 - Hypothyroidism, unspecified Category: Medical Plan: Continue levothyroxine return in 6 months with a fasting labs before (3) Morbid obesity: Comment: BMI= 42.6 , PATIENT IS AWARE OF BEING OVERWEIGHT, SHE IS NOT ABLE TO LOSE MUCH WEIGHT. Code(s): E66.01 - Morbid (severe) obesity due to excess calories Category: Medical Plan: Increasing physical activity decreasing caloric intake weight loss discussed with the patient (4) Hyperlipidemia: Comment: Patient refuses medications Code(s): E78.5 - Hyperlipidemia, unspecified Category: Medical Plan: Continue low-cholesterol diet (5) Hyperglycemia: Code(s): R73.9 - Hyperglycemia, unspecified Category: Medical Plan: Continue ADA diet and monitor A1c Orders: Orders Lipid Panel 6 Months E03.9 - Hypothyroidism, unspecified, E66.01 - Morbid (severe) obesity due to excess calories, E78.5 - Hyperlipidemia, unspecified, I1 0 - Essential (primary) hypertension TSH reflex Free T4 6 Months E03.9 - Hypothyroidism, unspecified, E66.01 - Morbid (severe) obesity due to excess calories, E78.5 - Hyperlipidemia, unspecified, I10 - Essential (primary) hypertension Complete Blood Count Auto Diff 6 Months E03.9 - Hypothyroidism, unspecified, E66.01 - Morbid (severe) obesity due to excess calories, E78.5 - Hyperlipidemia, unspecified, I10 - Essential (primary) hypertension Comprehensive [place]. Panel Fast 6 Months E03.9 - Hypothyroidism, unspecified, E66.01 - Morbid (severe) obesity due to excess calories, E78.5 - Hyperlipidemia, unspecified, I10 - Essential (primary) hypertension Hemoglobin A1c 6 Months R73.9 - Hyperglycemia, unspecified Medications: Changed From docusate sodium 100 mg PO BID 30 days 60 caps 0RF To docusate sodium 100 mg PO BID 180 caps 1RF Refilled amlodipine-valsartan 5-160 mg 1 tab PO DAILY 90 tabs 3RF levothyroxine 125 mcg PO DAILY 90 tabs 3RF Discontinued enoxaparin Discontinued Reason: Doctor's Order 40 mg (0.4 mL) subcut Q24H 42 days 16.8 mL 0RF hydromorphone Partial Fill upon patient request. Discontinued Reason: Doctor's Order 1 mg (1/2 x 2 mg) PO Q4H 7 days PRN 42 tabs 0RF Pain, Moderate(Pain Scale 4-6)
--- OUTSIDE RECORDS SUMMARY | 2024-07-23 12:28 | XMS_ITS | Clinical Summary ---
Author Organization [facility] it[facility] Address [address] [place] [address] Care Team Providers Care Post Office Markup Clerk Name Role Phone Queta Ambriz MD Primary Care Provider [phone] Medications Medication Sig Dispensed Refills Start Date End Date Status isosorbide mononitrate (IMDUR) 30 mg 24 hr tablet Take 1 tablet (30 mg total) by mouth 1 (one) time each day. Do not crush or chew. 90 each 3 04/30/2024 Active Surgical History Surgery Date Site/Laterality Comments HYSTEROSCOPY 12/18/2007 PROCEDURE: [place] HYSTEROSCOPY BX ENDOMETRIUM&/POLYPC W/WO D&C; COMMENT: D&C, removal endometrial polyp CHOLECYSTECTOMY PROCEDURE: HISTORICAL CHOLECYSTECTOMY SHOULDER SURGERY PROCEDURE: HISTORICAL SHOULDER SURGERY; COMMENT: bilateral rotator cuff TOTAL KNEE ARTHROPLASTY 2016 Right PROCEDURE: CO ARTHRP KNE CONDYLE&PLATU MEDIAL&LAT COMPARTMENTS; COMMENT: Dr. Machado HYSTERECTOMY 2013 PROCEDURE: HISTORICAL HYSTERECTOMY; COMMENT: Dr. Taylor Medical History Medical History Date Comments Apnea DX:Apnea; COMMEN T: nocturnal hypoxia/ nc o2/ Dr. Prakash Depression DX:Depression Dyspepsia DX:Dyspepsia Obesity DX:Obesity Osteoarthritis of both knees DX: Osteoarthritis of both knees; COMMENT: Dr. Machado History of colonoscopy DX:Histor y of colonoscopy; COMMENT: Hx of mammogram DX:Hx of mammogr am; COMMENT: Dr. Parnell Family History Medical History Relation Name Comments Breast cancer Mother onset age 75 Ovarian cancer Mother onset age 75 Stomach cancer Sister 1 Relation Name Status Comments Mother Sister 1 Sister 2 Social History Tobacco Use Types Packs/Day Years Used Date Smoking Tobacco: Former Cigarettes Q uit: 06/18/1995 Smokeless Tobacco: Never Alcohol Use Standard Drinks/Week Comments No 0 (1 standard drink = 0.6 oz pur e alcohol) Sex and Gender Information Value Date Recorded Sex Assigned at Not on file Gender Identity Not on file Sexual Orientation Not on file Obstetrics History Last Filed Vital Signs Vital Sign Reading Time Taken Comments Blood Pressure 159/84 03/21/2024 12:10 PM EDT Si tting L Arm Pulse 85 03/18/2024 8:03 AM EDT Temperature - - Respiratory Rate - - Oxygen Saturation - - Inhaled Oxygen Concentration - - Weight 98.9 kg (218 lb) 03/21/2024 12:10 PM EDT Height 152.4 cm (5') 03/21/2024 12:10 PM EDT Body Mass Index 42.58 03/21/2024 12:10 PM EDT Plan of Treatment Health Maintenance Due Date Last Done Comments DTaP,Tdap,and Td Vaccines (1 - Tdap) 1965 Zoster Vaccines (1 of 2) 1996 Pneumococcal Vaccine: 65+ Ye ars (1 of 1 - PCV) 12/17/2011 RSV Immunization Patients 60 + Years Old (1 - 1-dose 75+ series) 2021 Cholesterol Screening (Lipid Panel) 05/20/2022 Depression Screening 05/20/2022 Falls Risk Assessment 05/20/2022 Hepatitis C Screening 05/20/2022 Medicare Annual Wellness Visit 05/20/2022 Osteoporosis Screening (Bone Density Screening) 05/20/2022 Social Influencers of Health Screening 05/20/2022 Hypertension/CHF/CAD Annual BMP Blood Test 05/25/2022 COVID-19 Vaccine ( - 2023-2 5 season) 2024 Influenza Vaccine (#1) 2024 HIB Vaccines Aged Out No longer eligi ble based on patient's age to complete this topic HPV Vaccines Aged Out No longer eligi ble based on patient's age to complete this topic Hepatitis A Vaccines Aged Out No long er eligible based on patient's age to complete this topic Hepatitis B Vaccines Aged Out No long er eligible based on patient's age to complete this topic IPV Vaccines Aged Out No longer eligi ble based on patient's age to complete this topic MMR Vaccines Aged Out No longer eligi ble based on patient's age to complete this topic Meningococcal ACWY Vaccine Aged Out N o longer eligible based on patient's age to complete this topic RSV Immunization Patients Un tracy 20 months Aged Out No longer eligible b ased on patient's age to complete this topic Varicella Vaccines Aged Out No longer eligible based on patient's age to complete this topic Care Teams Post Office Markup Clerk Relationship Specialty Start Date End Date Queta Ambriz MD PCP - General 03/05/23
== END 2024-07-23 12:08 | disposition home or self-care (01) ==
PROVIDERS: PCP Internal Medicine; Visit Provider Internal Medicine
DX: Z00.00 Encounter for general adult medical examination without abnormal findings (principal); E66.01 Morbid (severe) obesity due to excess calories; I10 Essential (primary) hypertension; Z68.39 Body mass index [BMI] 39.0-39.9, adult; E03.9 Hypothyroidism, unspecified; E78.5 Hyperlipidemia, unspecified; R73.9 Hyperglycemia, unspecified

== ENCOUNTER → 2024-07-23 11:07 | Outpatient (BNVA) | payer MEDICARE, MEDICAID, SELFPAY | PROVIDERS: PCP Internal Medicine; Visit Provider Internal Medicine | DX: Z00.00 Encounter for general adult medical examination without abnormal findings (principal); I10 Essential (primary) hypertension; E03.9 Hypothyroidism, unspecified; E78.5 Hyperlipidemia, unspecified; E66.01 Morbid (severe) obesity due to excess calories; R73.9 Hyperglycemia, unspecified | CPT/HCPCS: 96127; 99397 ==

== ENCOUNTER 2024-08-21 13:20 | Outpatient (AMB) | payer MEDICARE, MEDICAID, SELFPAY ==
--- NOTE | 2024-08-21 13:31 | MHC.OFFVIS ---
Intake Visit Reasons: PO LT quad tendon repair 05/28/24 NE Intake Note: Silvia is a 78 year old female who presents today for a post operative appointment about 2 months s/p Left Quad Tendon Repair 05/28/24 & Left TKA 04/08/24. Patient reports that she is having conitnued pain in the left knee along with tightness. She has trouble with flexion of the knee Allergies oxycodone [From Percocet] Allergy (Severe, Verified 07/23/24 11:16) Itching, swelling of the eyelids Influenza Virus Vaccines Allergy (Verified 07/23/24 11:16) Swelling bees Allergy (Severe, Uncoded 07/23/24 11:16) Anaphylaxis HPI HPI PO LT quad tendon repair 05/28/24 NE: Details: Silvia is a 78 year old female who presents today for a post operative appointment about 2 months s/p Left Quad Tendon Repair 05/28/24 & Left TKA 04/08/24. Patient reports that she is having conitnued pain in the left knee along with tightness. She has trouble with flexion of the knee PFSH Medical History Macular degeneration of left eye Walker as ambulation aid Osteoarthritis TENZIN (obstructive sleep apnea) Restrictive lung disease Hypothyroid Osteoarthritis of left knee Restrictive lung disease Morbid obesity Surgical History History of total left knee replacement (TKR) Hx of basal cell carcinoma excision Hx laparoscopic cholecystectomy Hx of hysterectomy History of surgery of uterus History of shoulder surgery Hx of total knee replacement Hx of cholecystectomy Family History Father No problems noted. Mother Breast cancer Lung cancer Sister Breast cancer Social History Household Members: Spouse Caregiver staying overnight: No Housing: Apartment Are you a primary child care director to a significant other at home: No Do you presently have visiting nurse or other home services: No 75 years or older and lives alone: No Patient Tobacco Use Status: Former Tobacco user Tobacco use type: Cigarette e-Cigarette/Vaping Use: Never Used service: No Current occupational status: retired Cognitive needs: No Hearing needs: No Vision needs: Yes Physical Exam Extrem Other: inc c/d/i quad intact with no defect 10-120 Assessment & Plan Assessment & Plan (1) Injury of quadriceps muscle: Code(s): S76.109A - Unspecified injury of unspecified quadriceps muscle, fascia and tendon, initial encounter Category: Medical Plan: quad injury after TKA. Improving but still with 5-10 deg lag. Is overdoing open chain exercises. instructed in isometrics. Continue strengthening. f/u 2 mo. (2) Status post total knee replacement, left: Code(s): Z96.652 - Presence of left artificial knee joint Category: Surgical Plan: Coding Level of Care Code Global (89389) Diagnoses Injury of quadriceps muscle S76.109A Status post total knee replacement, left Z96.652
--- OUTSIDE RECORDS SUMMARY | 2024-08-21 16:10 | XMS_ITS | Clinical Summary ---
Author Organization [facility] [employer] [facility] ity Address [address] [place] [address] Care Team Providers Care Oxygen Equipment Aide Name Role Phone Queta Ambriz MD Primary Care Provider [phone] Medications isosorbide mononitrate (IMDUR) 30 mg 24 hr tablet Take 1 tablet (30 mg total) by mouth 1 (one) time each day. Do not crush or chew. 90 each 3 04/30/2024 Active Surgical History Surgery Date Site/Laterality Comments HYSTEROSCOPY 12/18/2007 PROCEDURE: [place] HYSTEROSCOPY BX ENDOMETRIUM&/POLYPC W/WO D&C; COMMENT: D&C, removal endometrial polyp CHOLECYSTECTOMY PROCEDURE: HISTORICAL CHOLECYSTECTOMY SHOULDER SURGERY PROCEDURE: HISTORICAL SHOULDER SURGERY; COMMENT: bilateral rotator cuff TOTAL KNEE ARTHROPLASTY 2016 Right PROCEDURE: [place] ARTHRP KNE CONDYLE&PLATU MEDIAL&LAT COMPARTMENTS; COMMENT: Dr. [...] drink = 0.6 oz pur e alcohol) Comments Unknown Sex and Gender Information Value Date Recorded Sex Assigned at Not on file Legal Sex Female 6:51 PM EST Gender Identity Not on file Sexual Orientation [...] DTaP,Tdap,and Td Vaccines (1 - Tdap) 1964 Pneumococcal Vaccine: 50+ Ye ars (1 of 1 - PCV) 1996 Zoster Vaccines (1 of 2) 1996 RSV Immunization Patients 60 + Years Old [...] patient's age to complete this topic Meningococcal B Vacine Aged Out No lo nger eligible based on patient's age to complete this topic RSV Immunization Patients Un tracy 20 months Aged Out No longer eligible b ased on patient's age to complete this topic Varicella Vaccines Aged Out No longer eligible based on patient's age to complete this topic Care Teams Oxygen Equipment Aide Relationship Specialty Start Date End Date Queta Ambriz MD PCP - General 03/05/23
== END 2024-08-21 13:54 | disposition home or self-care (01) ==
PROVIDERS: PCP Internal Medicine; Visit Provider Orthopaedic Surgery
DX: S76.109A Unspecified injury of unspecified quadriceps muscle, fascia and tendon, initial encounter (principal); Z96.652 Presence of left artificial knee joint
CPT/HCPCS: 99024

== ENCOUNTER → 2024-08-21 13:20 | Outpatient (BNVA) | payer MEDICARE, MEDICAID, SELFPAY | PROVIDERS: PCP Internal Medicine; Visit Provider Orthopaedic Surgery | DX: S76.109D Unspecified injury of unspecified quadriceps muscle, fascia and tendon, subsequent encounter (principal); Z96.652 Presence of left artificial knee joint | CPT/HCPCS: 99212 ==

== ENCOUNTER 2024-09-03 10:11 | Outpatient (AMB) | payer MEDICARE, MEDICAID, SELFPAY ==
[2024-09-03 10:25] VITALS: BP 130/64; PULSE 78; O2SAT 97; BMI 39.6
--- NOTE | 2024-09-03 10:25 | MHC.OFFVIS ---
Vital Signs 09/03/24 10:25 Height 5 ft Weight 202 lb 13.204 oz BMI 39.6 BP 130/64 Blood Pressure Location Lt brachial Position Sitting Pulse 78 Pulse Source Pulse Oximeter Pulse Oximetry (%) 97 Oxygen Delivery Method Room Air Intake Visit Reasons: Obstructive sleep apnea Intake Note: pt is here for follow up and feeling okay , knee still giving her trouble, sleeps well Forest Scientist Required: No Allergies oxycodone [From Percocet] Allergy (Severe, Verified 09/03/24 10:29) Itching, swelling of the eyelids Influenza Virus Vaccines Allergy (Verified 09/03/24 10:29) Swelling bees Allergy (Severe, Uncoded 09/03/24 10:29) Anaphylaxis HPI HPI Obstructive sleep apnea: Details: SHAMIKA IS 78 YEARS OLD FEMALE, HAD A SLEEP STUDY IN 2016. AND WAS DIAGNOSED TO HAVE OBSTRUCTIVE SLEEP APNEA. SHE DID USE CPAP AT NIGHT UP UNTIL 2019 AND THEN STOPPED USING IT. SHE CLAIMS THAT SHE SLEEPS GOOD WITHOUT THE CPAP. SHE DENIES ANY DAYTIME SLEEPINESS SHE WAS FOUND TO HAVE NOCTURNAL HYPOXEMIA, AND ADVISED TO USE O2 2 L/MINUTE. SHE HAS USED O2 ONLY OFF AND ON, WITH HER 'S POC,. NOW SHE HAS STOPPED USING THE OXYGEN. SHE CLAIMS THAT SHE SLEEPS GOOD AND SHE IS NOT WORRIED ABOUT HER OXYGEN ANYMORE. SHE DENIES COUGH WHEEZING OR SHORTNESS OF BREATH AT REST. HER WALKING IS SLOW DUE TO ARTHRITIS OF THE KNEES. SHE USES WALKER . SHE DOES NOT GET SHORT OF BREATH WHEN WALKING. 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 SHE HAS ALBUTEROL TO USE P.R.N. BUT HARDLY NEEDS TO USE IT. [facility] Medical History Macular degeneration of left eye Walker as ambulation aid Osteoarthritis TENZIN (obstructive sleep apnea) Restrictive lung disease Hypothyroid Osteoarthritis of left knee Restrictive lung disease Morbid obesity Surgical History History of total left knee replacement (TKR) Hx of basal cell carcinoma excision Hx laparoscopic cholecystectomy Hx of hysterectomy History of surgery of uterus History of shoulder surgery Hx of total knee replacement Hx of cholecystectomy Family History Father No problems noted. Mother Breast cancer Lung cancer Sister Breast cancer Social History Household Members: Spouse Caregiver staying overnight: No Housing: Apartment Are you a primary home day care provider to a significant other at home: No Do you presently have visiting nurse or other home services: No 75 years or older and lives alone: No Patient Tobacco Use Status: Former Tobacco user Tobacco use type: Cigarette e-Cigarette/Vaping Use: Never Used service: No Current occupational status: retired Cognitive needs: No Hearing needs: No Vision needs: Yes Review of Systems Const All systems reviewed & are unremarkable except as noted in HPI and below Eyes Reports no additional complaints ENT Reports no additional complaints and Denies nasal obstruction (Has the some kind of blockage of the right nostril, chronically ) Card Denies chest pain, Denies irregular heart rhythm, Denies leg edema and Reports dyspnea on exertion (Mild to moderate) Resp Denies cough, Reports dyspnea on exertion (Mild to moderate) and Denies wheezing GI Reports no additional complaints Reports no additional complaints Musc Reports arthralgias (Knees and shoulders) Skin/Breast Reports system reviewed and no additional complaints, except as documented Neuro Reports no additional complaints Psych Reports no additional complaints Endo Reports other (Hypothyroidism being treated with med) Lorenzo/Lymph Reports no additional complaints Aller/Immun Reports no additional complaints and Denies wheezing Physical Exam Vital Signs: Last Vital Signs Pulse 78 09/03/24 10:25 BP 130/64 09/03/24 10:25 Pulse Ox 97 09/03/24 10:25 Oxygen Delivery Method Room Air 09/03/24 10:25 BMI result Body Mass Index 39.6 Patient is grossly obese, with a round face. Const General: comfortable, no acute distress, alert and awake Orientation/consciousness: patient oriented x3 HEENT Head: Yes normal to inspection General nose exam: No nasal polyps present, mucous membranes and turbinates abnormal (There is moderate hypertrophy of the middle turbinate on the right side) and No nasal discharge present Face and sinus: Yes sinuses nontender Mouth: oropharynx normal Throat: Yes posterior oropharynx normal Eyes General: appearance normal, both eyes and all related structures Neck Neck: Yes normal visual inspection, Yes no lymphadenopathy, Yes trachea midline and Yes no JVD Thyroid: Thyroid normal Chest Chest palpation & inspection: normal inspection of the chest, normal palpation of entire chest wall and no tenderness Resp Other: Percussion note not perceptible because of thick chest wall. Breath sounds are as moderately distant especially over the bases . But no wheezes rhonchi or crepitations are heard. Cardio Palpation: normal PMI Rate: regular rate Rhythm: regular rhythm Heart sounds: no gallops and no murmurs GI Palpation (GI): Soft to palpation, nontender, No hepatosplenomegaly present and no masses Auscultation: normal bowel sounds Back/Spine/Pelvis Thoracic/Lumbar Spine: thoracic and lumbar spine normal to inspection and thoraco-lumbar ROM limited Skin General skin exam: no rashes or lesions noted Neuro General: patient oriented x3 and no focal motor deficits Cranial nerves: Yes CN's II-XII intact bilaterally Extrem General: Yes normal to inspection, Yes no clubbing, cyanosis or edema and Yes no calf tenderness Psych Appearance: grossly normal and well kempt Speech and movement: Normal speech and movement present Assessment & Plan Assessment & Plan (1) Morbid obesity: Comment: BMI= 39.6 , PATIENT IS AWARE OF BEING OVERWEIGHT, SHE IS NOT ABLE TO LOSE MUCH WEIGHT. Code(s): E66.01 - Morbid (severe) obesity due to excess calories Category: Medical Plan: TALKED TO HER ABOUT THE WEIGHT BUT SHE HAS NO WEIGHT TO LOSE, AND SHE IS CONTENT WITH HER CURRENT CONDITION. (2) Restrictive lung disease: Comment: BECAUSE OF HER MORBID OBESITY SHE DOES HAVE SIGNIFICANT RESTRICTIVE LUNG DISEASE. BUT DENIES ANY RESPIRATORY ISSUES. SHE HAS USED THE INCENTIVE SPIROMETRY DEVICE IN THE PAST BUT DOES NOT USE IT NOW. Code(s): J98.4 - Other disorders of lung Category: Medical Plan: ADVISED TO KEEP HER WEIGHT IN CONTROL. ADVISE THAT SHE SHOULD DO DEEP BREATHING EXERCISES 3 TIMES A DAY (3) Sleep apnea: Comment: PATIENT DOES HAVE HISTORY OF SLEEP APNEA DOCUMENTED AFTER HER KNEE SURGERY IN 2016, AND SUBSEQUENTLY WITH HER SLEEP STUDY. USED CPAP AND O2 AT NIGHT BETWEEN 2016 TO 2019, THEN SHE STOPPED USING AND RETURNED THE CPAP WELL OXYGEN EQUIPMENT. PATIENT CLAIMS THAT SHE DOES SLEEP FAIRLY GOOD . SHE DOES HAVE NOCTURNAL HYPOXEMIA, HAS USED O2 2 L/MINUTE IN THE PAST . BUT THEN GAVE BACK HER OXYGEN CONCENTRATOR ALONG WITH THE CPAP DEVICE . SHE WAS RECHECKED WITH OVERNIGHT OXIMETRY RECORDING AND DOES HAVE NOCTURNAL HYPOXEMIA. Code(s): G47.30 - Sleep apnea, unspecified Category: Medical Plan: THIS PATIENT WAS USING OXYGEN AT NIGHT USING HER 'S POC. HOWEVER NOW SHE HAS GIVEN UP ON USING THE OXYGEN AND SAYS, SHE DOES NOT NEED TO USE THE OXYGEN. SHE IS OKAY (4) Nocturnal hypoxia: Comment: NOTED ABOVE UNDER SLEEP APNEA. PATIENT DID USE OXYGEN AT NIGHT BUT SHE HAS STOPPED DOING. Code(s): G47.34 - Idiopathic sleep related nonobstructive alveolar hypoventilation Category: Medical Plan: PATIENT STATES THAT SHE DOES NOT NEED OXYGEN SHE FEELS OKAY AND SHE SLEEPS WELL. SHE DOES NOT WANT US TO DO OVERNIGHT OXIMETRY RECORDING. Coding Level of Care Code Est Pt Level 3 (66127) Diagnoses Morbid obesity E66.01 Restrictive lung disease J98.4 Sleep apnea G47.30 Nocturnal hypoxia G47.34
--- OUTSIDE RECORDS SUMMARY | 2024-09-03 11:50 | XMS_ITS | Clinical Summary ---
Author Organization [email or web address] ity Address [address] [place] [address] Care Team Providers Care Gas Leak Inspector Name Role Phone Queta Ambriz MD Primary Care Provider [phone] Medications isosorbide mononitrate (IMDUR) 30 mg 24 hr tablet Take 1 tablet (30 mg total) by mouth 1 (one) time each day. Do not crush or chew. 90 each 3 04/30/2024 Active Surgical History Surgery Date Site/Laterality Comments HYSTEROSCOPY 12/18/2007 PROCEDURE: [place] HYSTEROSCOPY BX ENDOMETRIUM&/POLYPC W/WO D&C; COMMENT: D&C, removal endometrial polyp CHOLECYSTECTOMY PROCEDURE: HISTORICAL CHOLECYSTECTOMY SHOULDER SURGERY PROCEDURE: HISTORICAL SHOULDER SURGERY; COMMENT: bilateral rotator cuff TOTAL KNEE ARTHROPLASTY 2016 Right PROCEDURE: [place] ARTHRP KNE CONDYLE&PLATU MEDIAL&LAT COMPARTMENTS; COMMENT: Dr. [...] age to complete this topic Care Teams Gas Leak Inspector Relationship Specialty Start Date End Date Queta Ambriz MD PCP - General 03/05/23
== END 2024-09-03 11:08 | disposition home or self-care (01) ==
LOC: HO.HPS 10:11
PROVIDERS: PCP Internal Medicine; Visit Provider Internal Medicine
DX: E66.01 Morbid (severe) obesity due to excess calories (principal); J98.4 Other disorders of lung; G47.30 Sleep apnea, unspecified; G47.34 Idiopathic sleep related nonobstructive alveolar hypoventilation
CPT/HCPCS: 99213

== ENCOUNTER → 2024-09-03 10:11 | Outpatient (BNVA) | payer MEDICARE, MEDICAID, SELFPAY | PROVIDERS: PCP Internal Medicine; Visit Provider Internal Medicine | DX: G47.30 Sleep apnea, unspecified (principal); G47.34 Idiopathic sleep related nonobstructive alveolar hypoventilation; J98.4 Other disorders of lung; E66.01 Morbid (severe) obesity due to excess calories | CPT/HCPCS: 99212 ==

== ENCOUNTER 2024-10-16 14:22 | Outpatient (AMB) | payer MEDICARE, MEDICAID, SELFPAY ==
--- NOTE | 2024-10-16 14:24 | A.OFFVIS_ITS ---
Intake Visit Reasons: PO LT quad tendon repair 05/28/24 NE Intake Note: greg is a 78 year old female who presents today for a post operative appointment about 6 months s/p Left Quad Tendon Repair 05/28/24 & Left TKA 04/08/24. Patient continues to have pain in her knee and she notices that her knee locks when she is getting up from a seated position. Allergies oxycodone [From Percocet] Allergy (Severe, Verified 10/16/24 14:29) Itching, swelling of the eyelids Influenza Virus Vaccines Allergy (Verified 10/16/24 14:29) Swelling bees Allergy (Severe, Uncoded 09/03/24 10:29) Anaphylaxis HPI HPI PO LT quad tendon repair 05/28/24 NE: Details: Eli is 6 months status post left knee replacement. Her surgery was complicated by a partial quad tear. This was treated surgically and she has full extension of her left leg but continues to describe pain and occasional swelling. She has not been dizzy ask about physical therapy as she thinks that may have been part of the initial problem. [facility] Medical History Macular degeneration of left eye Walker as ambulation aid Osteoarthritis TENZIN (obstructive sleep apnea) Restrictive lung disease Hypothyroid Osteoarthritis of left knee Restrictive lung disease Morbid obesity Surgical History History of total left knee replacement (TKR) Hx of basal cell carcinoma excision Hx laparoscopic cholecystectomy Hx of hysterectomy History of surgery of uterus History of shoulder surgery Hx of total knee replacement Hx of cholecystectomy Family History Father No problems noted. Mother Breast cancer Lung cancer Sister Breast cancer Social History Household Members: Spouse Caregiver staying overnight: No Housing: Apartment Are you a primary toddler caregiver to a significant other at home: No Do you presently have visiting nurse or other home services: No 75 years or older and lives alone: No Patient Tobacco Use Status: Former Tobacco user Tobacco use type: Cigarette e-Cigarette/Vaping Use: Never Used service: No Current occupational status: retired Cognitive needs: No Hearing needs: No Vision needs: Yes Physical Exam Extrem Other: On exam Eli has full range motion of the left knee. She can straight leg raise with no lag. There is a very small defect in the superomedial knee at the quad insertion but this is very mild and I can palpate a intact tendon. Incision is clean and dry. Assessment & Plan Assessment & Plan (1) Injury of quadriceps muscle: Code(s): S76.109A - Unspecified injury of unspecified quadriceps muscle, fascia and tendon, initial encounter Category: Medical Plan: Left quad injury that was treated surgically and appears intact but she still has pain in her knee. I strongly recommend that she do physical therapy. I think it would benefit her tremendously as her primary complaint seems to be related to weakness and discomfort. (2) Status post total knee replacement, left: Code(s): Z96.652 - Presence of left artificial knee joint Category: Surgical Plan: Knee replacement is stable. She has good motion. Coding Level of Care Code Est Pt Level 3 (80015) Diagnoses Injury of quadriceps muscle S76.109A Status post total knee replacement, left Z96.652
--- OUTSIDE RECORDS SUMMARY | 2024-10-16 16:29 | XMS_ITS | Clinical Summary ---
Author Organization [facility] ity Address [address] [place] [address] Care Team Providers Care Cot Assembler Name Role Phone Queta Ambriz MD Primary Care Provider [phone] Medications isosorbide mononitrate (IMDUR) 30 mg 24 hr tablet Take 1 tablet (30 mg total) by mouth 1 (one) time each day. Do not crush or chew. 90 each 3 04/30/2024 Active Surgical History Surgery Date Site/Laterality Comments HYSTEROSCOPY 12/18/2007 PROCEDURE: [place] HYSTEROSCOPY BX ENDOMETRIUM&/POLYPC W/WO D&C; COMMENT: D&C, removal endometrial polyp CHOLECYSTECTOMY PROCEDURE: HISTORICAL CHOLECYSTECTOMY SHOULDER SURGERY PROCEDURE: HISTORICAL SHOULDER SURGERY; COMMENT: bilateral rotator cuff TOTAL KNEE ARTHROPLASTY 2016 Right PROCEDURE: [place] ARTHRP KNE CONDYLE&PLATU MEDIAL&LAT COMPARTMENTS; COMMENT: Dr. [...] Vaccines (1 of 2) 1996 RSV Immunization Adult Patie nts (1 - 1-dose 75+ series) 2021 Cholesterol Screening (Lipid Panel) 05/20/2022 Depression Screening 05/20/2022 Falls Risk Assessment 05/20/2022 Hepatitis C Screening 05/20/2022 Medicare Annual Wellness Visit 05/20/2022 Osteoporosis Screening (Bone Density Screening) 05/20/2022 Social Influencers of Health Screening 05/20/2022 Hypertension/CHF/CAD Annual BMP Blood Test 05/25/2022 COVID-19 Vaccine ( - 2023-2 5 season) 2024 Influenza Vaccine (Season Ended) 2025 HIB Vaccines Aged Out No longer eligi [...] age to complete this topic Meningococcal B Vaccine Aged Out No l onger eligible based on patient's age to complete this topic RSV Immunization Patients Un tracy 20 months Aged Out No longer eligible b ased on patient's age to complete this topic Varicella Vaccines Aged Out No longer eligible based on patient's age to complete this topic Care Teams Cot Assembler Relationship Specialty Start Date End Date Queta Ambriz MD PCP - General 03/05/23
== END 2024-10-16 15:25 | disposition home or self-care (01) ==
LOC: HO.HOS 14:23
PROVIDERS: PCP Internal Medicine; Visit Provider Orthopaedic Surgery
DX: S76.102D Unspecified injury of left quadriceps muscle, fascia and tendon, subsequent encounter (principal); Z96.652 Presence of left artificial knee joint
CPT/HCPCS: 99213

== ENCOUNTER → 2024-10-16 14:22 | Outpatient (BNVA) | payer MEDICARE, MEDICAID, SELFPAY | PROVIDERS: PCP Internal Medicine; Visit Provider Orthopaedic Surgery | DX: S76.109D Unspecified injury of unspecified quadriceps muscle, fascia and tendon, subsequent encounter (principal); Z96.652 Presence of left artificial knee joint | CPT/HCPCS: 99212 ==

== ENCOUNTER 2025-01-17 09:32 | Outpatient (REF) | payer MEDICARE, OTHER, SELFPAY ==
[2025-01-17 11:12] LABS: MANUAL DIFF FLAG NO
[2025-01-17 11:16] LABS: Hematocrit 41.0 % (37.0-47.0); Hemoglobin 13.6 g/dl (12.0-16.0); Imm Gran Abs Auto 0.03 X10*3/uL (0.00-0.03); Imm Gran Pct Auto 0.4 % (0.0-0.4); Lymphocytes Absolute Auto 1.9 X10*3/uL (1.2-4.9); Mean Corpuscular HGB Conc 33.2 g/dl (31.0-35.0); Mean Corpuscular Hemoglobin 29.1 pg (27.0-33.0); Mean Corpuscular Volume 87.6 fL (80.0-98.0); NRBC Abs Auto 0.000 X10*3/uL (0.0-0.012); NRBC Pct Auto 0.0 /100WBC (0.0-0.2); Platelet Count 341 X10*3/uL (160-400); Red Blood Count 4.68 X10*6/uL (4.20-5.50); White Blood Count 7.5 X10*3/uL (4.8-10.8)
[2025-01-17 11:26] LABS: Hemoglobin A1C 120.2003 umol/L; Total Hemoglobin (HGBA1C) 3653.8361 umol/L
[2025-01-17 12:18] LABS: Alanine Aminotransferase 26 U/L (0-31); Albumin Level 4.4 g/dL (3.5-5.0); Alkaline Phosphatase 78 U/L (39-117); Anion Gap 14 (12-20); Aspartate Amino Transferase 28 U/L (5-31); Blood Urea Nitrogen 20 mg/dL (9-16); Calcium 10.5 mg/dL (8.4-10.2); Carbon Dioxide 26 mmol/L (22-29); Chloride 107 mmol/L (96-108); Cholesterol 195 mg/dL (<200); Estimated Glomerular Filt Rate > 60; HDL Cholesterol 63 mg/dL (>40); Potassium 4.0 mmol/L (3.3-5.1); Sodium 143 mmol/L (135-145); Total Protein 7.5 g/dL (6.5-8.0); Triglycerides 58 mg/dL (<150)
[2025-01-17 13:20] LABS: Free T4 (Free Thyroxine) 1.27 ng/dL (0.71-1.85)
== END 2025-01-17 09:33 | disposition home or self-care (01) ==
LOC: HO.HMGCLDS 09:32
PROVIDERS: PCP Internal Medicine; Visit Provider Internal Medicine
DX: I10 Essential (primary) hypertension (principal); E78.5 Hyperlipidemia, unspecified; E03.9 Hypothyroidism, unspecified; E66.01 Morbid (severe) obesity due to excess calories; R73.9 Hyperglycemia, unspecified
CPT/HCPCS: 36415; 80053; 80061; 83036; 84439; 84443; 85025

== ENCOUNTER 2025-01-21 12:57 | Outpatient (REF) | payer MEDICARE, OTHER, SELFPAY ==
--- NOTE | ~2025-01-21 | XR_ITS ---
EXAMINATION: XR BILATERAL HIPS WITH AP PELVIS CLINICAL INFORMATION: M25.551 - Pain in right hip COMPARISON: None available. TECHNIQUE: AP view of the pelvis and single views of each hip were obtained. FINDINGS: No fracture. Hip joint spaces are maintained. Alignment is anatomic. Sacroiliac joints and pubic symphysis are normal. No abnormal soft tissue calcifications. XR/XR hips JOANNA min 3V IMPRESSION: Normal pelvis and bilateral hips. Electronically signed by: Toan De Paz MD 01/22/2025 07:17 AM EDT
== END 2025-01-21 12:58 | disposition home or self-care (01) ==
LOC: HO.HMGCX 12:57
PROVIDERS: PCP Internal Medicine; Visit Provider Internal Medicine
DX: M25.551 Pain in right hip (principal); M25.552 Pain in left hip; R49.0 Dysphonia; E03.9 Hypothyroidism, unspecified; E78.5 Hyperlipidemia, unspecified; I10 Essential (primary) hypertension
CPT/HCPCS: 73522; 96127; 99212

== ENCOUNTER 2025-01-21 12:57 | Outpatient (AMB) | payer MEDICARE, MEDICAID, SELFPAY ==
--- NOTE | 2025-01-21 13:03 | MHC.PC.OV ---
Vital Signs 01/21/25 13:04 Height 5 ft Weight 211 lb BMI 41.2 BP 130/72 Blood Pressure Location Lt brachial Position Sitting Respiration 16 Pulse 84 Pulse Source Pulse Oximeter Temp 98.1 F Temp Source Oral Pulse Oximetry (%) 97 Oxygen Delivery Method Room Air Intake Visit Reasons: 6 months follow up Industrial Yard Brake Coupler Required: No Accompanied by: Self / Same As Patient Allergies oxycodone (From Percocet) Allergy (Severe, Verified 01/21/25 13:06) Itching, swelling of the eyelids Influenza Virus Vaccines Allergy (Verified 01/21/25 13:06) Swelling bees Allergy (Severe, Uncoded 09/03/24 10:29) Anaphylaxis Medication List - Last Reconciled 01/21/25 by Queta Ambriz MD acetaminophen 650 mg (2 x 325 mg) PO Q6H PRN 30 days amlodipine-valsartan 5-160 mg 1 tab PO DAILY docusate sodium 100 mg PO BID ibuprofen 600 mg PO Q8H PRN levothyroxine 125 mcg PO DAILY walker Folding Front wheeled walker Tobacco use date assessed: 01/21/25 Fall risk assessment: No Falls in past year Last assessed Fall Risk: 01/21/25 Dental Screening Dental Screen Date: 01/21/25 Did you have a dental visit in the last 12 months?: Yes Did you have a dental problem in the last 6 months where you did not have access to dental care?: No Was dental information given to patient?: Patient has dentist HPI 6 months follow up HPI Details Patient presents for the follow-up on hypertension hypothyroidism controlled on current medications. She complains of persistent left knee pain since her knee surgery. She tried physical therapy has been ambulating with a walker. Patient has been taking ibuprofen on and off with a good pain relief. She is established with Dr. Yu. Patient complains of hoarseness for 3 weeks denies sore throat postnasal drip GERD symptoms. She would like to check her thyroid ultrasound because she is concerned about recurrent thyroid nodules. [facility] Medical History (Updated 01/21/25 @ 13:50 by Queta Ambriz MD) Macular degeneration of left eye Walker as ambulation aid Osteoarthritis TENZIN (obstructive sleep apnea) Restrictive lung disease Hypothyroid Osteoarthritis of left knee Restrictive lung disease Morbid obesity Surgical History History of total left knee replacement (TKR) Hx of basal cell carcinoma excision Hx laparoscopic cholecystectomy Hx of hysterectomy History of surgery of uterus History of shoulder surgery Hx of total knee replacement Hx of cholecystectomy Family History Father No problems noted. Mother Breast cancer Lung cancer Sister Breast cancer Social History Household Members: Spouse Caregiver staying overnight: No Housing: Apartment Are you a primary child care development specialist to a significant other at home: No Do you presently have visiting nurse or other home services: No 75 years or older and lives alone: No Patient Tobacco Use Status: Former Tobacco user Tobacco use type: Cigarette e-Cigarette/Vaping Use: Never Used service: No Current occupational status: retired Cognitive needs: No Hearing needs: No Vision needs: Yes Questionnaire PHQ-9 Over the last 2 weeks, how often have you been bothered by any of the following problems? 1. Little interest or pleasure in doing things: not at all 2. Feeling down, depressed, or hopeless: several days 3. Trouble falling or staying asleep, or sleeping too much: not at all 4. Feeling tired or having little energy: several days 5. Poor appetite or overeating: not at all 6. Feeling bad about yourself - or that you are a failure or have let yourself or your family down: several days 7. Trouble concentrating on things, such as reading the newspaper or watching television: not at all 8. Moving or speaking so slowly that other people could have noticed. Or the opposite - being so fidgety or restless that you have been moving around a lot more than usual: not at all 9. Thoughts that you would be better off or of hurting yourself in some way: not at all Total score: 3 Depression Screening Interpretation: Negative Depression Screening Done: Yes 77334 - PHQ-9 Billing: Yes Source: Developed by Drs. Kulwinder Carcamo, Modesta Capellan, Kory Robert and colleagues, with an educational clara from [employer]. Thrive Questionnaire Date Thrive assessed: 07/23/24 I am a: Patient ZACH-7 AMB Questionnaire ZACH-7 Date ZACH - 7 assessed: 07/23/24 Feeling nervous, anxious, or on edge: 0 = Not at all Not being able to stop or control worryin = Not at all Worrying too much about different things: 0 = Not at all Trouble relaxin = Not at all Being so restless that it is hard to sit still: 0 = Not at all Becoming easily annoyed or irritable: 0 = Not at all Feeling afraid as if something awful might happen: 0 = Not at all Total ZACH-7 score (0-4 normal; 5-9 mild; 10-14 moderate; 15-21 severe): 0 Source: Developed by Drs. Kulwinder Carcamo, Modesta Capellan, Kory Robert and colleagues, with an educational clara from [employer]. ZAHC-7 Assessment Billing ZCAH-7 Assessment Tool: ZACH-7 Assessment 68354 Review of Systems Const All systems reviewed & are unremarkable except as noted in HPI and below ENT Reports no additional complaints Card Reports no additional complaints Resp Reports no additional complaints GI Reports no additional complaints Reports no additional complaints Physical exam (Primary Care) Vital Signs: Last Vital Signs Temp 98.1 F 01/21/25 13:04 Pulse 84 01/21/25 13:04 Resp 16 01/21/25 13:04 BP 130/72 01/21/25 13:04 Pulse Ox 97 01/21/25 13:04 Oxygen Delivery Method Room Air 01/21/25 13:04 BMI result Body Mass Index 41.2 Tobacco/Smoking Status: Tobacco use Status Tobacco use date assessed 01/21/25 01/21/25 13:11 Patient Tobacco Use Status Former Tobacco user 01/21/25 13:03 Tobacco use type Cigarette 01/21/25 13:03 e-Cigarette/Vaping Use Never Used 01/21/25 13:03 PHQ-9: PHQ-9 Score PHQ-9: Total score 3 01/21/25 13:11 Depression Screening Interpretation: Negative Thrive Assessment: Date of Thrive Assessment Date Thrive assessed 07/23/24 01/21/25 13:03 Const General: no acute distress HENMT Head: Yes normal to inspection Mouth: Normal oral and palatal mucosa present Throat: Yes posterior oropharynx normal Neck Neck: Yes no lymphadenopathy and Yes supple Resp Effort & Inspection: normal respiratory effort Auscultation: clear to auscultation bilaterally Cardio Rhythm: regular rhythm Heart sounds: S1 normal heart sound present and S2 normal heart sound present GI Inspection: Yes normal to inspection Palpation (GI): Soft to palpation Percussion: Yes normal to percussion Auscultation: normal bowel sounds Coding Level of Care Code Est Pt Level 4 (31450) Complex EM visit Add On G2211 Diagnoses Hoarseness R49.0 Hypothyroid E03.9 Bilateral hip pain M25.551; M25.552 Hyperlipidemia E78.5 HTN (hypertension) I10 Additional Codes ZACH-7 Assessment Billing - ZACH-7 Assessment Tool: ZACH-7 Assessment 82299 ([id number]) PHQ-9 - 44889 - PHQ-9 Billing: Yes ([id number]) Assessment & Plan Assessment & Plan (1) Hoarseness: Code(s): R49.0 - Dysphonia Category: Medical Plan: Obtain thyroid ultrasound to evaluate for nodules (2) Hypothyroid: Code(s): E03.9 - Hypothyroidism, unspecified Category: Medical Plan: Continue levothyroxine (3) Bilateral hip pain: Code(s): M25.551 - Pain in right hip; M25.552 - Pain in left hip Category: Medical Plan: For chronic bilateral hip pain obtain hip x-rays (4) Hyperlipidemia: Comment: Patient refuses medications Code(s): E78.5 - Hyperlipidemia, unspecified Category: Medical Plan: Continue low-cholesterol diet (5) HTN (hypertension): Code(s): I10 - Essential (primary) hypertension Category: Medical Plan: Continue current medications follow-up in 6 months with a fasting labs before Orders: Orders US thyroid Today R49.0 - Dysphonia Comprehensive [place]. Panel Fast 6 Months E03.9 - Hypothyroidism, unspecified XR hips JOANNA min 3V Today M25.551 - Pain in right hip, M25.552 - Pain in left hip Complete Blood Count Auto Diff 6 Months E03.9 - Hypothyroidism, unspecified TSH reflex Free T4 6 Months E03.9 - Hypothyroidism, unspecified Medications: New ibuprofen 600 mg PO Q8H PRN 30 tabs 0RF pain Refilled amlodipine-valsartan 5-160 mg 1 tab PO DAILY 90 tabs 3RF levothyroxine 125 mcg PO DAILY 90 tabs 3RF
[2025-01-21 13:04] VITALS: BP 130/72; PULSE 84; RESP 16; TEMP 36.7; O2SAT 97; BMI 41.2
--- OUTSIDE RECORDS SUMMARY | 2025-01-21 13:30 | XMS_ITS ---
Author Name [facility] Organization Unknown Care Team Organization Name Specialty Phone Email Start Date End Da te [facility] Termed, PROVIDER Primary Care 04/25/202201/16
--- OUTSIDE RECORDS SUMMARY | 2025-01-21 13:30 | XMS_ITS | Clinical Summary ---
Author Organization [facility] [employer] [facility] ity Address [address] [place] [address] Care Team Providers Care Erco Machine Operator Name Role Phone Queta Ambriz MD Primary Care Provider [phone] Medications isosorbide mononitrate (IMDUR) 30 mg 24 hr tablet Take 1 tablet (30 mg total) by mouth 1 (one) time each day. Do not crush or chew. 90 each 3 04/30/2024 Active Surgical History Surgery Date Site/Laterality Comments HYSTEROSCOPY 12/18/2007 PROCEDURE: CT HYSTEROSCOPY BX ENDOMETRIUM&/POLYPC W/WO D&C; COMMENT: D&C, removal endometrial polyp CHOLECYSTECTOMY PROCEDURE: HISTORICAL CHOLECYSTECTOMY SHOULDER SURGERY PROCEDURE: HISTORICAL SHOULDER SURGERY; COMMENT: bilateral rotator cuff TOTAL KNEE ARTHROPLASTY 2016 Right PROCEDURE: CT ARTHRP KNE CONDYLE&PLATU MEDIAL&LAT COMPARTMENTS; COMMENT: Dr. [...] series) 2021 Cholesterol Screening (Lipid Panel) 05/20/2022 Falls Risk Assessment 05/20/2022 Hepatitis C Screening 05/20/2022 Medicare Annual Wellness Visit 05/20/2022 Osteoporosis Screening (Bone Density Screening) 05/20/2022 Social Influencers of Health Screening 05/20/2022 Hypertension/CHF/CAD Annual BMP Blood Test 05/25/2022 COVID-19 Vaccine ( - 2023-2 5 season) 2024 Depression Screening 06/18/2024 Influenza Vaccine (#1) 2025 HIB Vaccines Aged Out No longer [...] age to complete this topic Care Teams Erco Machine Operator Relationship Specialty Start Date End Date Queta Ambriz MD PCP - General 03/05/23
== END 2025-01-21 13:53 | disposition home or self-care (01) ==
LOC: HO.HMCC 12:57
PROVIDERS: PCP Internal Medicine; Visit Provider Internal Medicine
DX: R49.0 Dysphonia (principal); E03.9 Hypothyroidism, unspecified; M25.551 Pain in right hip; M25.552 Pain in left hip; E78.5 Hyperlipidemia, unspecified; I10 Essential (primary) hypertension

== ENCOUNTER → 2025-01-21 14:05 | Outpatient (BNV) | payer MEDICARE, MEDICAID, SELFPAY | PROVIDERS: PCP Internal Medicine; Visit Provider Radiology Diagnostic Radiology | DX: M25.551 Pain in right hip (principal) | CPT/HCPCS: 73522 ==

== ENCOUNTER 2025-03-10 14:13 | Outpatient (REF) | payer MEDICARE, MEDICAID, SELFPAY ==
--- NOTE | ~2025-03-10 | US_ITS ---
EXAMINATION: US THYROID CLINICAL INFORMATION: Dysphonia COMPARISON: None available. TECHNIQUE: Linear transducer grayscale and color Doppler examination with attention to the region of the thyroid. FINDINGS: SIZE: Measurements of the thyroid lobes and nodules are given in sagittal, anteroposterior and transverse dimensions respectively. Right Thyroid Lobe: 3.1 x 0.68 x 1.3 cm, volume 1.4 mL. Parenchyma: The gland echotexture is normal. Thyroid vascularity is normal. Left Thyroid Lobe: 2.4 x 0.53 x 1.2 cm, volume 1.2 mL. Parenchyma: The gland echotexture is normal. Thyroid vascularity is normal. Isthmus: 0.24 cm in maximum AP dimension. Estimated total number of nodules greater than or equal to 1 cm: 0. Offset Assistant Press Operator nodules are described as follows: 1. Location: Lower pole right thyroid lobe. Size: 0.6 x 0.4 x 0.5 cm, volume 0.05 mL. Nodule characteristics: Composition: Solid (2). Echogenicity: Hypoechoic (2). Shape: Not taller than wide (0). Margins: Smooth (0). Echogenic Foci: None (0). ACR TI-RADS total points: 4 ACR TI-RADS category: 4 NODES: No lymphadenopathy is seen in the tissue surrounding the thyroid gland. US/US thyroid IMPRESSION: ACR TI-RADS category: 4 ACR TI-RADS RECOMMENDATION REFERENCE: Ultrasound-guided fine-needle aspiration, followup ultrasound, no further follow up. * TR1 (0 point) and TR2 (2 points): No FNA or follow up. * TR3 (3 points): FNA if more than or equal to 2.5 cm in maximum dimension, followup ultrasound in 1, 3 and 5 years if 1.5 to 2.4 cm in maximum dimension. * TR4 (4-6 points): FNA if more than or equal to 1.5 cm in maximum dimension, followup ultrasound in 1, 2, 3 and 5 years if 1 to 1.4 cm in maximum dimension. * TR5 (more than or equal to 7 points): FNA if more than or equal to 1 cm in maximum dimension, followup ultrasound every year for 5 years if 0.5 to 0.9 cm in maximum dimension. * TR3, TR4 or TR5 nodules that are below the size threshold for followup receive no follow up. Electronically signed by: Leonardo Munguia MD 03/10/2025 03:07 PM EDT RP
--- OUTSIDE RECORDS SUMMARY | 2025-03-10 17:30 | XMS_ITS | Clinical Summary ---
Author Organization [facility] ity Address [address] [place] [address] Care Team Providers Care Flexo Folder Gluer Operator Name Role Phone Queta Ambriz MD Primary Care Provider [phone] Medications isosorbide mononitrate (IMDUR) 30 mg 24 hr tablet Take 1 tablet (30 mg total) by mouth 1 (one) time each day. Do not crush or chew. 90 each 3 04/30/2024 Active Surgical History Surgery Date Site/Laterality Comments HYSTEROSCOPY 12/18/2007 PROCEDURE: [place] HYSTEROSCOPY BX ENDOMETRIUM&/POLYPC W/WO D&C; COMMENT: D&C, removal endometrial polyp CHOLECYSTECTOMY PROCEDURE: HISTORICAL CHOLECYSTECTOMY SHOULDER SURGERY PROCEDURE: HISTORICAL SHOULDER SURGERY; COMMENT: bilateral rotator cuff TOTAL KNEE ARTHROPLASTY 2016 Right PROCEDURE: [place] ARTHRP KNE CONDYLE&PLATU MEDIAL&LAT COMPARTMENTS; COMMENT: Dr. [...] 05/20/2022 Hypertension/CHF/CAD Annual BMP Blood Test 05/25/2022 Depression Screening 06/18/2024 COVID-19 Vaccine (1 - 2023-2 5 season) 2025 Influenza Vaccine (#1) 2025 HIB Vaccines Aged [...] age to complete this topic Care Teams Flexo Folder Gluer Operator Relationship Specialty Start Date End Date Queta Ambriz MD PCP - General 03/05/23
== END 2025-03-10 14:14 | disposition home or self-care (01) ==
LOC: HO.HMGCX 14:13
PROVIDERS: PCP Internal Medicine; Visit Provider Internal Medicine
DX: R49.0 Dysphonia (principal)
CPT/HCPCS: 76536

== ENCOUNTER → 2025-03-10 14:14 | Outpatient (BNV) | payer MEDICARE, MEDICAID, SELFPAY | PROVIDERS: PCP Internal Medicine; Visit Provider Radiology Diagnostic Radiology | DX: R49.0 Dysphonia (principal); E04.1 Nontoxic single thyroid nodule | CPT/HCPCS: 76536 ==

== ENCOUNTER 2025-05-19 13:42 | Outpatient (AMB) | payer MEDICARE, MEDICAID, SELFPAY ==
[2025-05-19 13:46] VITALS: BP 130/74; PULSE 73; RESP 17; O2SAT 97; BMI 41.0
--- NOTE | 2025-05-19 13:46 | MHC.PC.OV ---
Vital Signs 05/19/25 13:46 Height 5 ft Weight 210 lb BMI 41.0 BP 130/74 Blood Pressure Location Lt brachial Position Sitting Respiration 17 Pulse 73 Pulse Source Pulse Oximeter Pulse Oximetry (%) 97 Oxygen Delivery Method Room Air Intake Visit Reasons: Pre op Cataract 05/25/25 Dr. Peace Intake Note: Pt is here today for pre op visit. Pt is having cataract surgery on 05/25/25. Allergies oxycodone (From Percocet) Allergy (Severe, Verified 05/19/25 14:05) Itching, swelling of the eyelids Influenza Virus Vaccines Allergy (Verified 05/19/25 14:05) Swelling bees Allergy (Severe, Uncoded 05/19/25 14:05) Anaphylaxis Tobacco use date assessed: 01/21/25 Fall risk assessment: No Falls in past year Last assessed Fall Risk: 05/19/25 Dental Screening Dental Screen Date: 01/21/25 HPI Pre op Cataract 05/25/25 Dr. Peace HPI Details Pt presents for preop for cataract surgery. Hypertension hypothyroidism controlled on current medications. Patient denies chest pain, shortness or breath, PND, orthopnea, but she has not been physically active due to chronic knee pain. [facility] Medical History Macular degeneration of left eye Walker as ambulation aid Osteoarthritis TENZIN (obstructive sleep apnea) Restrictive lung disease Hypothyroid Osteoarthritis of left knee Restrictive lung disease Morbid obesity Surgical History History of total left knee replacement (TKR) Hx of basal cell carcinoma excision Hx laparoscopic cholecystectomy Hx of hysterectomy History of surgery of uterus History of shoulder surgery Hx of total knee replacement Hx of cholecystectomy Family History Father No problems noted. Mother Breast cancer Lung cancer Sister Breast cancer Social History Household Members: Spouse Caregiver staying overnight: No Housing: Apartment Are you a primary care transition coordinator to a significant other at home: No Do you presently have visiting nurse or other home services: No 75 years or older and lives alone: No Patient Tobacco Use Status: Former Tobacco user Tobacco use type: Cigarette e-Cigarette/Vaping Use: Never Used service: No Current occupational status: retired Cognitive needs: No Hearing needs: No Vision needs: Yes Questionnaire Thrive Questionnaire Date Thrive assessed: 07/23/24 I am a: Patient ZACH-7 AMB Questionnaire ZACH-7 Date ZACH - 7 assessed: 07/23/24 Source: Developed by Drs. Kulwinder Carcamo, Modesta Capellan, Kory Robert and colleagues, with an educational clara from [employer] Review of Systems Const All systems reviewed & are unremarkable except as noted in HPI and below ENT Reports no additional complaints Card Reports no additional complaints Resp Reports no additional complaints GI Reports no additional complaints Physical exam (Primary Care) Vital Signs: Last Vital Signs Pulse 73 05/19/25 13:46 Resp 17 05/19/25 13:46 BP 130/74 05/19/25 13:46 Pulse Ox 97 05/19/25 13:46 Oxygen Delivery Method Room Air 05/19/25 13:46 BMI result Body Mass Index 41.0 Tobacco/Smoking Status: Tobacco use Status Tobacco use date assessed 01/21/25 05/19/25 13:46 Patient Tobacco Use Status Former Tobacco user 05/19/25 13:46 Tobacco use type Cigarette 05/19/25 13:46 e-Cigarette/Vaping Use Never Used 05/19/25 13:46 Thrive Assessment: Date of Thrive Assessment Date Thrive assessed 07/23/24 05/19/25 13:46 Const General: no acute distress HENMT Head: Yes normal to inspection Ears: TM's normal bilaterally Throat: Yes posterior oropharynx normal Resp Effort & Inspection: normal respiratory effort Auscultation: clear to auscultation bilaterally Cardio Rhythm: regular rhythm Heart sounds: S1 normal heart sound present and S2 normal heart sound present GI Inspection: Yes normal to inspection Palpation (GI): Soft to palpation Percussion: Yes normal to percussion Auscultation: normal bowel sounds Coding Level of Care Code Est Pt Level 4 (85188) Diagnoses HTN (hypertension) I10 Hypothyroid E03.9 Cataract H26.9 Assessment & Plan Assessment & Plan (1) HTN (hypertension): Code(s): I10 - Essential (primary) hypertension Category: Medical Plan: Continue current medications (2) Hypothyroid: Code(s): E03.9 - Hypothyroidism, unspecified Category: Medical Plan: Continue levothyroxine (3) Cataract: Code(s): H26.9 - Unspecified cataract Category: Medical Plan: Patient is medically cleared for cataract surgery
--- OUTSIDE RECORDS SUMMARY | 2025-05-19 15:43 | XMS_ITS | Clinical Summary ---
Author Organization [facility] it Address [address] [place] [address] Care Team Providers Care Sales Vendor Name Role Phone Queta Ambriz MD Primary Care Provider [phone] Medications isosorbide mononitrate (IMDUR) 30 mg 24 hr tablet Take 1 tablet (30 mg total) by mouth 1 (one) time each day. Do not crush or chew. 90 each 1 5 Active isosorbide mononitrate (IMDUR) 30 mg 24 hr tablet Take 1 tablet (30 mg total) by mouth 1 (one) time each day. Do not crush or chew. 90 each 3 4 04/20/20 25 Discontinu ed(Reorder ) Surgical History Surgery Date Site/Laterality Comments HYSTEROSCOPY 12/18/2007 PROCEDURE: [place] HYSTEROSCOPY BX ENDOMETRIUM&/POLYPC W/WO D&C; COMMENT: D&C, removal endometrial polyp CHOLECYSTECTOMY PROCEDURE: HISTORICAL CHOLECYSTECTOMY SHOULDER SURGERY PROCEDURE: HISTORICAL SHOULDER SURGERY; COMMENT: bilateral rotator cuff TOTAL KNEE ARTHROPLASTY 2016 Right PROCEDURE: [place] ARTHRP KNE CONDYLE&PLATU MEDIAL&LAT COMPARTMENTS; COMMENT: Dr. Machado HYSTERECTOMY 2014 PROCEDURE: HISTORICAL HYSTERECTOMY; COMMENT: Dr. Taylor Medical History Medical History Date Comments Apnea DX:Apnea; COMMEN T: nocturnal hypoxia/ nc o2/ Dr. Prakash Depression DX:Depression Dyspepsia DX:Dyspepsia Obesity DX:Obesity Osteoarthritis of both knees DX: Osteoarthritis of both knees; COMMENT: Dr. Machado History of colonoscopy DX:Histor y of colonoscopy; COMMENT: Dr.Pleet Hx of mammogram DX:Hx of mammogr am; COMMENT: Dr. Parnell Family History Medical History Relation Name Comments Breast cancer Mother onset age 75 Ovarian cancer Mother onset age 75 Stomach cancer Sister 1 Relation Name Status Comments Mother Sister 1 Sister 2 Social History Tobacco Use Types Packs/Day Years Used Date Smoking Tobacco: Former Cigarettes 0 Q uit: 06/18/1995 Smokeless Tobacco: Never Alcohol [...] Test 05/25/2022 Depression Screening 06/18/2024 COVID-19 Vaccine ( - 2024-2 6 season) 2025 Influenza Vaccine (#1) 2025 HIB [...] age to complete this topic Care Teams Sales Vendor Relationship Specialty Start Date End Date Queta Ambriz MD PCP - General 03/05/23
== END 2025-05-19 14:25 | disposition home or self-care (01) ==
LOC: HO.HMCC 13:43
PROVIDERS: PCP Internal Medicine; Visit Provider Internal Medicine
DX: I10 Essential (primary) hypertension (principal); E03.9 Hypothyroidism, unspecified; H26.9 Unspecified cataract

== ENCOUNTER → 2025-05-19 13:42 | Outpatient (BNVA) | payer MEDICARE, MEDICAID, SELFPAY | PROVIDERS: PCP Internal Medicine; Visit Provider Internal Medicine | DX: I10 Essential (primary) hypertension (principal); E03.9 Hypothyroidism, unspecified; H26.9 Unspecified cataract | CPT/HCPCS: 99212 ==